=== PATIENT | male | born 1945 | race Caucasian/White ===

== ENCOUNTER 2016-09-12 08:34 | Observation (INO) | payer MEDICARE, OTHER ==
[2016-09-12] MEDS ORDERED: ASPIRIN CHEW 81 MG TABLET PO STA (08:50)
[2016-09-12] MEDS ORDERED: MORPHINE 2 MG/ML SYRINGE IVP STA (08:50)
[2016-09-12] MEDS ORDERED: NITROGLYCERIN 2% PASTE TOP STA (08:50)
[2016-09-12] MEDS ORDERED: ASPIRIN CHEW 81 MG TABLET ONE (08:57)
[2016-09-12] MEDS ORDERED: MORPHINE 2 MG/ML SYRINGE ONE (08:57)
[2016-09-12] MEDS ORDERED: NITROGLYCERIN 2% PASTE TOP ONE (08:57)
[2016-09-12] MEDS ORDERED: SODIUM CHLORIDE FLUSH 0.9% 10 ML SYRINGE IVP PRN (12:05)
[2016-09-12] MEDS ORDERED: MORPHINE 2 MG/ML SYRINGE IVP PRN (12:10)
[2016-09-12] MEDS: SODIUM CHLORIDE FLUSH 0.9% 10 ML SYRINGE IVP SCH ×2 (14:42→23:17)
[2016-09-12] MEDS ORDERED: NITROGLYCERIN SL 0.4 MG TABLET SL PRN (15:17)
[2016-09-12] MEDS ORDERED: DEXTROSE 5% 1,000 ML IV PRN (16:08)
[2016-09-12] MEDS ORDERED: DEXTROSE GEL 37.5 GM TUBE PO PRN (16:08)
[2016-09-12] MEDS ORDERED: DEXTROSE 50% ABBOJECT 25 GM/50 ML SYRINGE IVP PRN (16:08)
[2016-09-12] MEDS ORDERED: GLUCAGON 1 MG/ML VIAL SUBQ PRN (16:08)
[2016-09-12] MEDS ORDERED: INSULIN ASPART 300 UNIT/3 ML PEN SUBQ SCH ×2 (17:00)
[2016-09-12] MEDS ORDERED: ATORVASTATIN 40 MG TABLET PO SCH (21:00)
[2016-09-12] MEDS: INSULIN ASPART 300 UNIT/3 ML PEN SUBQ SCH (21:40)
[2016-09-12] MEDS: ATENOLOL 25 MG TABLET PO SCH (23:52)
[2016-09-13] MEDS: SODIUM CHLORIDE FLUSH 0.9% 10 ML SYRINGE IVP SCH (05:52)
[2016-09-13] MEDS: INSULIN ASPART 300 UNIT/3 ML PEN SUBQ SCH (07:56)
[2016-09-13] MEDS ORDERED: INSULIN ASPART 300 UNIT/3 ML PEN SUBQ SCH ×2 (08:00→12:00)
[2016-09-13] MEDS ORDERED: INSULIN GLARGINE 300 UNIT/3 ML PEN SUBQ SCH (09:00)
[2016-09-13] MEDS ORDERED: CLOPIDOGREL 75 MG TABLET PO SCH (09:00)
[2016-09-13] MEDS ORDERED: POLYETHYLENE GLYCOL 3350 17 GM PACKET PO SCH (09:00)
[2016-09-13] MEDS ORDERED: hydroCHLOROthiazide 25 MG TABLET PO SCH (09:00)
[2016-09-13] MEDS ORDERED: LOSARTAN 50 MG TABLET PO SCH (09:00)
[2016-09-13] MEDS ORDERED: ASPIRIN EC 81 MG TABLET PO SCH (09:00)
[2016-09-13] MEDS ORDERED: OLOPATADINE HCL EACHEYE SCH (09:00)
[2016-09-13] MEDS: ATENOLOL 25 MG TABLET PO SCH (09:32)
== END 2016-09-13 09:36 | disposition home or self-care (01) ==
DX: R07.89 Other chest pain (principal); I25.10 Atherosclerotic heart disease of native coronary artery without angina pectoris; I11.9 Hypertensive heart disease without heart failure; Z95.5 Presence of coronary angioplasty implant and graft; E11.9 Type 2 diabetes mellitus without complications; E78.5 Hyperlipidemia, unspecified; Z79.02 Long term (current) use of antithrombotics/antiplatelets; Z79.82 Long term (current) use of aspirin; Z79.899 Other long term (current) drug therapy
CPT/HCPCS: 36415; 71020; 80053; 83036; 83690; 84484; 85025; 93005; 93010; 96374; 99284; A9270; G0378

== ENCOUNTER 2017-11-25 17:36 | Emergency (ER) | payer MEDICARE, OTHER ==
[2017-11-25 17:44] VITALS: BP 132/51
--- NOTE | 2017-11-25 18:16 | ED Physician Documentation ---
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 [place] was dark and he did not see the open villeda, and he fell down into as he was walking. Landed on his feet, with abrasions of knees as he fell through the opening and struck left lateral thigh, with abrasion and focal swelling. Was able to get out and walk. Did not strike head, chest, abd, back. Fell about 4 feet down) Fall distance: Less than 5ft Where injury occurred: Work Timing - onset: Today Injury(ies) location: Right Lower Extremity (anterior knee), Left Lower Extremity (lateral thigh and anterior knee). No: Head, Face, Neck, Chest, Abdomen, Back Associated symptoms: No: LOC, AMS, Weakness, Paresthesias Worsens with: Palpation. No: Movement Contributing factors: No: Anticoagulated (takes Plavix but no anticoagulants), Intoxicated Similar symptoms before: Has not had sx before Recently seen: Not recently seen Review of Systems Cardiac: denies: Chest pain / pressure Respiratory: denies: Dyspnea, Cough GI: denies: Abdominal Pain, Nausea, Vomiting Musculoskeletal: denies: Neck pain, Back pain Neurologic: denies: Focal weakness, Numbness, Confused, Altered mental status, Headache, Head injury, LOC PD PAST MEDICAL HISTORY - Past Medical History Cardiovascular: Hypertension, High cholesterol, [place] Respiratory: None Endocrine/Autoimmune: Type 2 diabetes GI: None : None HEENT: Macular degeneration Psych: None Derm: None - Past Surgical History Past Surgical History: Yes Ortho: Rotator cuff repair Cardiovascular: Coronary stent - Present Medications Home Medications: Ambulatory Orders Medication Instructions Recorded Confirmed Aspirin [Aspir 81] 81 mg PO DAILY 06/07/14 09/12/16 Insulin Glargine [Lantus] 34 units SUBQ DAILY 06/07/14 09/12/16 Insulin Aspart [Novolog Flexpen] 5 - 10 units SUBQ QDLUNCH 09/12/16 09/12/16 Insulin Aspart [Novolog Flexpen] 5 - 15 units SUBQ QDBREAKFAST 09/12/16 09/12/16 Insulin Aspart [Novolog Flexpen] 9 - 10 units SUBQ QDDINNER 09/12/16 09/12/16 Olopatadine HCl [Patanol] 1 drops EACHEYE DAILY 09/12/16 09/12/16 Atenolol [Tenormin] 25 mg PO BID tablet 09/13/16 Atorvastatin [Lipitor] 80 mg PO QPM tablet 09/13/16 Clopidogrel [Plavix] 75 mg PO DAILY tablet 09/13/16 Insulin Aspart [NovoLOG] 1 - 9 unit SUBQ 09/13/16 0800,1200,1700,2100 pen Losartan [Cozaar] 100 mg PO DAILY tablet 09/13/16 Nitroglycerin [Nitrostat] 0.4 mg SL Q5M PRN #0 tablet 09/13/16 Polyethylene Glycol 3350 [Miralax] 17 gm PO DAILY packet 09/13/16 hydroCHLOROthiazide [Hydrodiuril] 25 mg PO DAILY tablet 09/13/16 - Allergies Allergies/Adverse Reactions: Allergies Allergy/AdvReac Type Severity Reaction Status Date / Time No Known Drug Allergies Allergy Verified 09/12/16 08:39 - Social History Does the pt smoke?: No Smoking Status: Never smoker Does the pt drink ETOH?: Yes Does the pt have substance abuse?: No - Immunizations Immunizations are current?: No Immunizations: TDAP current <10years - POLST Patient has POLST: No PD ED PE NORMAL - Vitals Vital signs reviewed: Yes - General General: Alert and oriented X 3, No acute distress (ambulatory without limp. ), Well developed/nourished - HEENT HEENT: Atraumatic - Neck Neck: Supple, no meningeal sign, No bony TTP - Cardiac Cardiac: RRR, No murmur - Respiratory Respiratory: Clear bilaterally, Other (no chestwall tenderness. ) - Abdomen Abdomen: Soft, Non tender - Back Back: No spinal TTP - Derm Derm: Normal color, Warm and dry - Extremities Extremities: Other (left lateral thigh hematoma and abrasion. No bony tenderness. Both knee with anterior abrasions but no effusion, no bony tenderness, and good ROM. ) - Neuro Neuro: Alert and oriented X 3, No motor deficit, No sensory deficit, Normal speech Eye Opening: Spontaneous Motor: Obeys Commands Verbal: Oriented GCS Score: 15 - Psych Psych: Normal mood, Normal affect Results - Vitals Vitals: Oxygen O2 Source Room air - Labs Labs: Laboratory Tests 11/25/17 11/25/17 11/25/17 18:05 18:05 18:05 WBC 10.1 RBC 4.25 L Hgb 13.9 L Hct 40.7 L MCV 95.7 H MCH 32.6 H MCHC 34.1 RDW 14.2 Plt Count 199 MPV 7.5 Neut # (Auto) 5.9 Lymph # (Auto) 3.2 [place] # (Auto) 0.6 Eos # (Auto) 0.3 Baso # (Auto) 0.1 Absolute Nucleated RBC 0.00 Nucleated RBC % 0.0 PT 11.8 INR 1.0 Sodium 136 Potassium 4.3 Chloride 101 Carbon Dioxide 26 Anion Gap 9.0 BUN 18 Creatinine 1.1 Estimated GFR (MDRD) 65 L Glucose 165 H Calcium 9.0 Total Bilirubin 1.0 AST 39 ALT 37 Alkaline Phosphatase 51 Total Protein 7.4 Albumin 4.3 Globulin 3.1 Albumin/Globulin Ratio 1.4 Lipase 20 L PD MEDICAL DECISION MAKING - ED course Complexity details: considered differential (did not strike head. Is on Plavix but not anticoagulants. Seems isolated lower ext injuries. ), d/w patient - Sepsis Event Vital Signs: Oxygen O2 Source Room air Departure - Departure Disposition: 01 Home, Self Care Clinical Impression: Fall from height of greater than 3 feet Knee abrasion Qualifiers: Encounter type: initial encounter Laterality: unspecified laterality Qualified Code(s): S80.219A - Abrasion, unspecified knee, initial encounter Thigh hematoma Qualifiers: Encounter type: initial encounter Laterality: left Qualified Code(s): S70.12XA - Contusion of left thigh, initial encounter Condition: Stable Record reviewed to determine appropriate education?: Yes Instructions: ED Hematoma Follow-Up: WARREN GOMEZ MD [Primary Care Provider] - Comments: Cleanse the wounds 2-3 times a day with soap and water and apply mupirocin ointment or other ointments so does not get dry and hard. Ice to the hematoma swelling this evening frequently. Activity as able. Recheck if signs of infection develop. Continue usual medications and drink lots of fluid. Tylenol if needed for pains. Discharge Date/Time: 11/25/17 19:17
[2017-11-25 18:32] LABS: ALBUMIN 4.3 g/dL (3.2-5.5); ALBUMIN/GLOBULIN RATIO 1.4 (1.0-2.2); BASOPHILS # (AUTO) 0.1 10^3/uL (0.0-0.1); BASOPHILS % (AUTO) 0.5 %; CREATININE 1.1 mg/dL (0.6-1.2); EOSINOPHILS # (AUTO) 0.3 10^3/uL (0.0-0.7); EOSINOPHILS % (AUTO) 3.3 %; HGB - HEMOGLOBIN 13.9 g/dL (14.0-18.0); LYMPHOCYTES # (AUTO) 3.2 10^3/uL (1.5-3.5); LYMPHOCYTES % (AUTO) 31.9 %; MEAN CORPUSCULAR HEMOGLOBIN 32.6 pg (27.0-31.0); MEAN CORPUSCULAR HGB CONC 34.1 g/dL (32.0-36.0); MEAN CORPUSCULAR VOLUME 95.7 fL (80.0-94.0); MEAN PLATELET VOLUME 7.5 fL (7.4-11.4); MONOCYTES # (AUTO) 0.6 10^3/uL (0.0-1.0); MONOCYTES % (AUTO) 5.7 %; NEUTROPHILS # (AUTO) 5.9 10^3/uL (1.5-6.6); NEUTROPHILS % (AUTO) 58.6 %; PLT - PLATELET COUNT 199 10^3/uL (130-450); RED BLOOD COUNT 4.25 10^6/uL (4.70-6.10); RED CELL DISTRIBUTION WIDTH 14.2 % (12.0-15.0); TOTAL PROTEIN 7.4 g/dL (6.7-8.2); WHITE BLOOD COUNT 10.1 x10^3/uL (4.8-10.8)
[2017-11-25] MEDS ORDERED: MUPIROCIN 2% OINT 1 GM TOP STA (18:34)
[2017-11-25 18:36] LABS: PT - PROTHROMBIN TIME 11.8 secs (9.9-12.6)
== END 2017-11-25 19:17 | disposition home or self-care (01) ==
LOC: ED 17:36
DX: S80.219A Abrasion, unspecified knee, initial encounter (principal); S70.12XA Contusion of left thigh, initial encounter; S70.312A Abrasion, left thigh, initial encounter; W17.89XA Other fall from one level to another, initial encounter; Y93.01 Activity, walking, marching and hiking; Y92.814 Boat as the place of occurrence of the external cause; Y99.0 Civilian activity done for income or pay; I10 Essential (primary) hypertension; E78.00 Pure hypercholesterolemia, unspecified; I25.2 Old myocardial infarction; E11.9 Type 2 diabetes mellitus without complications; Z79.4 Long term (current) use of insulin; Z95.5 Presence of coronary angioplasty implant and graft; Z79.82 Long term (current) use of aspirin; Z79.02 Long term (current) use of antithrombotics/antiplatelets
CPT/HCPCS: 36415; 80053; 83690; 85025; 85610; 99283; A9270

== ENCOUNTER 2020-03-09 14:37 | Outpatient (CLI) | payer MEDICARE, OTHER | END 2020-03-09 14:38 | disposition home or self-care (01) | LOC: COV 14:37 | PROVIDERS: ATTEND Family Medicine | DX: U07.1 COVID-19 (principal) ==

== ENCOUNTER 2020-03-21 07:18 | Observation (INO) | payer MEDICARE, OTHER ==
[2020-03-21] MEDS ORDERED: SODIUM CHLORIDE 0.9% 1,000 ML IV STA ×2 (07:37→08:56)
[2020-03-21] MEDS ORDERED: diltiaZEM INJ 5 MG/ML VIAL IVP STA ×2 (07:53→08:57)
--- NOTE | 2020-03-21 07:59 | ED Physician Documentation ---
History of Present Illness - Stated complaint Stated Complaint: WEAKNESS - Chief complaint Chief Complaint: General - History obtained from History obtained from: Patient, Family - Additonal information Additional information: Patient comes emergency department complaining of just feeling fatigued for the last approximately 3 to 4 days. The patient's states she noticed a big difference in the patient starting a few days ago. The patient and his have been quarantining for the last 2 weeks, secondary to the becoming positive for COVID. The patient also tested positive, but did not have much in the way of symptoms. He states he is felt a little more tired than usual, but for the last 3 days, has not felt like getting out of bed. He denies cough or shortness of breath. No chest pain or fever. No feeling of palpitations or lightheadedness. He states that he could not bring himself to take his meds and has not been taking his antihypertensives or his diabetic meds during these last few days. The patient denies nausea or vomiting. No abdominal pain or sore throat. No dysuria. states that the patient has a history of coronary artery disease and has had a couple of MIs. He has had angioplasty twice and the last stent placement was about 4 years ago. states that the last time the patient had a an CA, he was asymptomatic. Patient states he feels "dehyd rated". states the patient has not been eating much and had only a protein bar yesterday, though he did state he was hungry on the way to the hospital this patient denies any history of atrial fibrillation or other rhythm disorder. No other complaints at this time. Review of Systems Ten Systems: 10 systems reviewed and negative Constitutional: reports: Fatigue Eyes: reports: Reviewed and negative Ears: reports: Reviewed and negative Nose: reports: Reviewed and negative Throat: reports: Reviewed and negative Cardiac: reports: Reviewed and negative. denies: Chest pain / pressure, Palpitations Respiratory: reports: Reviewed and negative. denies: Dyspnea, Cough GI: reports: Reviewed and negative. denies: Nausea : reports: Reviewed and negative. denies: Dysuria Skin: reports: Reviewed and negative Musculoskeletal: reports: Reviewed and negative Neurologic: reports: Generalized weakness, Reviewed and negative Psychiatric: reports: Reviewed and negative Endocrine: reports: Reviewed and negative Immunocompromised: reports: Reviewed and negative PD PAST MEDICAL HISTORY - Past Medical History Cardiovascular: Hypertension, High cholesterol, [place] Respiratory: None Endocrine/Autoimmune: Type 2 diabetes GI: None : None HEENT: Macular degeneration Psych: None Derm: None - Past Surgical History Past Surgical History: Yes Ortho: Rotator cuff repair Cardiovascular: Coronary stent - Present Medications Home Medications: Ambulatory Orders Medication Instructions Recorded Confirmed Aspirin [Aspir 81] 81 mg PO DAILY 06/07/14 03/21/20 Insulin Glargine [Lantus] 0 units SUBQ DAILY 06/07/14 03/21/20 Olopatadine HCl [Patanol] 1 drops EACHEYE DAILY PRN 09/12/16 03/21/20 Atorvastatin [Lipitor] 80 mg PO QPM tablet 09/13/16 03/21/20 Clopidogrel [Plavix] 75 mg PO DAILY tablet 09/13/16 03/21/20 Nitroglycerin [Nitrostat] 0.4 mg SL Q5M PRN #0 tablet 09/13/16 03/21/20 Gabapentin [Neurontin] 200 mg PO TID 03/21/20 03/21/20 Losartan [Cozaar] 50 mg PO DAILY 03/21/20 03/21/20 Metformin HCl [Metformin HCl ER] 500 mg PO BID 03/21/20 03/21/20 atenoloL [Tenormin] 0.5 tab PO BID 03/21/20 03/21/20 - Allergies Allergies/Adverse Reactions: Allergies Allergy/AdvReac Type Severity Reaction Status Date / Time No Known Drug Allergies Allergy Verified 03/21/20 07:41 - Social History Does the pt smoke?: No Smoking Status: Never smoker Does the pt drink ETOH?: Yes Does the pt have substance abuse?: No - Immunizations Immunizations are current?: No Immunizations: TDAP current <10years - POLST Patient has POLST: No PD ED PE NORMAL - Vitals Vital signs reviewed: Yes - General General: Alert and oriented X 3, No acute distress - HEENT HEENT: Atraumatic, PERRL, EOMI, Moist mucous membranes - Neck Neck: Supple, no meningeal sign - Cardiac Cardiac: No murmur, Other (Irregular rate and rhythm, tachycardic) - Respiratory Respiratory: No respiratory distress, Clear bilaterally - Abdomen Abdomen: Soft, Non tender, Non distended - Back Back: No CVA TTP - Derm Derm: Normal color, Warm and dry, No rash - Extremities Extremities: No deformity, No edema, No calf tenderness / cord - Neuro Neuro: Alert and oriented X 3, Other (Grossly normal) - Psych Psych: Normal mood, Normal affect Results - Vitals Vitals: Vital Signs - 24 hr 03/21/20 03/21/20 10:00 11:30 Heart Rate 101 H 81 Respiratory 17 16 Rate Blood Pressure 139/66 H 111/73 O2 Saturation 97 98 Oxygen O2 Source Room air - EKG (time done) 0740 Rate: Rate (enter#) (155) Rhythm: Atrial fibrillation [place]: Normal Intervals: Normal [place] QRS: Normal Ischemia: Normal ST segments, Non specific changes Compare to prior EKG: Old EKG unavailable Computer interpretation: Agree with computer - Labs Labs: Laboratory Tests 03/21/20 03/21/20 03/21/20 07:33 07:50 07:50 WBC 10.3 RBC 5.17 Hgb 16.7 Hct 47.6 MCV 92.1 MCH 32.3 H MCHC 35.1 RDW 11.9 L Plt Count 210 MPV 9.9 Neut # (Auto) 7.9 H Lymph # (Auto) 1.5 [place] # (Auto) 0.7 Eos # (Auto) 0.1 Baso # (Auto) 0.0 Absolute Nucleated RBC 0.00 Nucleated RBC % 0.0 PT 13.3 H INR 1.2 VBG pH VBG pCO2 VBG pO2 VBG HCO3 VBG Total CO2 VBG O2 Saturation VBG Base Excess Sodium Potassium Chloride Carbon Dioxide Anion Gap BUN Creatinine Estimated GFR (MDRD) Glucose POC Whole Bld Glucose 434 H Calcium Total Bilirubin AST ALT Alkaline Phosphatase Troponin I High Sens B-Natriuretic Peptide Total Protein Albumin Globulin Albumin/Globulin Ratio Lipase Serum Ketones 03/21/20 03/21/20 03/21/20 07:50 07:50 07:50 WBC RBC Hgb Hct MCV MCH MCHC RDW Plt Count MPV Neut # (Auto) Lymph # (Auto) [place] # (Auto) Eos # (Auto) Baso # (Auto) Absolute Nucleated RBC Nucleated RBC % PT INR VBG pH VBG pCO2 VBG pO2 VBG HCO3 VBG Total CO2 VBG O2 Saturation VBG Base Excess Sodium 135 Potassium 5.2 H Chloride 92 L Carbon Dioxide 18 L Anion Gap 25.0 H BUN 38 H Creatinine 1.5 H Estimated GFR (MDRD) 46 L Glucose 496 H POC Whole Bld Glucose Calcium 9.6 Total Bilirubin 2.0 H AST 33 ALT 26 Alkaline Phosphatase 61 Troponin I High Sens 32.4 H* B-Natriuretic Peptide 187 H Total Protein 8.1 Albumin 3.9 Globulin 4.2 Albumin/Globulin Ratio 0.9 L Lipase 20 L Serum Ketones 03/21/20 03/21/20 03/21/20 09:35 10:23 10:36 WBC RBC Hgb Hct MCV MCH MCHC RDW Plt Count MPV Neut # (Auto) Lymph # (Auto) [place] # (Auto) Eos # (Auto) Baso # (Auto) Absolute Nucleated RBC Nucleated RBC % PT INR VBG pH 7.338 VBG pCO2 32.3 L VBG pO2 57.1 H VBG HCO3 17.0 L VBG Total CO2 17.9 L VBG O2 Saturation 88.2 H VBG Base Excess -7.6 L Sodium Potassium Chloride Carbon Dioxide Anion Gap BUN Creatinine Estimated GFR (MDRD) Glucose POC Whole Bld Glucose 409 H 341 H Calcium Total Bilirubin AST ALT Alkaline Phosphatase Troponin I High Sens B-Natriuretic Peptide Total Protein Albumin Globulin Albumin/Globulin Ratio Lipase Serum Ketones 03/21/20 03/21/20 10:36 10:36 WBC RBC Hgb Hct MCV MCH MCHC RDW Plt Count MPV Neut # (Auto) Lymph # (Auto) [place] # (Auto) Eos # (Auto) Baso # (Auto) Absolute Nucleated RBC Nucleated RBC % PT INR VBG pH VBG pCO2 VBG pO2 VBG HCO3 VBG Total CO2 VBG O2 Saturation VBG Base Excess Sodium Potassium Chloride Carbon Dioxide Anion Gap BUN Creatinine Estimated GFR (MDRD) Glucose POC Whole Bld Glucose Calcium Total Bilirubin AST ALT Alkaline Phosphatase Troponin I High Sens 32.7 H* B-Natriuretic Peptide Total Protein Albumin Globulin Albumin/Globulin Ratio Lipase Serum Ketones SMALL H PD MEDICAL DECISION MAKING - ED course Complexity details: reviewed old records, reviewed results, re-evaluated patient, considered differential, d/w patient, d/w family ED course: The patient was found to have a very tachycardic heart rate, and monitoring EKG showed a narrow complex rhythm with irregularity, consistent with atrial fibrillation with RVR. IV was placed and patient was started on a normal saline bolus. He was given 25 mg of Cardizem IV. The patient verified that he has not in any way had a distinctive onset of symptoms, only that he had been tired for the last several days. He had not felt any palpitations, chest pain, shortness of breath, or any other discomfort in his chest to indicate when the A. fib with RVR might of started. There is also not a distinctive beginning point to his tiredness. As such, I did not feel that this patient should be cardioverted at if his blood pressure was not low at this time and he was not having chest pain. Labs and chest x-ray were also obtained, as well as urinalysis. Pt showed some improvement in HR with Cardizem, but after 2 doses, was still tachycardic, and as such, I felt he should be admitted to the hospital. I spoke with Dr. Green, who agreed to admit the pt to his service. Departure - Departure Disposition: 66 [facility] DC/Xfer Clinical Impression: Atrial fibrillation with RVR, Hyperglycemia due to diabetes mellitus Condition: Serious Discharge Date/Time: 03/21/20 12:20
[2020-03-21 08:03] LABS: BASOPHILS % (AUTO) 0.3 %; EOSINOPHILS # (AUTO) 0.1 10^3/uL (0.0-0.7); EOSINOPHILS % (AUTO) 0.5 %; HGB - HEMOGLOBIN 16.7 g/dL (14.0-18.0); LYMPHOCYTES # (AUTO) 1.5 10^3/uL (1.5-3.5); MEAN CORPUSCULAR HEMOGLOBIN 32.3 pg (27.0-31.0); MEAN CORPUSCULAR HGB CONC 35.1 g/dL (32.0-36.0); MEAN CORPUSCULAR VOLUME 92.1 fL (80.0-94.0); MEAN PLATELET VOLUME 9.9 fL (7.4-11.4); MONOCYTES # (AUTO) 0.7 10^3/uL (0.0-1.0); MONOCYTES % (AUTO) 6.6 %; NEUTROPHILS # (AUTO) 7.9 10^3/uL (1.5-6.6); NEUTROPHILS % (AUTO) 77.1 %; PLT - PLATELET COUNT 210 10^3/uL (130-450); RED BLOOD COUNT 5.17 10^6/uL (4.70-6.10); RED CELL DISTRIBUTION WIDTH 11.9 % (12.0-15.0); WHITE BLOOD COUNT 10.3 x10^3/uL (4.8-10.8)
[2020-03-21 08:13] LABS: INR 1.2 (0.8-1.2); PT - PROTHROMBIN TIME 13.3 secs (9.9-12.6)
[2020-03-21 08:22] LABS: ALBUMIN 3.9 g/dL (3.2-5.5); ALBUMIN/GLOBULIN RATIO 0.9 (1.0-2.2); CALCIUM 9.6 mg/dL (8.5-10.3); CREATININE 1.5 mg/dL (0.6-1.2); TOTAL PROTEIN 8.1 g/dL (6.7-8.2)
[2020-03-21] MEDS ORDERED: INSULIN REGULAR HUMAN 300 UNIT/3 ML VIAL IVP ONE (08:25)
[2020-03-21] MEDS ORDERED: INSULIN ASPART 100 UNIT/1 ML 10 ML MDV SUBQ STA (08:29)
[2020-03-21] MEDS ORDERED: INSULIN REGULAR HUMAN 100 UNIT/1 ML 10 ML MDV IVP STA ×2 (08:30→09:37)
--- NOTE | 2020-03-21 09:01 | XRAY Report ---
PROCEDURE: Chest 1 View X-Ray INDICATIONS: chest pain TECHNIQUE: One view of the chest was acquired. COMPARISON: Chest x-ray 09/12/2016 FINDINGS: Surgical changes and devices: None. Lungs and pleura: No pleural effusions or pneumothorax. Lungs are clear. Mediastinum: Mediastinal contours appear normal. Heart size is mildly prominent. Bones and chest wall: No suspicious bony lesions. Overlying soft tissues appear unremarkable. Old right rib fractures IMPRESSION: No acute pulmonary process. Reviewed by: Emilia Hendricks MD on 03/21/2020 9:00 AM PDT Approved by: Emilia Hendricks MD on 03/21/2020 9:00 AM PDT Station ID: [id number]
[2020-03-21] MEDS ORDERED: METOPROLOL TARTRATE 50 MG TABLET PO STA (10:07)
[2020-03-21 10:59] LABS: VBG PCO2 32.3 mmHg (41-51); VBG PH 7.338 (7.31-7.41); VBG PO2 57.1 mmHg (25-47)
[2020-03-21 11:00] LABS: VBG BASE EXCESS -7.6 mmol/L (-2 - +2); VBG TOTAL CO2 17.9 mmol/L (24-29)
[2020-03-21] MEDS ORDERED: ONDANSETRON 4 MG/2 ML VIAL IVP PRN (11:34)
[2020-03-21] MEDS ORDERED: ACETAMINOPHEN 325 MG TABLET PO PRN (11:34)
[2020-03-21] MEDS ORDERED: SODIUM CHLORIDE FLUSH 0.9% 10 ML SYRINGE IVP PRN (11:34)
--- NOTE | 2020-03-21 11:38 | HISTORY & PHYSICAL EXAMINATION ---
Chief Complaint - Chief Complaint Chief Complaint: Fatigue and poor oral intake History of Present Illness - Admitted From Admitted From:: Home - History Obtained From Records Reviewed: Yes History obtained from: Patient, Spouse, ER Physician, EMR - History of Present Illness HPI Comment/Other: This is a pleasant 74-year-old male with a past medical history significant for type 2 diabetes mellitus treated with insulin, coronary artery disease status post stenting approximately 4 years ago, hyperlipidemia, and recent diagnosis of COVID-19 who presents today complaining of weakness and poor oral intake for the past few days. The patient states he came to the ER today because his was concerned that he had not been eating much and was quite fatigued. His tells me that she was diagnosed with COVID-19 a few weeks ago and her was diagnosed on March 09. They have both been in quarantine since that period of time. The patient states he stopped taking his medications after the diagnosis for an unclear reason but he states that he just was shocked by the diagnosis. He reports taking no insulin or any of his cardiac meds since that time. He has had progressive fatigue that has really become more prominent this past few days. His notes that he has been much been in bed the past 2 to 3 days. He has not been eating much at all. All he had yesterday was a protein shake. He reports just feeling fatigued and generalized weakness. He reports no fevers, chills, dyspnea. Denies any sore throat, nasal congestion. He reports no chest pain or palpitations. He states he did have diarrhea about a week ago but this has since resolved. He has no abdominal pain, nausea, vomiting. He reports a history of coronary artery disease with stenting about 4 years ago at [place]. He has never had a diagnosis of atrial fibrillation in the past. He tells me he takes Plavix daily but he is no longer on aspirin. He has not taken the Plavix just like the rest of his medications this past 2 weeks. In the emergency department, he was found to be afebrile with temperature of 36.3 C. He was tachycardic with a heart rate in the 110s and he was in atrial fibrillation. His blood pressure is 125/47. He was not tachypneic and saturating 99% on room air. Labs were significant for a bicarbonate of 18, anion gap of 25, BUN of 38, and a creatinine of 1.5. His troponin was elevated at 32.4. His BNP was 187. His blood glucose was 496 on the basic metabolic panel. Serum ketones were small. VBG revealed a pH of 7.338. Chest x-ray was unremarkable. EKG revealed atrial fibrillation with heart rates in the 150s. Received 25 mg of IV diltiazem initially followed by 20 mg push an hour later. His heart rates have since improved to the 90s to low 100s. He was given 10 units of IV insulin initially followed by another 10 units an hour later as well. He also received 2 L of normal saline in the emergency department. Given the above findings, medicine was consulted for admission. I did discuss goals of care with the patient and he would like to be a full code. History - Past Medical History Cardiovascular: reports: Hypertension, High cholesterol, [place] Respiratory: reports: None Endocrine/Autoimmune: reports: Type 2 diabetes GI: reports: None : reports: None HEENT: reports: Macular degeneration Psych: reports: None Derm: reports: None MRSA Hx?: No - Past Surgical History Ortho: reports: Rotator cuff repair Cardiovascular: reports: Coronary stent - Family & Social History Family History Comment/Other: Father had prostate cancer and his mother had a stroke. He reports no other family history. Both of his parents are . He still has one living brother. Living arrangement: At home Living Situation: With spouse/s.o. Social History Notes: Lives at home with his . He was previously in the [employer] but retired in 1988. He is a non-smoker and does not drink alcohol. - POLST Patient has POLST: No Meds/Allgy - Home Medications Home Medications: Ambulatory Orders Medication Instructions Recorded Confirmed Aspirin [Aspir 81] 81 mg PO DAILY 06/07/14 03/21/20 Insulin Glargine [Lantus] 0 units SUBQ DAILY 06/07/14 03/21/20 Olopatadine HCl [Patanol] 1 drops EACHEYE DAILY PRN 09/12/16 03/21/20 Atorvastatin [Lipitor] 80 mg PO QPM tablet 09/13/16 03/21/20 Clopidogrel [Plavix] 75 mg PO DAILY tablet 09/13/16 03/21/20 Nitroglycerin [Nitrostat] 0.4 mg SL Q5M PRN #0 tablet 09/13/16 03/21/20 Gabapentin [Neurontin] 200 mg PO TID 03/21/20 03/21/20 Losartan [Cozaar] 50 mg PO DAILY 03/21/20 03/21/20 Metformin HCl [Metformin HCl ER] 500 mg PO BID 03/21/20 03/21/20 atenoloL [Tenormin] 0.5 tab PO BID 03/21/20 03/21/20 - Allergies Allergies/Adverse Reactions: Allergies Allergy/AdvReac Type Severity Reaction Status Date / Time No Known Drug Allergies Allergy Verified 03/21/20 07:41 Review of Systems - Constitutional Constitutional: reports: Fatigue, Weakness, Poor appetite. denies: Fever, Chills - Eyes Eyes: denies: Blurred vision - Ears, Nose & Throat Ears, Nose & Throat: denies: Nasal discharge, Postnasal drainage, Sore throat - Cardiovascular Cariovascular: denies: Palpitations, Chest pain, Edema, Exertional dyspnea, Decr. exercise tolerance - Respiratory Respiratory: denies: Cough, SOB at rest, SOB with exertion - Gastrointestinal Gastrointestinal: reports: Constipation, Poor appetite. denies: Abdominal pain, Nausea, Vomiting - Genitourinary Genitourinary: denies: Dysuria, Frequency, Urgency, Hematuria - Musculoskeletal Musculoskeletal: reports: Muscle weakness - Integumentary Integumentary: denies: Rash - Neurological Neurological: reports: General weakness. denies: Focal weakness, Headache - Endocrine Endocrine: denies: Polyuria - Hematologic/Lymphatic Hematologic/Lymphatic: denies: Anemia, Bleeding tendencies - All Other Systems All Other Systems: reports: Reviewed and negative Prior Level of Functionality: He is independent with his ADLs. Exam - Vital Signs Reviewed Vital Signs: Yes Vital Signs: Vital Signs x48h Temp Pulse Resp BP Pulse Ox 03/21/20 10:00 101 H 17 139/66 H 97 03/21/20 09:00 101 H 17 153/90 H 97 03/21/20 08:30 129 H 13 166/70 H 98 03/21/20 08:00 113 H 16 125/47 L 99 03/21/20 07:25 36.3 C L 84 13 179/109 H 97 - Physical Exam General Appearance: positive: No acute distress (He appears fatigued in bed but is comfortable and not in distress.), Alert, Other Eyes Bilateral: positive: Normal inspection, Conjunctivae nml ENT: positive: ENT inspection nml Neck: positive: Nml inspection Respiratory: positive: No respiratory distress. negative: Wheezes, Rales Cardiovascular: positive: No murmur, Irregularly irregular. negative: Tachycardia, Bradycardia, Systolic murmur Abdomen: positive: Non-tender, No distention. negative: Tenderness, Guarding, Rebound Skin: positive: No rash, Warm, Dry Extremities: positive: Full ROM, No pedal edema Neurologic/Psychiatric: positive: Oriented x3, Motor nml. negative: Disoriented to person, Disoriented to place, Disoriented to time, Facial droop, Slurred/abnml speech Conclusion/Plan - Problem List (1) Atrial fibrillation with RVR Conclusion/Plan: He presented in atrial fibrillation with rapid ventricular response. His initial heart were in the 150s but he is now in the 80s after receiving diltiazem IV twice. This appears to be a new diagnosis for him. We did discuss anticoagulation and he is agreeable to this. We will start him on Eliquis 5 mg twice daily. He is on atenolol at home. We will switch him to metoprolol 50 mg twice daily. We will obtain echocardiogram. Her troponins are mildly elevated which is likely demand ischemia but we will continue to trend these. Check a TSH. Monitor on telemetry. (2) Type 2 diabetes mellitus with hyperglycemia, with long-term current use of insulin Conclusion/Plan: She has type 2 diabetes mellitus for which she takes metformin and Lantus. He has not taken his medications in nearly 2 weeks and has had poor oral intake. He presents today with hyperglycemia. Although his anion gap is increasing his bicarbonate is decreased, do not suspect that he has diabetic ketoacidosis. We will place him on a clear liquid diet and continue him on his home dose of Lantus once the dose is confirmed and sliding scale. He has received 20 units of IV insulin in the emergency department. We will recheck a BMP this evening. If his anion gap is improving we will place him on a carb controlled diet. (3) Acute kidney injury Conclusion/Plan: This is likely prerenal injury. His creatinine is elevated at 1.5 and his baseline is 1.0. This is likely due to dehydration from poor oral intake and hyperglycemia. We will continue him on IV fluids. We will hold his home losartan. Monitor his renal function and urine output. (4) Increased anion gap metabolic acidosis Conclusion/Plan: His anion gap is increased at 25 and his bicarbonate is decreased at 18. Serum ketones are small. pH on VBG is 7.3. Although he does have hyperglycemia, I do not suspect that this is diabetic ketoacidosis. This may potentially be starvation ketoacidosis given his poor oral intake over the past 2 weeks. He has received 2 L of normal saline in the emergency department. We will place him on a clear liquid diet and recheck a BMP this evening. If his anion gap has decreased we will place him on a carb controlled diet. I do not believe he needs IV insulin at this time. He has already received 20 units of IV insulin in the emergency department we will place him on a sliding scale and continue his home Lantus dose once the dose is confirmed by pharmacy. (5) COVID-19 virus infection Conclusion/Plan: He was diagnosed on March 09 with COVID-19. This is exactly 12 days ago. Reports no respiratory symptoms and his chest x-ray is unremarkable. He has stopped taking his home medications after this diagnosis due to the shock of it. This is also likely contributing to his current fatigue and poor oral intake. We will put him on contact precautions. We will check him once again via PCR. (6) Coronary artery disease Conclusion/Plan: This appears stable. His troponin is mildly elevated which is likely demand ischemia. His EKG does not suggest ischemia and he has no chest pain. We will need to confirm his home medications as he states he is only on Plavix and not aspirin as he will need anticoagulation as well. Once is confirmed by pharmacy, we will either resume aspirin or Plavix in addition to the Eliquis but there is no indication for triple therapy. - Lab Results Lab results reviewed: Yes Fish Bones: 03/21/20 07:50 03/21/20 07:50 - Diagnostic Imaging Results Diagnostic Imaging Results: positive: Final report reviewed - EKG Results EKG Interpreted Independently: Yes EKG Comparison: Changed from prior EKG (This is changed from his prior EKG which was sinus rhythm with flat T waves in the inferior leads.) EKG Findings: EKG reveals atrial fibrillation with heart rates in the 150s. There are nonspecific ST segment changes likely related to tachycardia. Core Measures - Anticipated LOS I expect patient to be DC'd or transferred within 96 hours.: Yes - Issues Hospital Issues and Management Plan: 74-year-old male with coronary artery disease and type 2 diabetes mellitus treated with insulin presents with weakness found to be in atrial fibrillation with RVR and hyperglycemic. Will place in observation for rate control and IV fluids and treatment of the hyperglycemia. We will rule him out for COVID once again given he was diagnosed 12 days ago. - DVT/VTE - Prophylaxis VTE/DVT Device ordered at admit?: Yes VTE/DVT Prophylaxis med ordered at admit?: No
[2020-03-21 12:26] LABS: CALCIUM 8.5 mg/dL (8.5-10.3); MAGNESIUM 2.2 mg/dL (1.7-2.8)
--- NOTE | 2020-03-21 12:34 | PHARMACY PROGRESS NOTE ---
- Monitoring Indication for anticoagulation: Atrial Fibrillation Previous home regime: NONE - MEDICATION NEW START Potentially interacting medications: TWO ANTIPLATELET MEDICATIONS - ASPIRIN AND CLOPIDOGREL, MAY INCREASE RISK OF BLEEDING Other anticoagulation: None Risk factors for bleed: Heart disease or NE, Renal insufficiency, Age >65, Diabetes - Recommendations Dosing: Anticoagulation Monitoring 03/21/20 03/21/20 07:50 07:50 Hgb 16.7 Hct 47.6 PT 13.3 H INR 1.2 Last Dose Given: NEW START S&S of bleeding: NONE NOTED Pharmacy recommendation: Continue current regime
[2020-03-21] MEDS: INSULIN ASPART 300 UNIT/3 ML PEN SUBQ SCH ×3 (13:06→21:35)
[2020-03-21] MEDS: GABAPENTIN 100 MG CAPSULE PO SCH ×2 (13:10→21:34)
[2020-03-21] MEDS: SODIUM CHLORIDE 0.9% 1,000 ML IV SCH ×2 (13:10→21:34)
--- NOTE | 2020-03-21 13:16 | PHARMACY PROGRESS NOTE ---
- Best Possible Medication History Admit Date and Time: 03/21/20 1134 Processed by: Nursing Medication History completed: Yes As the person ultimately responsible for medication therapy, providers are able to order a medication from an existing home medication list in [facility] via the "Reconcile Routine" prior to Confirmation of that medication by field technical support consultant. Such practice is discouraged except when the physician, in their clinical judgment, deems that a medical need exists for a medication without regard to previous use.
[2020-03-21 13:20] LABS: GLUCOSE, URINE (UA) >=1000 mg/dL (NEGATIVE); KETONES,URINE (UA) 40 mg/dL (NEGATIVE); LEUKOCYTE ESTERASE, URINE NEGATIVE (NEGATIVE); NITRITE,URINE NEGATIVE (NEGATIVE); OCCULT BLOOD,URINE SMALL (NEGATIVE); PH,URINE 5.5 PH (5.0-7.5); PROTEIN,URINE TRACE mg/dL (NEGATIVE); UROBILINOGEN,URINE 0.2 (NORMAL) E.U./dL (NORMAL)
[2020-03-21 13:32] LABS: BILIRUBIN,URINE NEGATIVE (NEGATIVE); CLARITY,URINE CLEAR (CLEAR); ICTOTEST,URINE NEGATIVE
[2020-03-21 13:33] LABS: BACTERIA,URINE Rare /HPF (None Seen); RBC,URINE 0-5 /HPF (0-5); SQUAMOUS EPITHELIAL CELL,UR RARE Squamous (<= Few)
[2020-03-21] MEDS: SODIUM CHLORIDE FLUSH 0.9% 10 ML SYRINGE IVP SCH (17:31)
[2020-03-21] MEDS ORDERED: ATORVASTATIN 40 MG TABLET PO SCH (21:00)
[2020-03-21] MEDS: METOPROLOL TARTRATE 50 MG TABLET PO SCH (21:34)
[2020-03-21] MEDS: APIXABAN 5 MG TABLET PO SCH (21:35)
[2020-03-22] MEDS: SODIUM CHLORIDE FLUSH 0.9% 10 ML SYRINGE IVP SCH ×3 (02:21→17:21)
[2020-03-22] MEDS: GABAPENTIN 100 MG CAPSULE PO SCH ×2 (05:37→13:19)
[2020-03-22 05:42] LABS: BASOPHILS % (AUTO) 0.1 %; EOSINOPHILS % (AUTO) 0.1 %; HGB - HEMOGLOBIN 14.1 g/dL (14.0-18.0); LYMPHOCYTES # (AUTO) 1.6 10^3/uL (1.5-3.5); LYMPHOCYTES % (AUTO) 20.9 %; MEAN CORPUSCULAR HEMOGLOBIN 31.8 pg (27.0-31.0); MEAN CORPUSCULAR HGB CONC 34.6 g/dL (32.0-36.0); MEAN CORPUSCULAR VOLUME 91.9 fL (80.0-94.0); MONOCYTES # (AUTO) 0.5 10^3/uL (0.0-1.0); MONOCYTES % (AUTO) 6.6 %; NEUTROPHILS # (AUTO) 5.3 10^3/uL (1.5-6.6); NEUTROPHILS % (AUTO) 71.9 %; PLT - PLATELET COUNT 193 10^3/uL (130-450); RED BLOOD COUNT 4.43 10^6/uL (4.70-6.10); RED CELL DISTRIBUTION WIDTH 12.1 % (12.0-15.0); WHITE BLOOD COUNT 7.4 x10^3/uL (4.8-10.8)
[2020-03-22 05:54] LABS: CALCIUM 8.4 mg/dL (8.5-10.3); MAGNESIUM 1.9 mg/dL (1.7-2.8); PHOSPHORUS 2.4 mg/dL (2.5-4.6)
[2020-03-22 06:14] LABS: CREATININE 0.8 mg/dL (0.6-1.2)
[2020-03-22] MEDS: SODIUM CHLORIDE 0.9% 1,000 ML IV SCH (07:39)
[2020-03-22] MEDS: INSULIN ASPART 300 UNIT/3 ML PEN SUBQ SCH ×3 (07:45→17:20)
[2020-03-22] MEDS: METOPROLOL TARTRATE 50 MG TABLET PO SCH (08:41)
[2020-03-22] MEDS: APIXABAN 5 MG TABLET PO SCH (08:43)
[2020-03-22] MEDS ORDERED: INSULIN GLARGINE 300 UNIT/3 ML PEN SUBQ SCH (09:00)
[2020-03-22 11:58] LABS: HEMOGLOBIN A1c% 12.6 % (4.27-6.07)
--- NOTE | 2020-03-22 15:44 | Discharge Plan ---
Discharge Plan Problem Reviewed?: Yes Disposition: Home, Self Care Condition: Serious Prescriptions: Apixaban [Eliquis] 5 mg PO BID #60 tablet Metoprolol Succinate 50 mg PO BID #60 tab.er.24h Diet: Low Sodium Activity Restrictions: Activity as Tolerated Shower Restrictions: No Driving Restrictions: No Instruction Topics: Stroke Prevent Live W Atrial Fib, Atrial Fibrillation Health Concerns: You were in Observation status after you presented with marked weakness and we found you to be in Atrial fib heart rhythm with a rapid rate, and with very poorly controlled elevated glucose level. You had stopped taking your medications several weeks ago and that led to these consequences. A repeat COVID swab test was done while you were here, and the results are still not back. You are being sent home on 2 new medications: Eliquis and Metoprolol Succinate. Both prescriptions were electronically sent to the [facility] in [place]. Please stop taking the Atenolol and the Plavix. Resume all your other pre-hospital medications. You need to see your Pipelines Manager, JAVI Smith for further management of the new onset of Atrial fib and findings of heart failure on Echocardiogram (the strength of your heart has decreased substantially which is called CHF.) Plan of Treatment: As above. Care Goals: Improvement in symptoms and stabilization are the goals. Assessment: Patient understands and is agreeable with the plan. Additional Instructions or Follow Up instructions: If you have new or worsening symptoms, call your PCP or Pipelines Manager for advice or come to the ER. No Smoking: If you smoke, Please STOP! Call for help. Follow-up with: Nyasia Claudio DO [Physician No Access] -
--- NOTE | 2020-03-22 15:52 | DISCHARGE SUMMARY ---
Discharge Summary Admit Date: 03/21/20 Discharge Date: 03/22/20 Discharging Provider: Dr Kati Vásquez Primary Care Provider: Dr Nyasia Claudio Code Status: Attempt Resuscitation Condition at Discharge: Stable Discharge Disposition: 01 Home, Self Care - HPI History of Present Illness: From the admission H&P of Dr. Mendez Cm: This is a pleasant 74-year-old male with a past medical history significant for type 2 diabetes mellitus treated with insulin, coronary artery disease status post stenting approximately 4 years ago, hyperlipidemia, and recent diagnosis of COVID-19 who presents today complaining of weakness and poor oral intake for the past few days. The patient states he came to the ER today because his was concerned that he had not been eating much and was quite fatigued. His tells me that she was diagnosed with COVID-19 a few weeks ago and her was diagnosed on March 09. They have both been in quarantine since that period of time. The patient states he stopped taking his medications after the diagnosis for an unclear reason but he states that he just was shocked by the diagnosis. He reports taking no insulin or any of his cardiac meds since that time. He has had progressive fatigue that has really become more prominent this past few days. His notes that he has been much been in bed the past 2 to 3 days. He has not been eating much at all. All he had yesterday was a protein shake. He reports just feeling fatigued and generalized weakness. He reports no fevers, chills, dyspnea. Denies any sore throat, nasal congestion. He reports no chest pain or palpitations. He states he did have diarrhea about a week ago but this has since resolved. He has no abdominal pain, nausea, vomiting. He reports a history of coronary artery disease with stenting about 4 years ago at [place]. He has never had a diagnosis of atrial fibrillation in the past. He tells me he takes Plavix daily but he is no longer on aspirin. He has not taken the Plavix just like the rest of his medications this past 2 weeks. In the emergency department, he was found to be afebrile with temperature of 36.3 C. He was tachycardic with a heart rate in the 110s and he was in atrial fibrillation. His blood pressure is 125/47. He was not tachypneic and saturating 99% on room air. Labs were significant for a bicarbonate of 18, anion gap of 25, BUN of 38, and a creatinine of 1.5. His troponin was elevated at 32.4. His BNP was 187. His blood glucose was 496 on the basic metabolic panel. Serum ketones were small. VBG revealed a pH of 7.338. Chest x-ray was unremarkable. EKG revealed atrial fibrillation with heart rates in the 150s. Received 25 mg of IV diltiazem initially followed by 20 mg push an hour later. His heart rates have since improved to the 90s to low 100s. He was given 10 units of IV insulin initially followed by another 10 units an hour later as well. He also received 2 L of normal saline in the emergency department. Given the above findings, medicine was consulted for admission. I did discuss goals of care with the patient and he would like to be a Full Code. - HOSPITAL COURSE Hospital Course: (1) Atrial fibrillation with RVR He presented in atrial fibrillation, of new onset, and with rapid ventricular response. His initial hearts were in the 150s but improved to the 80s after receiving diltiazem IV twice. His CHADS score was 4 (CHF [see below], HTN, age over 75 and DM). He was started on Eliquis 5 mg twice daily. He was on Atenolol at home, which was changed to Metoprolol 50 mg twice daily, that continued to keep his HR in the 80's. The troponins were mildly elevated but flat at 32,32, 34, possibly from demand ischemia from tachycardia. A TSH level was normal. At the time of discharge, he was prescribed new Metoprolol Succinate 50 mg twice daily, Eliquis 5 mg twice daily, told to resume baby aspirin daily but stop the daily Plavix, and also to stop Atenolol. (2) Systolic heart failure He underwent a resting Echo for evaluation of the new onset A. fib. The performance of the Echo was delayed, since he has positive Covid status, in order to make his Echo the final Echo of the day before equipment would need to be cleaned at length for a Covid pos patient exposure. He needed to stay longer than the expected 24 hours in Observation status therefore. The Echo found moderately depressed LVEF of 35%, moderate mitral regurgitation and pulm HTN with PA pressure 50-55mmHg. Patient has evidence of an old IN with inferior Q waves on his EKG, but we have no prior Echoes to know what his previous ejection fraction was. If this is a new drop in LV systolic function, it may be related to longstanding tachycardia; in Afib with poor rate control. He was kept on his Losartan. He was not in fluid overload, therefore he was not started on Spironolactone or Lasix. And his beta-julian was changed, as described above. He was told he needs Cardiology follow-up JAVI. (2) Type 2 diabetes mellitus with hyperglycemia, with long-term current use of insulin He has type 2 diabetes mellitus for which he was taking Metformin and Lantus. He had not taken his medications in nearly 2 weeks and had had poor oral intake. He was put on a clear liquid diet and continued him on his home dose of Lantus and sliding scale Reg Insulin. An A1c was done: result was 12.7 (3) Acute kidney injury His creatinine was elevated at 1.5 and his baseline is 1.0. This was likely due to dehydration from poor oral intake and hyperglycemia causing pre-renal azotemia. He was put on IV fluids. Losartan was put on hnold. By the following day, he felt more energy, and BUN/creat was 23/0.8. (4) Increased anion gap metabolic acidosis His anion gap was increased at 25 and his bicarbonate was decreased at 18 at admission. Serum ketones were small and pH on VBG is 7.3. This may potentially be starvation ketoacidosis given his poor oral intake over the past 2 weeks. He received 2 L of normal saline in the emergency department. He continued to receive fluids at 100 cc/hr and he was placed on a clear liquid diet with sliding scale Insulin coverage. He did not require an Insulin drip. By the following morning, his anion gap was normal at 12. (5) COVID-19 virus infection He was diagnosed on March 09 with COVID-19. This was exactly 12 days before this presentation. He reported no respiratory symptoms and his chest x-ray was unremarkable. He had stopped taking his home medications after this diagnosis "due to the shock of it". This is also likely contributing to his current fatigue and poor oral intake. He was put on contact precautions and a COVID swab was sent. Results were pending at the time of discharge. (6) Coronary artery disease This appeared stable. His troponin was mildly elevated but "flat". His EKG did not suggest ischemia and he had no chest pain. Since he was started on Eliquis, he was told to resume baby aspirin and stop daily Plavix, since the stent was done 3 or 4 years ago. - ALLERGIES Allergies/Adverse Reactions: Allergies Allergy/AdvReac Type Severity Reaction Status Date / Time No Known Drug Allergies Allergy Verified 03/21/20 07:41 - MEDICATIONS Home Medications: Ambulatory Orders Medication Instructions Recorded Confirmed Aspirin [Aspir 81] 81 mg PO DAILY 06/07/14 03/21/20 Insulin Glargine [Lantus] 0 units SUBQ DAILY 06/07/14 03/21/20 Olopatadine HCl [Patanol] 1 drops EACHEYE DAILY PRN 09/12/16 03/21/20 Atorvastatin [Lipitor] 80 mg PO QPM tablet 09/13/16 03/21/20 Nitroglycerin [Nitrostat] 0.4 mg SL Q5M PRN #0 tablet 09/13/16 03/21/20 Gabapentin [Neurontin] 200 mg PO TID 03/21/20 03/21/20 Losartan [Cozaar] 50 mg PO DAILY 03/21/20 03/21/20 Metformin HCl [Metformin HCl ER] 500 mg PO BID 03/21/20 03/21/20 Apixaban [Eliquis] 5 mg PO BID #60 tablet 03/22/20 Metoprolol Succinate 50 mg PO BID #60 tab.er.24h 03/22/20 - PHYSICAL EXAM AT DISCHARGE General Appearance: positive: No acute distress, Alert Eyes Bilateral: positive: Normal inspection, EOMI ENT: positive: ENT inspection nml, No signs of dehydration Neck: positive: Nml inspection, No JVD Respiratory: positive: No respiratory distress Cardiovascular: positive: Irregularly irregular, Systolic murmur Abdomen: positive: No distention Skin: positive: Warm, Dry Extremities: positive: No pedal edema Neurologic/Psychiatric: positive: Oriented x3 (Non-focal) - LABS Result Diagrams: 03/22/20 05:31 03/22/20 05:31
[2020-03-22 17:38] VITALS: BP 133/71
[2020-03-22] MEDS ORDERED: APIXABAN 5 MG TABLET PO SCH (18:00)
[2020-03-22] MEDS ORDERED: METOPROLOL SUCCINATE 25 MG TABLET PO ONE (18:00)
[2020-03-23] MEDS ORDERED: APIXABAN 5 MG TABLET PO SCH (09:00)
== END 2020-03-22 18:20 | disposition home or self-care (01) ==
LOC: ED 07:18 → MS2 11:34
PROVIDERS: ADMIT Internal Medicine; ATTEND Internal Medicine
DX: I48.91 Unspecified atrial fibrillation (principal); I11.0 Hypertensive heart disease with heart failure; I50.20 Unspecified systolic (congestive) heart failure; E11.65 Type 2 diabetes mellitus with hyperglycemia; N17.9 Acute kidney failure, unspecified; I08.1 Rheumatic disorders of both mitral and tricuspid valves; I27.20 Pulmonary hypertension, unspecified; E87.2 Acidosis; U07.1 COVID-19; I25.10 Atherosclerotic heart disease of native coronary artery without angina pectoris; E78.5 Hyperlipidemia, unspecified; H35.30 Unspecified macular degeneration; T38.3X6A Underdosing of insulin and oral hypoglycemic [antidiabetic] drugs, initial encounter; T45.526A Underdosing of antithrombotic drugs, initial encounter; T44.7X6A Underdosing of beta-adrenoreceptor antagonists, initial encounter; Z91.138 Patient's unintentional underdosing of medication regimen for other reason; Y92.009 Unspecified place in unspecified non-institutional (private) residence as the place of occurrence of the external cause; Z95.5 Presence of coronary angioplasty implant and graft; I25.2 Old myocardial infarction
CPT/HCPCS: 36415; 71045; 80048; 80053; 81001; 82009; 82803; 83036; 83690; 83735; 83880; 84100; 84443; 84484; 85025; 85610; 93005; 93306; 96374; 96376; 99285; A9270; G0378; J1815; U0004; 81003; 87086

== ENCOUNTER 2021-05-07 11:21 | Outpatient (CLI) | payer MEDICARE, OTHER | END 2021-05-07 11:22 | disposition short-term general hospital (02) | LOC: EMS 11:21 | DX: Z04.3 Encounter for examination and observation following other accident (principal); R07.89 Other chest pain; R40.4 Transient alteration of awareness | CPT/HCPCS: A0425; A0427 ==

== ENCOUNTER 2022-10-14 16:22 | Emergency (ER) | payer MEDICARE, OTHER ==
[2022-10-14 16:32] VITALS: BP 121/79
[2022-10-14 16:45] LABS: BASOPHILS # (AUTO) 0.1 10^3/uL (0.0-0.1); BASOPHILS % (AUTO) 1.5 %; EOSINOPHILS # (AUTO) 0.3 10^3/uL (0.0-0.7); EOSINOPHILS % (AUTO) 5.1 %; HCT - HEMATOCRIT 40.4 % (42.0-52.0); HGB - HEMOGLOBIN 12.9 g/dL (14.0-18.0); LYMPHOCYTES # (AUTO) 1.6 10^3/uL (1.5-3.5); LYMPHOCYTES % (AUTO) 30.3 %; MEAN CORPUSCULAR HEMOGLOBIN 30.3 pg (27.0-31.0); MEAN CORPUSCULAR HGB CONC 31.9 g/dL (32.0-36.0); MEAN CORPUSCULAR VOLUME 94.8 fL (80.0-94.0); MEAN PLATELET VOLUME 9.8 fL (7.4-11.4); MONOCYTES # (AUTO) 0.3 10^3/uL (0.0-1.0); MONOCYTES % (AUTO) 5.6 %; NEUTROPHILS % (AUTO) 57.3 %; PLT - PLATELET COUNT 154 10^3/uL (130-450); RED BLOOD COUNT 4.26 10^6/uL (4.70-6.10); RED CELL DISTRIBUTION WIDTH 13.4 % (12.0-15.0); WHITE BLOOD COUNT 5.3 x10^3/uL (4.8-10.8)
[2022-10-14 16:57] LABS: ALBUMIN 3.8 g/dL (3.2-5.5); ALBUMIN/GLOBULIN RATIO 1.3 (1.0-2.2); BILIRUBIN,TOTAL 1.3 mg/dL (0.2-1.0); CALCIUM 8.7 mg/dL (8.5-10.3); TOTAL PROTEIN 6.8 g/dL (6.7-8.2)
--- NOTE | 2022-10-14 17:02 | CT Report ---
PROCEDURE: HEAD WO INDICATIONS: fall, head injury, pt on eliquis TECHNIQUE: Noncontrast 4.5 mm thick angled axial sections acquired from the foramen magnum to the vertex. For r adiation dose reduction, the following was used: automated exposure control, adjustment of mA and/or kV according to patient size. COMPARISON: None. FINDINGS: Image quality: There is streak artifact seen through the skull base. CSF spaces: Basal cisterns are patent. No extra-axial fluid collections. Ventricles are normal in size and shape. Brain: No midline shift. No intracranial masses or hemorrhage. Gallo-white matter interface is norm al. Skull and face: Calvarium and visualized facial bones are intact, without suspicious lesions. Sinuses: Visualized sinuses and mastoids are clear. IMPRESSION: No intracranial hemorrhage is seen. No significant intracranial abnormality is seen. Age-appropriate brain parenchymal volume loss and chronic small vessel ischemic change can be seen. Reviewed by: Marcellus Jones MD on 10/14/2022 4:00 PM [place] Approved by: Marcellus Jones MD on 10/14/2022 4:00 PM [facility] Station ID: [id number]
--- NOTE | 2022-10-14 17:07 | ED Physician Documentation ---
PD HPI HEAD INJURY - Stated complaint Stated Complaint: FALL - Chief complaint Chief Complaint: Trauma Hd/Nk - History obtained from History obtained from: Patient, Family - History of Present Illness Mechanism of head injury: Fell Where head injury occurred: Other (parking lot) Timing - onset: How many hours ago (1) Pain level max: 4 Pain level now: 0 Location of injury: Front Quality of pain: Pain, Aching Associated symptoms: No: LOC, AMS, Amnesia, Nausea / vomiting, Neck pain, Paresthesias, Seizures, Ear drainage, Nasal drainage Recently seen: Not recently seen - Additional information Additional information: 77-year-old male status post ground-level fall in a parking lot today after dinner. He is on Eliquis. Had a headache initially but this is since resolved. No other injuries. No neck or back pain. No loss of consciousness. No seizure activity. No vomiting. Review of Systems Constitutional: denies: Fever, Chills GI: denies: Vomiting, Diarrhea Skin: denies: Rash Musculoskeletal: denies: Neck pain, Back pain Neurologic: denies: Confused, Altered mental status, LOC PD PAST MEDICAL HISTORY - Past Medical History Past Medical History: Yes Cardiovascular: Hypertension, High cholesterol, [place], Atrial fibrillation Respiratory: None Endocrine/Autoimmune: Type 2 diabetes GI: None : None HEENT: Macular degeneration Psych: None Derm: None - Past Surgical History Past Surgical History: Yes Ortho: Rotator cuff repair Cardiovascular: Coronary stent - Present Medications Home Medications: Ambulatory Orders Medication Instructions Recorded Confirmed Aspirin [Aspir 81] 81 mg PO DAILY 06/07/14 03/21/20 Insulin Glargine [Lantus] 0 units SUBQ DAILY 06/07/14 03/21/20 Olopatadine HCl [Patanol] 1 drops EACHEYE DAILY PRN 09/12/16 03/21/20 Atorvastatin [Lipitor] 80 mg PO QPM tablet 09/13/16 03/21/20 Nitroglycerin [Nitrostat] 0.4 mg SL Q5M PRN #0 tablet 09/13/16 03/21/20 Gabapentin [Neurontin] 200 mg PO TID 03/21/20 03/21/20 Losartan [Cozaar] 50 mg PO DAILY 03/21/20 03/21/20 Metformin HCl [Metformin HCl ER] 500 mg PO BID 03/21/20 03/21/20 Apixaban [Eliquis] 5 mg PO BID #60 tablet 03/22/20 Metoprolol Succinate 50 mg PO BID #60 tab.er.24h 03/22/20 - Allergies Allergies/Adverse Reactions: Allergies Allergy/AdvReac Type Severity Reaction Status Date / Time No Known Drug Allergies Allergy Verified 10/14/22 16:31 - Social History Does the pt smoke?: No Smoking Status: Never smoker Does the pt drink ETOH?: Yes Does the pt have substance abuse?: No - Immunizations Immunizations are current?: No Immunizations: TDAP current <10years - POLST Patient has POLST: No PD ED PE NORMAL - Vitals Vital signs reviewed: Yes - General General: Alert and oriented X 3, No acute distress - HEENT HEENT: PERRL, Moist mucous membranes, Other (Small abrasion to the left cheek. No bony tenderness. No facial tenderness. No scalp hematomas. No palpable skull fractures.) - Neck Neck: Supple, no meningeal sign, No bony TTP - Cardiac Cardiac: RRR, Strong equal pulses - Respiratory Respiratory: No respiratory distress, Clear bilaterally - Abdomen Abdomen: Soft, Non tender, Non distended - Back Back: No CVA TTP, No spinal TTP - Derm Derm: Warm and dry - Extremities Extremities: No deformity, No tenderness to palpate, Normal ROM s pain - Neuro Neuro: Alert and oriented X 3, manager lab 2-12 intact, No motor deficit, No sensory deficit, Normal speech Eye Opening: Spontaneous Motor: Obeys Commands Verbal: Oriented GCS Score: 15 - Psych Psych: Normal mood, Normal affect Results - Vitals Vitals: Vital Signs - 24 hr 10/14/22 16:28 Temperature 36.1 C L Heart Rate 60 Respiratory 16 Rate Blood Pressure 121/79 O2 Saturation 98 Oxygen O2 Source Room air - Labs Labs: Laboratory Tests 10/14/22 10/14/22 16:38 16:38 WBC 5.3 RBC 4.26 L Hgb 12.9 L Hct 40.4 L MCV 94.8 H MCH 30.3 MCHC 31.9 L RDW 13.4 Plt Count 154 MPV 9.8 Neut # (Auto) 3.0 Lymph # (Auto) 1.6 [place] # (Auto) 0.3 Eos # (Auto) 0.3 Baso # (Auto) 0.1 Absolute Nucleated RBC 0.00 Nucleated RBC % 0.0 Sodium 135 Potassium 4.0 Chloride 95 L Carbon Dioxide 29 Anion Gap 11.0 BUN 17 Creatinine 1.0 Estimated GFR (MDRD) 72 L Glucose 389 H Calcium 8.7 Total Bilirubin 1.3 H AST 24 ALT 19 Alkaline Phosphatase 82 Total Protein 6.8 Albumin 3.8 Globulin 3.0 Albumin/Globulin Ratio 1.3 - Rads (name of study) Head CT Relevant Findings:: Final report received, See rad report (No acute abnormality) PD Medical Decision Making - ED course Complexity details: reviewed results, re-evaluated patient, considered differential, d/w patient, d/w family ED course: Patient is on anticoagulants and had a ground-level fall in which he struck his head. Negative head CT. No acute findings on laboratory testing. CBC and chemistries do not have any significant abnormalities. Glucose is elevated at 389. He is diabetic. Patient is ambulating without difficulties. No focal neurological deficits. Patient and family counseled regarding signs and symptoms for which I believe and urgent re-evaluation would be necessary. Patient with good understanding of and agreement to plan and is comfortable going home at this time This document was made in part using voice recognition software. While efforts are made to proofread this document, sound alike and grammatical errors may occur. Departure - Departure Disposition: 01 Home, Self Care Clinical Impression: Hyperglycemia due to diabetes mellitus Closed head injury Qualifiers: Encounter type: initial encounter Qualified Code(s): S09.90XA - Unspecified injury of head, initial encounter Condition: Good Instructions: ED Hyperglycemia Diabetic, ED Head Injury Closed Follow-Up: Alan Rojo MD [Emergency Provider] - Comments: Please follow-up with your doctor as needed for further care. Please return if you worsen. Your head CT does not show any acute abnormalities today. Your glucose today was 389. Continue your diabetes medications at home. Discharge Date/Time: 10/14/22 17:40
[2022-10-14] MEDS ORDERED: BACITRACIN ZINC OINT 1 PACKET TOP STA (17:12)
== END 2022-10-14 17:40 | disposition home or self-care (01) ==
LOC: ED 16:22
DX: S09.90XA Unspecified injury of head, initial encounter (principal); S00.81XA Abrasion of other part of head, initial encounter; W01.0XXA Fall on same level from slipping, tripping and stumbling without subsequent striking against object, initial encounter; Y93.01 Activity, walking, marching and hiking; Y92.481 Parking lot as the place of occurrence of the external cause; E11.65 Type 2 diabetes mellitus with hyperglycemia; Z79.4 Long term (current) use of insulin; Z79.84 Long term (current) use of oral hypoglycemic drugs; Z79.01 Long term (current) use of anticoagulants
CPT/HCPCS: 36415; 80048; 80053; 85025; 99283; 99284

== ENCOUNTER 2023-02-07 15:54 | Outpatient (CLI) | payer MEDICARE, OTHER ==
[2023-02-07 16:29] LABS: EOSINOPHILS # (AUTO) 0.2 10^3/uL (0.0-0.7); HCT - HEMATOCRIT 37.6 % (42.0-52.0); HGB - HEMOGLOBIN 12.1 g/dL (14.0-18.0); LYMPHOCYTES # (AUTO) 1.7 10^3/uL (1.5-3.5); LYMPHOCYTES % (AUTO) 40.7 %; MEAN CORPUSCULAR HEMOGLOBIN 27.9 pg (27.0-31.0); MEAN CORPUSCULAR HGB CONC 32.2 g/dL (32.0-36.0); MEAN CORPUSCULAR VOLUME 86.8 fL (80.0-94.0); MEAN PLATELET VOLUME 9.8 fL (7.4-11.4); MONOCYTES # (AUTO) 0.2 10^3/uL (0.0-1.0); NEUTROPHILS % (AUTO) 48.1 %; PLT - PLATELET COUNT 116 10^3/uL (130-450); RED BLOOD COUNT 4.33 10^6/uL (4.70-6.10); RED CELL DISTRIBUTION WIDTH 16.1 % (12.0-15.0); WHITE BLOOD COUNT 4.2 x10^3/uL (4.8-10.8)
[2023-02-07 16:46] LABS: RHEUMATOID FACTOR POSITIVE (Negative)
[2023-02-07 16:50] LABS: ALBUMIN 3.8 g/dL (3.2-5.5); ALBUMIN/GLOBULIN RATIO 1.5 (1.0-2.2); BILIRUBIN,TOTAL 1.4 mg/dL (0.2-1.0); CALCIUM 8.3 mg/dL (8.5-10.3); CREATININE 0.8 mg/dL (0.6-1.3); CRP - C-REACTIVE PROTEIN 2.1 mg/dL (<0.5); POTASSIUM 4.4 mmol/L (3.5-4.5); TOTAL PROTEIN 6.4 g/dL (6.4-8.9)
[2023-02-07 17:18] LABS: THYROID STIMULATING HORMONE 5.57 uIU/mL (0.34-5.60)
[2023-02-08 18:07] LABS: ANTINUCLEAR ANTIBODIES IFA Negative (.)
[2023-02-08 20:08] LABS: CYCLIC CITRULLINATED PEP IGG/A 2 units (0-19)
== END 2023-02-07 15:55 | disposition home or self-care (01) ==
LOC: LAB 15:54
PROVIDERS: ATTEND Family Medicine
DX: R60.0 Localized edema (principal); R23.4 Changes in skin texture; M65.841 Other synovitis and tenosynovitis, right hand; L97.822 Non-pressure chronic ulcer of other part of left lower leg with fat layer exposed; M62.81 Muscle weakness (generalized)
CPT/HCPCS: 36415; 80053; 82550; 83036; 83880; 84134; 84443; 85025; 85651; 86038; 86140; 86200; 86430

== ENCOUNTER 2023-02-12 16:27 | Outpatient (CLI) | payer MEDICARE, OTHER | END 2023-02-12 16:28 | disposition EMS.NT | LOC: EMS 16:27 | DX: M79.662 Pain in left lower leg (principal); L89.899 Pressure ulcer of other site, unspecified stage ==

== ENCOUNTER 2023-02-12 17:18 | Emergency (ER) | payer MEDICARE, OTHER ==
--- NOTE | 2023-02-12 17:40 | ED Physician Documentation ---
History of Present Illness - Stated complaint Stated Complaint: LT LEG PX - Chief complaint Chief Complaint: Ext Problem - Additonal information Additional information: 77-year-old male who has a past medical history most significant for coronary artery disease status post stenting, previous CVA, A-fib (anticoagulated on eliquis), hyperlipidemia, hypertension and neuropathy with a known seizure disorder presents the emergency department for evaluation of worsening pain in the left leg near the site of a nonpressure ulceration. Currently be seeing by Dr. Ricco durbin. He appears to have his wounds dressed in a clear colloidal dressing. His reports that over the last 2 to 3 days he has been reporting increasing pain but no fevers. She is also reporting there is a large amount of serous drainage. Review of Systems Constitutional: denies: Fever, Chills Skin: reports: Lesions PD PAST MEDICAL HISTORY - Past Medical History Cardiovascular: Hypertension, High cholesterol, [place], Atrial fibrillation Respiratory: None Endocrine/Autoimmune: Type 2 diabetes GI: None : None HEENT: Macular degeneration Psych: None Derm: None - Past Surgical History Past Surgical History: Yes Ortho: Rotator cuff repair Cardiovascular: Coronary stent - Present Medications Home Medications: Ambulatory Orders Medication Instructions Recorded Confirmed Aspirin [Aspir 81] 81 mg PO DAILY 06/07/14 01/23/23 Atorvastatin [Lipitor] 80 mg PO QPM tablet 09/13/16 01/23/23 Gabapentin [Neurontin] 200 mg PO BID 03/21/20 01/23/23 Losartan [Cozaar] 25 mg PO DAILY 03/21/20 01/23/23 Metformin HCl [Metformin HCl ER] 1,000 mg PO BID 03/21/20 01/23/23 Apixaban [Eliquis] 5 mg PO BID #60 tablet 03/22/20 01/23/23 Ergocalciferol (Vitamin D2) 1,250 mcg PO ONCE 01/23/23 01/23/23 [Drisdol] Levetiracetam [Keppra Xr] 1,500 mg PO BID 01/23/23 01/23/23 Metoprolol Succinate 50 mg PO DAILY 01/23/23 01/23/23 [place]-3S/Dha/Epa/Fish Oil [Fish 1 each PO BID 01/23/23 01/23/23 Oil 1,200 mg Softgel] levoFLOXacin [Levofloxacin] 500 mg PO DAILY 10 Days #10 tablet 01/24/23 cephALEXin [Keflex] 500 mg PO TID #21 cap 02/12/23 oxyCODONE [Roxicodone] 5 mg PO TID PRN #10 tablet 02/12/23 - Allergies Allergies/Adverse Reactions: Allergies Allergy/AdvReac Type Severity Reaction Status Date / Time No Known Drug Allergies Allergy Verified 02/12/23 17:21 - Social History Does the pt smoke?: No Smoking Status: Never smoker Does the pt drink ETOH?: Yes Does the pt have substance abuse?: No - Immunizations Immunizations are current?: No Immunizations: TDAP current <10years - POLST Patient has POLST: No PD ED PE NORMAL - General General: Alert and oriented X 3, No acute distress. No: Well developed/nourished (Thin cachectic appearance) - Cardiac Cardiac: No: RRR (Irregularly irregular. Atrial fib on the monitor) - Respiratory Respiratory: No respiratory distress, Clear bilaterally - Abdomen Abdomen: Normal bowel sounds, Soft, Non tender - Back Back: No CVA TTP - Derm Derm: Normal color, Warm and dry, No rash - Extremities Extremities: No deformity - Neuro Neuro: Alert and oriented X 3, commercial accountant 2-12 intact Eye Opening: Spontaneous Motor: Obeys Commands Verbal: Oriented GCS Score: 15 Results - Vitals Vitals: Vital Signs - 24 hr 02/12/23 02/12/23 17:21 19:32 Temperature 36 C L Heart Rate 79 81 Respiratory 16 18 Rate Blood Pressure 136/66 H 136/85 H O2 Saturation 99 98 Oxygen O2 Source Room air - Labs Labs: Laboratory Tests 02/12/23 02/12/23 02/12/23 18:02 18:02 18:02 WBC 4.3 L RBC 4.25 L Hgb 11.9 L Hct 37.9 L MCV 89.2 MCH 28.0 MCHC 31.4 L RDW 16.3 H Plt Count 133 MPV 10.4 Neut # (Auto) 2.0 Lymph # (Auto) 1.7 [place] # (Auto) 0.2 Eos # (Auto) 0.3 Baso # (Auto) 0.1 Absolute Nucleated RBC 0.00 Nucleated RBC % 0.0 PT 18.2 H INR 1.7 H Sodium 137 Potassium 3.7 Chloride 97 L Carbon Dioxide 31 Anion Gap 9.0 BUN 7 Creatinine 0.6 Estimated GFR (MDRD) 130 Glucose 187 H Calcium 8.6 Total Bilirubin 1.5 H AST 23 ALT 10 Alkaline Phosphatase 115 Total Protein 6.7 Albumin 4.0 Globulin 2.7 Albumin/Globulin Ratio 1.5 Lipase 20 - Rads (name of study) left leg US DVT Relevant Findings:: Final report received (Negative for deep vein thrombosis) left leg arterial US Relevant Findings:: Final report received (Significant arterial plaque throughout but no occlusion.) PD Medical Decision Making - ED course Complexity details: reviewed results, re-evaluated patient, considered differential, d/w patient, d/w family ED course: 77-year-old male who has significant past medical history including coronary artery disease, A-fib, anticoagulation and diabetes presents to the emergency department for worsening pain in the left lower medial ankle region at the site where he has a nonpressure ulceration. Currently being followed by the [facility] clinic. His reports that over the last several days there has been increased amount in the serous drainage from this wound. Patient is scheduled to see Dr. Coughlin on . I have reviewed the previous wound clinic notes and it does indicate the patient had an DAWNA completed January 22 which was normal in the left leg. Today on exam this patient has swollen bilateral lower extremities. The ulcerations along the medial and anterior leg are covered in a clear colloidal dressing. The medial ankle is draining serous fluid and is tender to touch. A palpable pulse was not present though it was dopplerable, monophasic at the bedside. We did obtain initial CBC and electrolytes today in the emergency department. He had no leukocytosis. Hemoglobin was 11.9 mildly down from recent. Electrolytes showed no worrisome abnormality sparing some hyperglycemia as expected in the setting of diabetes. As such I suspect that the cause of the increased pain as well as increased serous weeping from the wounds may be early infection. He will be started on Keflex. Patient is scheduled to see wound clinic in 2 days time. I discussed with patient and his the usual emergent return precautions for failure symptoms to resolve. Departure - Departure Disposition: Home, Self Care Clinical Impression: Left leg pain Leg ulcer, left Qualifiers: Non-pressure ulcer stage: unspecified non-pressure ulcer stage Qualified Code(s): L97.929 - Non-pressure chronic ulcer of unspecified part of left lower leg with unspecified severity Condition: Stable Record reviewed to determine appropriate education?: Yes Prescriptions: cephALEXin [Keflex] 500 mg PO TID #21 cap oxyCODONE [Roxicodone] 5 mg PO TID PRN #10 tablet PRN Reason: Pain Comments: You came to the emergency department today because you have been having increasing pain near the ankle of your left leg where you have an ulcer. It is also begun to weep more serous fluid over the last several days. Your labs today did not show any worrisome findings. An ultrasound of the leg showed no blood clots. An arterial ultrasound also showed no stenosis or lack of flow to the leg though you do have fairly significant arterial plaque and calcifications. Please continue to follow-up with Dr. Ricco Hunter for further management of your wounds. In the short-term I am starting you on cephalexin and antibiotic as the weeping may indicate infection. Dr. Yang can determine if he wants to keep you on it when you see him on . Return to the ER for any new or worsening symptoms Forms: PCP List
[2023-02-12] MEDS ORDERED: oxyCODONE 5 MG TABLET PO STA (17:44)
[2023-02-12 18:17] LABS: BASOPHILS # (AUTO) 0.1 10^3/uL (0.0-0.1); BASOPHILS % (AUTO) 1.6 %; EOSINOPHILS # (AUTO) 0.3 10^3/uL (0.0-0.7); EOSINOPHILS % (AUTO) 7.3 %; HCT - HEMATOCRIT 37.9 % (42.0-52.0); HGB - HEMOGLOBIN 11.9 g/dL (14.0-18.0); LYMPHOCYTES # (AUTO) 1.7 10^3/uL (1.5-3.5); LYMPHOCYTES % (AUTO) 39.1 %; MEAN CORPUSCULAR HGB CONC 31.4 g/dL (32.0-36.0); MEAN CORPUSCULAR VOLUME 89.2 fL (80.0-94.0); MEAN PLATELET VOLUME 10.4 fL (7.4-11.4); MONOCYTES # (AUTO) 0.2 10^3/uL (0.0-1.0); MONOCYTES % (AUTO) 4.2 %; NEUTROPHILS % (AUTO) 47.6 %; PLT - PLATELET COUNT 133 10^3/uL (130-450); RED BLOOD COUNT 4.25 10^6/uL (4.70-6.10); RED CELL DISTRIBUTION WIDTH 16.3 % (12.0-15.0); WHITE BLOOD COUNT 4.3 x10^3/uL (4.8-10.8)
[2023-02-12 18:24] LABS: INR 1.7 (0.8-1.2); PT - PROTHROMBIN TIME 18.2 secs (9.9-12.6)
[2023-02-12 18:30] LABS: ALBUMIN/GLOBULIN RATIO 1.5 (1.0-2.2); BILIRUBIN,TOTAL 1.5 mg/dL (0.2-1.0); CALCIUM 8.6 mg/dL (8.5-10.3); CREATININE 0.6 mg/dL (0.6-1.3); POTASSIUM 3.7 mmol/L (3.5-4.5); TOTAL PROTEIN 6.7 g/dL (6.4-8.9)
[2023-02-12] MEDS ORDERED: cephALEXin 250 MG CAPSULE PO STA (20:31)
--- NOTE | 2023-02-12 20:47 | Ultrasound Report ---
PROCEDURE: Duplex Ext Veins Left INDICATIONS: pain/swelling; r/o DVT TECHNIQUE: Real-time imaging, as well as color and pulse Doppler interrogation, were performed of the lower extr emity deep veins from the inguinal ligament to the popliteal fossa. Attempted visualization of the ca lf veins was performed. COMPARISON: None. FINDINGS: The deep veins are normally compressible, and free of intraluminal thrombus. Color and pu lse Doppler demonstrate normal phasic intraluminal flow. There is normal augmentation response to di stal compression maneuver. IMPRESSION: No deep venous thrombosis of the visualized lower extremity. Reviewed by: Rl Bird on 02/12/2023 8:45 PM PDT Approved by: Rl Bird on 02/12/2023 8:45 PM PDT Station ID: [id number]
--- NOTE | 2023-02-12 20:48 | Ultrasound Report ---
PROCEDURE: Duplex Lwr Ext Arterial LT INDICATIONS: increasing pain; ? decreased pulses TECHNIQUE: Color and pulse Doppler interrogation was performed of the left lower extremity arterial system, with image documentation. COMPARISON: None FINDINGS: Common femoral artery: 72 cm/sec, with triphasic flow. Deep femoral artery: 44 cm/sec, with triphasic flow. Proximal superficial femoral artery: 60 cm/sec, with triphasic flow. Mid superficial femoral artery: 87 cm/sec, with triphasic flow. Distal superficial femoral artery: 59 cm/sec, with triphasic flow. Popliteal artery: 42 cm/sec, with triphasic flow. Posterior tibial artery: 30 cm/sec, with triphasic flow. Anterior tibial artery/dorsalis pedis: 44/100 cm/sec, with triphasic flow. Gallo-scale imaging description: Diffuse atherosclerotic plaque. IMPRESSION: Patent left lower extremity arteries, without hemodynamically significant stenosis. Triphasic wavefor ms throughout the extremity. Reviewed by: Rl Bird on 02/12/2023 8:47 PM PDT Approved by: Rl Bird on 02/12/2023 8:47 PM PDT Station ID: [id number]
[2023-02-12 22:08] VITALS: BP 137/87; O2SAT 98
== END 2023-02-12 22:07 | disposition home or self-care (01) ==
LOC: ED 17:18
DX: L97.229 Non-pressure chronic ulcer of left calf with unspecified severity (principal); I25.10 Atherosclerotic heart disease of native coronary artery without angina pectoris; I48.91 Unspecified atrial fibrillation; I10 Essential (primary) hypertension; E11.40 Type 2 diabetes mellitus with diabetic neuropathy, unspecified; E78.00 Pure hypercholesterolemia, unspecified; Z86.73 Personal history of transient ischemic attack (TIA), and cerebral infarction without residual deficits; Z79.01 Long term (current) use of anticoagulants; Z79.82 Long term (current) use of aspirin; Z79.899 Other long term (current) drug therapy; Z79.84 Long term (current) use of oral hypoglycemic drugs
CPT/HCPCS: 36415; 80053; 83690; 85025; 85610; 93926; 93971; 99284; A9270

== ENCOUNTER 2023-02-19 11:07 | Outpatient (CLI) | payer MEDICARE, OTHER | END 2023-02-19 23:59 | disposition critical access hospital (66) | LOC: EMS 11:07 | DX: R53.1 Weakness (principal); R60.0 Localized edema | CPT/HCPCS: A0425; A0427 ==

== ENCOUNTER 2023-02-19 11:24 | Inpatient (IN) | payer MEDICARE, OTHER ==
[2023-02-19] MEDS ORDERED: FUROSEMIDE 40 MG/4 ML VIAL IVP STA (12:05)
[2023-02-19] MEDS ORDERED: METOPROLOL 5 MG/5 ML VIAL IVP STA (12:05)
--- NOTE | 2023-02-19 12:10 | ED Physician Documentation ---
History of Present Illness - Stated complaint Stated Complaint: WEAKNESS - Chief complaint Chief Complaint: General - History obtained from History obtained from: Family - Additonal information Additional information: 77-year-old gentleman presents accompanied by for the evaluation of generalized weakness and weight gain. He has a history of atrial fibrillation diagnosed when he developed COVID in March 2020. At that time echocardiogram showing mild concentric LVH, EF 35 to 40%, moderate MR, mild to moderate TR, mild to moderate abnormal right heart pressures. He also has a history of coronary disease with a couple of stents. Over the last couple of months has had approximately 20 pound weight gain with generalized weakness culminating in some falls without injuries. Has not taken his last 2 doses of home medications which include levetiracetam, gabapentin, metformin, Eliquis, metoprolol, aspirin, atorvastatin, losartan, and donepezil. Patient has no complaints and specifically denies any pain or chest pain. Most of the history is from the because of his cognitive issues. PD PAST MEDICAL HISTORY - Past Medical History Cardiovascular: Hypertension, High cholesterol, [place], Atrial fibrillation Respiratory: None Endocrine/Autoimmune: Type 2 diabetes GI: None : None HEENT: Macular degeneration Psych: None Derm: None - Past Surgical History Past Surgical History: Yes Ortho: Rotator cuff repair Cardiovascular: Coronary stent - Present Medications Home Medications: Ambulatory Orders Medication Instructions Recorded Confirmed Aspirin [Aspir 81] 81 mg PO DAILY 06/07/14 02/19/23 Atorvastatin [Lipitor] 80 mg PO QPM tablet 09/13/16 02/19/23 Gabapentin [Neurontin] 200 mg PO BID 03/21/20 02/19/23 Losartan [Cozaar] 25 mg PO DAILY 03/21/20 02/19/23 Metformin HCl [Metformin HCl ER] 1,000 mg PO BID 03/21/20 02/19/23 Apixaban [Eliquis] 5 mg PO BID #60 tablet 03/22/20 02/19/23 Ergocalciferol (Vitamin D2) 1,250 mcg PO Q7D 01/23/23 02/19/23 [Drisdol] Levetiracetam [Keppra Xr] 1,500 mg PO BID 01/23/23 02/19/23 Metoprolol Succinate 50 mg PO DAILY 01/23/23 02/19/23 [place]-3S/Dha/Epa/Fish Oil [Fish 1 each PO BID 01/23/23 02/19/23 Oil 1,200 mg Softgel] oxyCODONE [Roxicodone] 5 mg PO TID PRN #10 tablet 02/12/23 02/19/23 Donepezil HCl [Aricept] 20 mg PO DAILY PM 02/19/23 02/19/23 - Allergies Allergies/Adverse Reactions: Allergies Allergy/AdvReac Type Severity Reaction Status Date / Time No Known Drug Allergies Allergy Verified 02/12/23 17:21 - Social History Does the pt smoke?: No Smoking Status: Never smoker Does the pt drink ETOH?: Yes Does the pt have substance abuse?: No - Immunizations Immunizations are current?: No Immunizations: TDAP current <10years - POLST Patient has POLST: No PD ED PE NORMAL - Vitals Vital signs reviewed: Yes (A-fib with RVR on the monitor rates in the 140s) - General General: Other (Confused but cooperative) - HEENT HEENT: PERRL, EOMI, Moist mucous membranes - Neck Neck: Supple, no meningeal sign, No bony TTP - Cardiac Cardiac: Other (Rapid and irregular without murmur. Bedside echo showing no pericardial effusion but poor EF.) - Respiratory Respiratory: Other (Diminished both bases, nonlabored) - Abdomen Abdomen: Non tender (,) - Extremities Extremities: Other (1+ pitting pedal edema with some wounds) Results - Vitals Vitals: Vital Signs - 24 hr 02/19/23 02/19/23 02/19/23 11:27 12:35 12:47 Temperature 36.5 C Heart Rate 64 126 H 106 H Respiratory 16 12 16 Rate Blood Pressure 117/97 H 126/84 H 108/76 O2 Saturation 96 96 100 02/19/23 14:06 Temperature Heart Rate 105 H Respiratory 20 Rate Blood Pressure 126/88 H O2 Saturation 100 Oxygen O2 Source Room air - EKG (time done) 1149 EKG releavant findings:: EKG personally interpreted by author of this note. Relevant findings are: Rate: Rate (enter#) (140) Rhythm: Atrial fibrillation Intervals: Prolonged QT Ischemia: ST depression. No: ST elevation c/w ischemia - Labs Labs: Laboratory Tests 02/19/23 02/19/23 02/19/23 11:37 12:17 12:17 WBC 4.6 L RBC 3.96 L Hgb 11.2 L Hct 34.2 L MCV 86.4 MCH 28.3 MCHC 32.7 RDW 17.3 H Plt Count 109 L MPV 9.8 Neut # (Auto) 2.2 Lymph # (Auto) 1.9 [place] # (Auto) 0.3 Eos # (Auto) 0.2 Baso # (Auto) 0.1 Absolute Nucleated RBC 0.00 Nucleated RBC % 0.0 Sodium 134 L Potassium 4.1 Chloride 94 L Carbon Dioxide 33 H Anion Gap 7.0 BUN 14 Creatinine 0.7 Estimated GFR (MDRD) 109 Glucose 243 H POC Whole Bld Glucose 262 H Calcium 9.1 Magnesium 1.2 L Total Bilirubin 2.6 H AST 83 H ALT 35 Alkaline Phosphatase 215 H Troponin I High Sens 13.1 B-Natriuretic Peptide 1227 H Total Protein 6.2 L Albumin 3.8 Globulin 2.4 Albumin/Globulin Ratio 1.6 - Rads (name of study) Single view chest x-ray showing right basilar atelectasis versus infiltrate with small bilateral pleural effusions. Relevant Findings:: Final report received, EMP independent interpretation of test PD Medical Decision Making - ED course Complexity details: reviewed results (CBC showing mild pancytopenia, close to prior indices from prior labs. Chemistry panel showing modest hyperglycemia, his bilirubin is up which I suspect is congestive hepatopathy and his BNP is 1227 with negative troponin.) ED course: 77-year-old gentleman with history of A-fib presents with 20 pound weight gain, shortness of breath, generalized weakness and is noted to be in A-fib with RVR. After initial evaluation he was administered 40 mg of IV Lasix and 5 mg of IV metoprolol with rates coming down towards 105. I had done a bedside echo, which showed severely depressed EF so we did a formal echo and preliminary read from the diesel engine specialist was EF of 20% with cor pulmonale and right ventricular pressures in the 60s. Case discussed by phone with Dr. Vásquez at 2:[address] in observation for diuresis. Departure - Departure Disposition: ED Place in Observation Clinical Impression: Atrial fibrillation with RVR, Cor pulmonale, Congestive heart failure, Open leg wound Condition: Serious Forms: PCP List
[2023-02-19 12:22] LABS: BASOPHILS # (AUTO) 0.1 10^3/uL (0.0-0.1); BASOPHILS % (AUTO) 1.1 %; EOSINOPHILS # (AUTO) 0.2 10^3/uL (0.0-0.7); EOSINOPHILS % (AUTO) 3.3 %; HCT - HEMATOCRIT 34.2 % (42.0-52.0); HGB - HEMOGLOBIN 11.2 g/dL (14.0-18.0); LYMPHOCYTES # (AUTO) 1.9 10^3/uL (1.5-3.5); LYMPHOCYTES % (AUTO) 40.8 %; MEAN CORPUSCULAR HEMOGLOBIN 28.3 pg (27.0-31.0); MEAN CORPUSCULAR HGB CONC 32.7 g/dL (32.0-36.0); MEAN CORPUSCULAR VOLUME 86.4 fL (80.0-94.0); MEAN PLATELET VOLUME 9.8 fL (7.4-11.4); MONOCYTES # (AUTO) 0.3 10^3/uL (0.0-1.0); MONOCYTES % (AUTO) 6.3 %; NEUTROPHILS # (AUTO) 2.2 10^3/uL (1.5-6.6); NEUTROPHILS % (AUTO) 48.3 %; PLT - PLATELET COUNT 109 10^3/uL (130-450); RED BLOOD COUNT 3.96 10^6/uL (4.70-6.10); RED CELL DISTRIBUTION WIDTH 17.3 % (12.0-15.0); WHITE BLOOD COUNT 4.6 x10^3/uL (4.8-10.8)
--- NOTE | 2023-02-19 12:33 | XRAY Report ---
PROCEDURE: Chest 1 View X-Ray INDICATIONS: chf TECHNIQUE: One view of the chest was acquired. COMPARISON: 03/21/2020 FINDINGS: Surgical changes and devices: None. Lungs and pleura: Elevation of the right hemidiaphragm with right basilar atelectasis versus infiltr ate. Blunting of the costophrenic angles bilaterally consistent with small pleural effusions. No foca l consolidation. Mediastinum: Mediastinal contours appear normal. Heart size is normal. Bones and chest wall: No suspicious bony lesions. Overlying soft tissues appear unremarkable. IMPRESSION: 1. Right basilar atelectasis versus infiltrate. 2. Blunting of the costophrenic angles bilaterally consistent with small pleural effusions. Reviewed by: Liu Raza on 02/19/2023 12:32 PM PDT Approved by: Liu Raza on 02/19/2023 12:32 PM PDT Station ID: [id number]
[2023-02-19 12:36] LABS: ALBUMIN 3.8 g/dL (3.2-5.5); ALBUMIN/GLOBULIN RATIO 1.6 (1.0-2.2); BILIRUBIN,TOTAL 2.6 mg/dL (0.2-1.0); CALCIUM 9.1 mg/dL (8.5-10.3); CREATININE 0.7 mg/dL (0.6-1.3); MAGNESIUM 1.2 mg/dL (1.7-2.3); POTASSIUM 4.1 mmol/L (3.5-4.5); TOTAL PROTEIN 6.2 g/dL (6.4-8.9)
[2023-02-19 12:44] LABS: TROPONIN I HIGH SENSITIVITY 13.1 ng/L (2.3-19.7)
[2023-02-19] MEDS ORDERED: ACETAMINOPHEN 500 MG TABLET PO STA (16:25)
[2023-02-19] MEDS ORDERED: SODIUM CHLORIDE FLUSH 0.9% 10 ML SYRINGE IVP PRN (16:28)
[2023-02-19] MEDS ORDERED: ACETAMINOPHEN 325 MG TABLET PO PRN (16:28)
--- NOTE | 2023-02-19 17:23 | HISTORY & PHYSICAL EXAMINATION ---
Chief Complaint - Chief Complaint Chief Complaint: Weakness, several falls at home History of Present Illness - Admitted From Admitted From:: ED - History Obtained From History obtained from: ED provider and chart review - History of Present Illness HPI Comment/Other: This is a 77-year-old male who has a history of dementia, chronic atrial fibrillation, is on a DOAC, he had been admitted here in 2019 for A-fib with RVR and was found to have EF of 35 to 40% with pulmonary hypertension. He told us then that he had stopped all his medicines "for several days when he found out he was COVID-positive, from the shock of it". At discharge, he was advised to have a Advance Agent as an outpatient. He has never gone to see a Advance Agent over those 3 years, but was about to establish with a new chute tapper today, at an office visit w/ Dr Laguna. The patient never went to that Cardiology appointment today because he has fallen at home twice over the last several days, and he presented to our emergency room. The gave all the information, due to his dementia and describe weakness, several falls which she thought was from his weakness, described that he is more forgetful, and reported a 20 pound weight gain. He has chronic wounds on his legs that are being treated. In the ER he had he was found to be in A-fib at a rate of 150 and room air O2 saturation was 90%. Troponin was normal, BNP 1227. He received IV metoprolol and heart rate dropped to 105 in A-fib. A bedside echo was done in the ER showing that his LVEF is now 10 to 20% with moderate to severe pulm hypertension PA pressure 65 mmHg. The ED provider spoke to me about this patient. He will be placed in observation for diuresis and achieving better rate control of his RVR. At the last admission in 2019, the patient wants to be a full code. Today I discussed CODE BLUE with his (see separate ACP note) and he will be changed to a DNR/DNI. History - Past Medical History Cardiovascular: reports: Hypertension, High cholesterol, [place], Atrial fibrillation Respiratory: reports: None Neuro: reports: Dementia, Seizure disorder Endocrine/Autoimmune: reports: Type 2 diabetes GI: reports: None : reports: None HEENT: reports: Macular degeneration Psych: reports: None Derm: reports: None MRSA Hx?: No - Past Surgical History Ortho: reports: Rotator cuff repair Cardiovascular: reports: Coronary stent - Family & Social History Family History Comment/Other: Father had prostate cancer and his mother had a stroke. He reports no other family history. Both of his parents are . He still has one living brother. Social History Notes: Lives at home with his . He was previously in the [employer] but retired in 1988. He is a non-smoker and does not drink alcohol. - POLST Patient has POLST: Yes POLST Status: DNR Meds/Allgy - Home Medications Home Medications: Ambulatory Orders Medication Instructions Recorded Confirmed Aspirin [Aspir 81] 81 mg PO DAILY 06/07/14 02/19/23 Atorvastatin [Lipitor] 80 mg PO QPM tablet 09/13/16 02/19/23 Gabapentin [Neurontin] 200 mg PO BID 03/21/20 02/19/23 Losartan [Cozaar] 25 mg PO DAILY 03/21/20 02/19/23 Metformin HCl [Metformin HCl ER] 1,000 mg PO BID 03/21/20 02/19/23 Apixaban [Eliquis] 5 mg PO BID #60 tablet 03/22/20 02/19/23 Ergocalciferol (Vitamin D2) 1,250 mcg PO Q7D 01/23/23 02/19/23 [Drisdol] Levetiracetam [Keppra Xr] 1,500 mg PO BID 01/23/23 02/19/23 Metoprolol Succinate 50 mg PO DAILY 01/23/23 02/19/23 [place]-3S/Dha/Epa/Fish Oil [Fish 1 each PO BID 01/23/23 02/19/23 Oil 1,200 mg Softgel] oxyCODONE [Roxicodone] 5 mg PO TID PRN #10 tablet 02/12/23 02/19/23 Donepezil HCl [Aricept] 20 mg PO DAILY PM 02/19/23 02/19/23 - Allergies Allergies/Adverse Reactions: Allergies Allergy/AdvReac Type Severity Reaction Status Date / Time No Known Drug Allergies Allergy Verified 02/12/23 17:21 Review of Systems - Constitutional Constitutional: reports: Fatigue, Weakness (Sleeps all day for the last 3 to 4 days), Poor appetite - Cardiovascular Cariovascular: reports: Decr. exercise tolerance - Respiratory Respiratory: reports: SOB with exertion - Gastrointestinal Gastrointestinal: reports: Poor appetite - Neurological Neurological: reports: General weakness, Incoordination - All Other Systems All Other Systems: reports: Reviewed and negative ( gave all details of sx in this ROS) Exam - Vital Signs Reviewed Vital Signs: Yes Vital Signs: Vital Signs x48h Temp Pulse Resp BP Pulse Ox 02/19/23 16:47 118 H 14 122/89 H 100 02/19/23 14:06 105 H 20 126/88 H 100 02/19/23 12:47 106 H 16 108/76 100 02/19/23 12:35 126 H 12 126/84 H 96 02/19/23 11:27 36.5 C 64 16 117/97 H 96 - Physical Exam General Appearance: positive: No acute distress, Lethargic (Awakens and answers appropriately,, falls asleep when not being spoken to), Other (Tall frail elderly man, sleeping in bed supine) Eyes Bilateral: positive: Normal inspection, No lid inflammation ENT: positive: ENT inspection nml, No signs of dehydration Neck: positive: Nml inspection, Other ((+) JVD) Respiratory: positive: Other (Diminished breath soinds at both bases, poor air mvm other lung firlds) Conclusion/Plan - Problem List (1) Atrial fibrillation with RVR Conclusion/Plan: The admitted that he has stopped being compliant with his medications, he usually takes the morning dose but has been refusing the evening dose or refusing both doses in the day Plan: We will give additional meds for rate control We will resume his usual p.o. meds for rate control Continue with his DOAC, unless freq falls show that resumption is too risky (2) Acute on chronic systolic heart failure Conclusion/Plan: As in #1, noncompliance with his medications and management is the most likely cause for rapid heart rate, Which in turn has led to the heart failure exacerbation An echo was done at presentation in the ER and his EF is less than 20%. Plan: Start IV twice daily diuretics. Follow daily weights, I's and O's, BUN/creatinine, electrolytes and magnesium, replace if low Await his reconciled medication list to restart his usual meds for systolic heart failure (3) Fall at home Conclusion/Plan: The gives a description of him slowly worsening with weakness over the past 3 to 4 months. He had a fall a month ago when he walked on uneven terrain outside, was seen in an ER and checked out okay. He then had a fall several weeks ago when he over reached, had no trauma and he did not seek medical atte ntion. 4 days ago the found him on the floor and did not see his fall. Last night the patient almost fell when using his walker, he landed against the wall and did not fully drop to the ground, she secured him and had him sit on the seat on his walker Plan: PT and OT evaluation Orthostatic vital signs will be checked (4) Open wound of both legs with complication Conclusion/Plan: Patient goes to the [facility] wound clinic every week on . He gets wrapping of both shins. Most recent findings were 2 blisters of the right lower leg which were both drained and a chronic left mckeon wound that gets wrapped and causes him pain. Plan: Continue with wrapping weekly and MAC wound follow-up Continue with pain meds as needed (5) Diabetes mellitus Conclusion/Plan: Plan: Order diabetic diet We will order fingerstick checks, sliding scale coverage, hypoglycemia protocol Await medication list to be reconciled to start appropriate diabetic meds (6) Generalized weakness Conclusion/Plan: The gives a description of him slowly worsening with weakness over the past 3 to 4 months. The patient now sleeps most of the day for the past 4 days. His ambulation is very poor, he uses a walker wherever he goes. Despite the walker, he has had 2 falls a month ago and 2 falls in the last 4 days Plan: Orthostatic vital sign checks PT and OT evaluations If he qualifies he would benefit from rehab at a SNF (7) Dementia Conclusion/Plan: Plan: We will resume his donepezil - Lab Results Fish Bones: 02/19/23 12:17 02/19/23 12:17 - Diagnostic Imaging Results Diagnostic Imaging Results: positive: Final report reviewed
[2023-02-19] MEDS: SODIUM CHLORIDE FLUSH 0.9% 10 ML SYRINGE IVP SCH (18:18)
--- NOTE | 2023-02-19 19:23 | ADVANCE CARE PLANNING NOTE ---
Advance Care Planning - Planning Encounter Date: 02/19/23 Time: 18:00 Purpose: To address the patient's CODE STATUS Parties in Attendance: I spoke to the , Rebekah at the bedside and then with her outside the patient's room. Decisional Capacity of the Patient: Patient has dementia on donepezil. Intermittently he appears to give the right answers and make proper decisions but mostly he will forget what was recently discussed. Therefore I am requesting that his spouse speak on his behalf regarding his CODE BLUE status. - Diagnosis for Encounter (1) Acute on chronic systolic heart failure Summary: The patient has a known EF of 30% from [facility] in 2019. Today a new Echo was done showing an EF of 10%. The patient's severe weakness, poor appetite and dyspnea are likely related to this. The prognosis is very poor with such as severely depressed EF. - Encounter Subjective/Patient's Story: The patient has A-fib with RVR and CHF. He presented with A-fib with RVR in 2019, when he had COVID, and an Echo then showed an EF of 30%. The patient was told to get a Reacher, but he was only about to start seeing a Reacher now for the first time. He missed that appointment because he got admitted here. He has not been compliant with his medications because he is so weak that he either sleeps through them or just refuses them in general. He has been more sleepy and weaker for 3 to 4 months, especially worse over the last 1 week. He has had several falls, 2 were 1 month ago, 2 were in the last 4 days. Objective/Medical Story: This patient has dementia, on donepizil, but he is up and down regarding what he can remember. He has a history of A-fib and is on Eliquis, history of CHF and is on appropriate meds according to his reconciled med list. He presents with CHF and weakness, pulmonary edema on chest x-ray but he is not hypoxic, and he has A-fib with RVR. An Echo was done at presentation (in the ER) and the EF is 10 to 20%. I suspect this worsened EF is from RVR that has probably been uncontrolled for many weeks, given the history of him not taking his medicines. Goals of Care: Patient's Rebekah does not want him to suffer or be in pain which he might endure if he has CPR and gets broken ribs and recovers. She stated that "this is a decision for me". She said he already would not want to be on a breathing machine for support and then said she realizes that he has no quality of life and wants him to have a natural . Plan: The says she wants him to be comfortable. The first said that he himself would not to be on a respirator but would want CPR and defibrillation. However, she does not want him to suffer through broken ribs that would need to be healed if he has CPR. She then commented that he has a very poor quality of life, because of his dementia and his weakness, he mostly sleeps all day. The first said she would speak to the children to decide, then said "this is the spouse's decision" and said she would therefore like to make him a DNR/DNI and let nature take it's course. Additional Discussion: A POLST form was filled out at the present time. Code Status: Do Not Attempt Resuscitation Time spent on advance care plannin
[2023-02-19] MEDS: DONEPEZIL 5 MG TABLET PO SCH (20:35)
[2023-02-19] MEDS: APIXABAN 5 MG TABLET PO SCH (20:35)
[2023-02-19] MEDS: GABAPENTIN 100 MG CAPSULE PO SCH (20:35)
[2023-02-19] MEDS: METOPROLOL SUCCINATE 50 MG TABLET PO SCH (20:35)
[2023-02-19] MEDS ORDERED: LEVETIRACETAM 750 MG PO SCH (21:00)
[2023-02-20] MEDS: SODIUM CHLORIDE FLUSH 0.9% 10 ML SYRINGE IVP SCH ×3 (05:09→17:13)
[2023-02-20] MEDS: GABAPENTIN 100 MG CAPSULE PO SCH ×2 (08:33→21:14)
[2023-02-20] MEDS: METOPROLOL SUCCINATE 50 MG TABLET PO SCH ×2 (08:33→21:14)
[2023-02-20] MEDS: APIXABAN 5 MG TABLET PO SCH ×2 (08:33→21:14)
[2023-02-20] MEDS: ASPIRIN EC 81 MG TABLET PO SCH (08:34)
[2023-02-20] MEDS: polyethylene glycoL 3350 17 GM PACKET PO SCH (08:34)
[2023-02-20] MEDS ORDERED: HYDROcod/ACETAM 5/325 MG TABLET PO PRN (08:56)
[2023-02-20] MEDS: FUROSEMIDE 20 MG/2 ML VIAL IVP SCH ×2 (10:03→13:12)
[2023-02-20] MEDS ORDERED: MAGNESIUM SULFATE 1 GM in SODIUM CHLORIDE 0.9% 50 ML IV ONE (10:15)
--- NOTE | 2023-02-20 10:23 | PROVIDER PROGRESS NOTE ---
Assessment/Plan - Problem List (1) Atrial fibrillation with RVR Assessment/Plan: The admitted that he has stopped being compliant with his medications, he usually takes the morning dose but has been refusing the evening dose or refusing both doses in the day and often it is because he is sleeping thru them. He was to be on Toprol-XL. I am adjusted the dose from 50 mg in a.m. to 25 twice daily to spread out the dosing. He had an overnight heart rate of 50. This morning he has a heart rates of 120 to 160 Plan: I will admit him from Observation to Inpatient status, for further adjustment of all of his medicines for rate control I will make the morning Toprol 50 mg>> 25 BID I will add new Digoxin for rate control given his hypotension (see #4) Remain on telemetry Continue with his DOAC, unless freq falls show that resumption is too risky. I updated the at bedside and daughter Francisca on the phone today (2) Acute on chronic systolic heart failure Conclusion/Plan: As in #1, noncompliance with his medications is the most likely cause for rapid heart rate, which in turn caused this heart failure exacerbation An Echo was done at presentation in the ER and his EF is less than 20%. Plan: Cont IV twice daily diuretics. Start spironolactone 25 mg daily, will stagger it, give it at noon Cont B-julian Follow daily weights, I's and O's, BUN/creatinine, electrolytes and magnesium, replace if low (3) Fall at home Conclusion/Plan: The gives a description of him slowly worsening with weakness over the past 3 to 4 months. He had a fall a month ago when he walked on uneven terrain outside, was seen in an ER and checked out okay. He then had a fall several weeks ago when he over reached, had no trauma and he did not seek medical attention. 4 days ago the found him on the floor and did not see his fall. The night before adm the patient almost fell when using his walker, he landed against the wall and did not fully drop to the ground, she secured him and had him sit on the seat on his walker Plan: PT and OT evaluations ordered>> He is deconditioned and would benefit from rehab at a SNF Orthostatic vital signs ordered (4) Orthostatic Hypotension Orthostatic vitals are now checked and he is orthostatic with heart rate going from 126 supine to 162 standing and he is hypotensive with systolic blood pressures in the 80s and 90s systolic Plan: He was on an ARB, this will not be resumed We will add digoxin for rate control, not higher B-julian dose Will add Midodrine TID w/ meals to improve blood pressure I updated the at bedside and daughter Louise sent on the phone regarding these plan (in 1-4 above) (5) Diabetes mellitus Conclusion/Plan: Plan: Cont diabetic diet Hold metformin until I watch his creatinine for several days on IV diuretics Cont fingerstick checks, sliding scale coverage, hypoglycemia protocol (6) Open wound of both legs with complication Conclusion/Plan: Patient goes to the [facility] wound clinic every week on . He gets wrapping of both shins. Most recent findings were 2 blisters of the right lower leg which were both drained and a chronic left mckeon wound that gets wrapped and causes him pain. Plan: Continue with wrapping weekly and MAC wound follow-up every Continue with pain meds as needed>> Tylenol prn and I added [place] prn (7) Generalized weakness Conclusion/Plan: The gives a description of him slowly worsening with weakness over the past 3 to 4 months. The patient now sleeps most of the day for the past 4 days. His ambulation is very poor, he uses a walker wherever he goes. Despite the walker, he has had 2 falls a month ago and 2 falls in the last 4 days Plan: Orthostatic vital sign checks PT and OT evaluations If he qualifies he would benefit from rehab at a SNF (8) Dementia Conclusion/Plan: Plan: We have resumed his donepezil - Current Meds Current Meds: Current Medications Generic Name Dose Route Start Last Admin Trade Name Freq PRN Reason Stop Dose Admin Acetaminophen 650 mg 02/19/23 16:28 02/19/23 20:32 Acetaminophen 325 Mg Tablet PO 650 mg Q4HR PRN Administration Pain 1 to 4, or Fever Apixaban 5 mg 02/19/23 21:00 02/20/23 08:33 Apixaban 5 Mg Tablet PO 5 mg BID RAJNI Administration Aspirin 81 mg 02/20/23 09:00 02/20/23 08:34 Aspirin Ec 81 Mg Tablet PO 81 mg DAILY RAJNI Administration Donepezil HCl 20 mg 02/19/23 21:00 02/19/23 20:35 Donepezil 5 Mg Tablet PO 20 mg QPM RAJNI Administration Furosemide 20 mg 02/20/23 09:25 02/20/23 10:03 Furosemide 20 Mg/2 Ml Vial IVP 20 mg BIDDIURETIC RAJNI Administration Gabapentin 200 mg 02/19/23 21:00 02/20/23 08:33 Gabapentin 100 Mg Capsule PO 200 mg BID RAJNI Administration Metoprolol Succinate 25 mg 02/19/23 21:00 02/20/23 08:33 Metoprolol Succinate 50 Mg Tablet PO 25 mg BID RAJNI Administration Non-Formulary Medication 1,500 mg 02/19/23 21:00 02/19/23 20:35 Levetiracetam [Keppra Xr] PO 1,500 mg BID RAJNI Administration Polyethylene Glycol 17 gm 02/20/23 09:00 02/20/23 08:34 Polyethylene Glycol 3350 17 Gm Packet PO Not Given DAILY RAJNI Sodium Chloride 10 ml 02/19/23 17:00 02/20/23 08:34 Sodium Chloride Flush 0.9% 10 Ml Syringe IVP 10 ml 0100,0900,1700 RAJNI Administration - Lab Result Fish Bone Diagrams: 02/19/23 12:17 02/22/23 04:58 - Other Other Results/Comments: Attestation: The patient is expected to be hospitalized for greater than 2 midnights and is expected to be discharged or transferred to another facility within 96 hours: Yes. - Additional Planning My Orders: My Active Orders 02/19/23 Dinner Carb-controlled Diet [DIET] 02/19/23 16:28 Activity Orders [RC] Q2HR Fluid Restriction [RC] ONCE IO [RC] IOSHIFT Incentive Spirometry - RT [RC] TID Initiate Bowel Care Protocol [RC] .protocol Initiate Line Care Protocol [RC] QSHIFT Initiate Personal Care Protoco [RC] .protocol Oxygen Therapy [RC] .PRN Telemetry (24 Hour) [RC] Q4HR Vital Signs [RC] Q4HR Acetaminophen [Tylenol] 650 mg PO Q4HR PRN Sodium Chloride Flush 0.9% [Normal Saline Flush 0.9%] 10 ml IVP PRN PRN Code Status [OTHERS] Routine Condition of Patient [OTHERS] Routine DVT Prophylaxis [OTHERS] Routine 02/19/23 16:30 Miscellaenous Nursing Order [RC] QSHIFT 02/19/23 16:31 Daily Weight [RC] 0600 IV Insert [RC] .ONCE 02/19/23 17:00 Sodium Chloride Flush 0.9% [Normal Saline Flush 0.9%] 10 ml IVP 0100,0900,1700 02/19/23 21:00 Apixaban [Eliquis] 5 mg PO BID Donepezil [Aricept] 20 mg PO QPM Gabapentin [Neurontin] 200 mg PO BID Levetiracetam [Keppra Xr] 1,500 mg PO BID Metoprolol Succinate [Toprol Xl] 25 mg PO BID 02/20/23 HEMOGLOBIN A1c% [CHEM] Routine Evaluate and Treat OT [OT] Routine Evaluate and Treat PT [PT] Routine 02/20/23 08:56 HYDROcod/ACETAM 5/325 [[place] 5/325] 1 tab PO Q12H PRN 02/20/23 09:00 Aspirin EC [Ecotrin] 81 mg PO DAILY polyethylene glycoL 3350 [Miralax] 17 gm PO DAILY 02/20/23 09:07 Admit [Admit \ Transfer \ Status] [RC] .ONCE 02/20/23 09:24 Telemetry- [RC] Q4HR 02/20/23 09:25 FUROSEMIDE INJ 20mg VIAL [LASIX INJ 20mg VIAL] 20 mg IVP BIDDIURETIC 02/20/23 09:26 Orthostatic [Vital Signs - Orthostatic] [RC] QSHIFT 02/20/23 10:15 MAGNESIUM SULFATE 1 GM in NS 0.9% OVER 1 HOUR Magnesium Sulfate 1 gm Sodium Chloride 0.9% [Normal Saline 0.9%] 50 ml IV ONCE 02/20/23 10:16 Blood Glucose Checks - Eating [RC] 0800,1200,1700,2100 Initiate Hypoglycemia Protocol [RC] .protocol 02/20/23 12:00 Insulin Lispro [Humalog Kwikpen U-100] 1 - 5 unit SUBQ 0800,1200,1700,2100 Spironolactone [Aldactone] 25 mg PO 1200 02/20/23 21:00 Insulin Glargine-Yfgn [Semglee] 5 unit SUBQ BID 02/21/23 08:00 Magnesium Oxide [Mag Ox] 400 mg PO DAILYWM Subjective - Subjective Patient Reports: Feeling Better (Appears more energetic, is seated upright in chair and speaking more. Denies pain or any sx.) Objective Vital Signs: Vital Signs - 24 hr 02/19/23 02/19/23 02/19/23 11:27 12:35 12:47 Temperature 36.5 C Heart Rate 64 126 H 106 H Heart Rate [ Brachial] Respiratory 16 12 16 Rate Blood Pressure 117/97 H 126/84 H 108/76 Blood Pressure [Right Brachial artery] O2 Saturation 96 96 100 02/19/23 02/19/23 02/19/23 14:06 16:47 17:26 Temperature 36.4 C L Heart Rate 105 H 118 H Heart Rate [ 69 Brachial] Respiratory 20 14 18 Rate Blood Pressure 126/88 H 122/89 H Blood Pressure 115/68 [Right Brachial artery] O2 Saturation 100 100 93 02/19/23 02/19/23 02/20/23 20:05 22:39 04:59 Temperature 36.2 C L 36.2 C L 36.3 C L Heart Rate Heart Rate [ 93 107 H 103 H Brachial] Respiratory 16 16 16 Rate Blood Pressure Blood Pressure 105/61 118/75 120/63 [Right Brachial artery] O2 Saturation 95 92 94 02/20/23 08:24 Temperature 36.2 C L Heart Rate Heart Rate [ 50 L Brachial] Respiratory Rate Blood Pressure Blood Pressure 108/83 H [Right Brachial artery] O2 Saturation 98 Oxygen O2 Source Room air I&O (Last 24 Hrs): Intake and Output Totals x24h 02/18/23 02/19/23 02/20/23 23:59 23:59 23:59 Intake Total 200 Output Total 850 1 Balance -850 199 General: Alert HEENT: Mucous membr. moist/pink Neck: Supple, No JVD (in upright position) Neuro: Alert, Non Focal Cardiovascular: No murmurs Respiratory: No respiratory distress, Breath sounds nml Extremities: No clubbing, Other (Trace foot edema) - Results Results: Laboratory Results WBC 4.6 x10^3/uL (4.8-10.8) L 02/19/23 12:17 RBC 3.96 10^6/uL (4.70-6.10) L 02/19/23 12:17 Hgb 11.2 g/dL (14.0-18.0) L 02/19/23 12:17 Hct 34.2 % (42.0-52.0) L 02/19/23 12:17 MCV 86.4 fL (80.0-94.0) 02/19/23 12:17 MCH 28.3 pg (27.0-31.0) 02/19/23 12:17 MCHC 32.7 g/dL (32.0-36.0) 02/19/23 12:17 RDW 17.3 % (12.0-15.0) H 02/19/23 12:17 Plt Count 109 10^3/uL (130-450) L 02/19/23 12:17 MPV 9.8 fL (7.4-11.4) 02/19/23 12:17 Neut # (Auto) 2.2 10^3/uL (1.5-6.6) 02/19/23 12:17 Lymph # (Auto) 1.9 10^3/uL (1.5-3.5) 02/19/23 12:17 Sargent # (Auto) 0.3 10^3/uL (0.0-1.0) 02/19/23 12:17 Eos # (Auto) 0.2 10^3/uL (0.0-0.7) 02/19/23 12:17 Baso # (Auto) 0.1 10^3/uL (0.0-0.1) 02/19/23 12:17 Absolute Nucleated RBC 0.00 x10^3/uL 02/19/23 12:17 Nucleated RBC % 0.0 /100WBC 02/19/23 12:17 Sodium 134 mmol/L (135-145) L 02/19/23 12:17 Potassium 4.1 mmol/L (3.5-4.5) 02/19/23 12:17 Chloride 94 mmol/L (101-111) L 02/19/23 12:17 Carbon Dioxide 33 mmol/L (21-32) H 02/19/23 12:17 Anion Gap 7.0 (6-13) 02/19/23 12:17 BUN 14 mg/dL (6-20) 02/19/23 12:17 Creatinine 0.7 mg/dL (0.6-1.3) 02/19/23 12:17 Estimated GFR (MDRD) 109 (>89) 02/19/23 12:17 Glucose 243 mg/dL (74-104) H 02/19/23 12:17 POC Whole Bld Glucose 234 mg/dL (70 - 100) H 02/19/23 17:23 Calcium 9.1 mg/dL (8.5-10.3) 02/19/23 12:17 Magnesium 1.2 mg/dL (1.7-2.3) L 02/19/23 12:17 Total Bilirubin 2.6 mg/dL (0.2-1.0) H 02/19/23 12:17 AST 83 IU/L (10-42) H 02/19/23 12:17 ALT 35 IU/L (10-60) 02/19/23 12:17 Alkaline Phosphatase 215 IU/L (42-121) H 02/19/23 12:17 Troponin I High Sens 13.1 ng/L (2.3-19.7) 02/19/23 12:17 B-Natriuretic Peptide 1227 pg/mL (5-100) H 02/19/23 12:17 Total Protein 6.2 g/dL (6.4-8.9) L 02/19/23 12:17 Albumin 3.8 g/dL (3.2-5.5) 02/19/23 12:17 Globulin 2.4 g/dL (2.1-4.2) 02/19/23 12:17 Albumin/Globulin Ratio 1.6 (1.0-2.2) 02/19/23 12:17
[2023-02-20] MEDS ORDERED: MAGNESIUM SULFATE 2 GRAM 2 GM/50 ML BAG IV ONE (11:00)
[2023-02-20] MEDS: INSULIN LISPRO 300 UNIT/3 ML PEN SUBQ SCH ×3 (11:56→21:16)
[2023-02-20] MEDS: SPIRONOLACTONE 25 MG TABLET PO SCH (11:56)
[2023-02-20 12:13] LABS: ESTIMATED AVERAGE GLUCOSE 240 mg/dL (70-100)
--- NOTE | 2023-02-20 12:17 | PHARMACY PROGRESS NOTE ---
- Best Possible Medication History Admit Date and Time: 02/20/23 0907 Processed by: Pharmacy Medication History completed: Yes Patient Interview: Completed Secondary Source(s): Written medication list ( BROUGHT IN MED LIST, WHICH WAS VERY CLEAR AND EASY TO UNDERSTAND. STATES PT FILLED OXYCODONE AFTER AN ER VISIT BUT HAVE NOT BEEN NEEDING TO USE IT. HAVE BEEN TAKING TYLENOL PRN INSTEAD FOR THE PAIN IN THE LEG. PIOGLITAZONE 30MG WAS D/C'D PER PT'S MEDLIST.), Spouse/Significant other As the person ultimately responsible for medication therapy, providers are able to order a medication from an existing home medication list in [facility] via the "Reconcile Routine" prior to Confirmation of that medication by application support consultant. Such practice is discouraged except when the physician, in their clinical judgment, deems that a medical need exists for a medication without regard to previous use.
[2023-02-20] MEDS ORDERED: DIGOXIN 500 MCG/2 ML AMP IVP STA (14:11)
[2023-02-20] MEDS: MIDODRINE 2.5 MG TABLET PO SCH (17:14)
[2023-02-20] MEDS: MULTIVITAMIN W/MINERALS TABLET PO SCH (17:14)
[2023-02-20] MEDS: DONEPEZIL 5 MG TABLET PO SCH (21:14)
[2023-02-20] MEDS: LEVETIRACETAM 750 MG PO SCH (21:15)
[2023-02-20] MEDS: INSULIN GLARGINE-YFGN 300 UNIT/3 ML PEN SUBQ SCH (21:17)
[2023-02-20] MEDS: MAGNESIUM SULFATE 1 GM in SODIUM CHLORIDE 0.9% 50 ML IV SCH ×2 (21:31→22:40)
--- NOTE | 2023-02-20 22:12 | PROVIDER PROGRESS NOTE ---
Cold Water Machine Operator Note - Cold Water Machine Operator Note Cold Water Machine Operator Note: Patient having PVC, Mg is low, mag replaced discussed with RN
[2023-02-21] MEDS: MAGNESIUM SULFATE 1 GM in SODIUM CHLORIDE 0.9% 50 ML IV SCH ×2 (01:01→02:00)
[2023-02-21] MEDS: SODIUM CHLORIDE FLUSH 0.9% 10 ML SYRINGE IVP SCH ×3 (03:02→16:43)
[2023-02-21] MEDS: FUROSEMIDE 20 MG/2 ML VIAL IVP SCH (06:42)
[2023-02-21] MEDS: LEVETIRACETAM 750 MG PO SCH ×2 (09:54→20:49)
[2023-02-21] MEDS: METOPROLOL SUCCINATE 50 MG TABLET PO SCH ×2 (09:54→20:49)
[2023-02-21] MEDS: ASPIRIN EC 81 MG TABLET PO SCH (09:55)
[2023-02-21] MEDS: DIGOXIN 125 MCG TABLET PO SCH (09:55)
[2023-02-21] MEDS: MIDODRINE 2.5 MG TABLET PO SCH ×3 (09:55→17:05)
[2023-02-21] MEDS: GABAPENTIN 100 MG CAPSULE PO SCH ×2 (09:55→20:49)
[2023-02-21] MEDS: APIXABAN 5 MG TABLET PO SCH ×2 (09:55→20:49)
[2023-02-21] MEDS: INSULIN LISPRO 300 UNIT/3 ML PEN SUBQ SCH ×4 (09:55→20:53)
[2023-02-21] MEDS: MULTIVITAMIN W/MINERALS TABLET PO SCH (09:55)
[2023-02-21] MEDS: MAGNESIUM OXIDE 400 MG TABLET PO SCH (09:55)
[2023-02-21] MEDS: INSULIN GLARGINE-YFGN 300 UNIT/3 ML PEN SUBQ SCH (09:56)
[2023-02-21] MEDS: polyethylene glycoL 3350 17 GM PACKET PO SCH (09:56)
[2023-02-21 10:02] LABS: CREATININE 0.7 mg/dL (0.6-1.3); POTASSIUM 3.4 mmol/L (3.5-4.5)
[2023-02-21] MEDS: SPIRONOLACTONE 25 MG TABLET PO SCH (11:55)
--- NOTE | 2023-02-21 13:53 | PROVIDER PROGRESS NOTE ---
Assessment/Plan - Problem List (1) Atrial fibrillation with RVR Assessment/Plan: The described at admission, that he has stopped being compliant with his medications, he usually takes the morning dose but has been refusing the evening dose or refusing both doses in the day and often it is because he is sleeping thru them. He was to be on Toprol-XL. I adjusted the dose from 50 mg in a.m. to 25 twice daily to spread out the dosing. I then gave 250 mcg Dig iv x1 and started po Dig 125 mcg daily. His HR is now <100. His Dig level today is not toxic, it is 0.5 (all labs were reviewed) Plan: Cont Toprol 25 bid Cont Digoxin po for rate control Remain on telemetry Continue with his DOAC, unless freq falls show that resumption is too risky (2) Acute on chronic systolic heart failure Conclusion/Plan: As in #1, noncompliance with his medications is the most likely cause for rapid heart rate, which in turn caused this heart failure exacerbation An Echo was done at presentation in the ER and his EF is 10-20%. Plan: I will change IV twice daily diuretics to once daily, since he is not hypoxic even when active Cont B-julian Cont spironolactone 25 mg daily, staggering it due to low BPs, give it at noon He is still not back on his Losartan due to severe orthostasis Follow daily weights, I's and O's, BUN/creatinine, electrolytes and magnesium, replace if low (3) Hypomagnesemia This is likely from loss due to IV BID diuretics and frpm poor po intake before admission Plan: We will replace with Mg riders Follow magnesium level daily (4) Fall at home Conclusion/Plan: The gives a description of him slowly worsening with weakness over the past 3 to 4 months. He had a fall a month ago when he walked on uneven terrain outside, was seen in an ER and checked out okay. He then had a fall several weeks ago when he over reached, had no trauma and he did not seek medical attention. 4 days ago the found him on the floor and did not see his fall. Last night the patient almost fell when using his walker, he landed against the wall and did not fully drop to the ground, she secured him and had him sit on the seat on his walker Plan: PT and OT evaluations ordered>> He is deconditioned and would benefit from rehab at a SNF Orthostatic vital signs to cont (5) Orthostatic Hypotension Orthostatic vitals are now checked and he is orthostatic with heart rate going from 126 supine to 162 standing and he is hypotensive with systolic blood pressures in the 80s and 90s systolic Plan: Remain off the Losartan Cont new midodrine 2.5 TID w/ meals to improve blood pressure I updated the at bedside and daughter Louise sent on the phone regarding these plan (in 1-4 above) (6) Diabetes mellitus Conclusion/Plan: Plan: Order diabetic diet Hold metformin until I watch his creatinine for several days on IV diuretics Cont fingerstick checks, sliding scale coverage, hypoglycemia protocol (7) Open wound of both legs with complication Conclusion/Plan: Patient goes to [facility] [place] [facility] every week on . He gets wrapping of both shins. Most recent findings were 2 blisters of the right lower leg which were both drained and a chronic left mckeon wound that gets wrapped and causes him pain. Plan: Continue with wrapping weekly and [facility] wound follow-up every Continue with pain meds as needed>> Tylenol prn and I added [place] prn (8) Generalized weakness Conclusion/Plan: The gives a description of him slowly worsening with weakness over the past 3 to 4 months. The patient now sleeps most of the day for the past 4 days. His ambulation is very poor, he uses a walker wherever he goes. Despite the walker, he has had 2 falls a month ago and 2 falls in the last 4 days Plan: Orthostatic vital sign checks PT and OT evaluations If he qualifies he would benefit from rehab at a SNF (9) Dementia Conclusion/Plan: Plan: Cont his donepezil - Current Meds Current Meds: Current Medications Generic Name Dose Route Start Last Admin Trade Name Freq PRN Reason Stop Dose Admin Acetaminophen 650 mg 02/19/23 16:28 02/19/23 20:32 Acetaminophen 325 Mg Tablet PO 650 mg Q4HR PRN Administration Pain 1 to 4, or Fever Apixaban 5 mg 02/19/23 21:00 02/21/23 09:55 Apixaban 5 Mg Tablet PO 5 mg BID RAJNI Administration Aspirin 81 mg 02/20/23 09:00 02/21/23 09:55 Aspirin Ec 81 Mg Tablet PO 81 mg DAILY RAJNI Administration Digoxin 125 mcg 02/21/23 09:00 02/21/23 09:55 Digoxin 125 Mcg Tablet PO 125 mcg DAILY RAJNI Administration Donepezil HCl 20 mg 02/19/23 21:00 02/20/23 21:14 Donepezil 5 Mg Tablet PO 20 mg QPM RAJNI Administration Gabapentin 200 mg 02/19/23 21:00 02/21/23 09:55 Gabapentin 100 Mg Capsule PO 200 mg BID RAJNI Administration Insulin Human Lispro 1 - 5 unit 02/20/23 12:00 02/21/23 11:56 Insulin Lispro 300 Unit/3 Ml Pen SUBQ 2 unit 0800,1200,1700,2100 [facility] Administration Protocol Magnesium Oxide 400 mg 02/21/23 08:00 02/21/23 09:55 Magnesium Oxide 400 Mg Tablet PO 400 mg DAILYWM RAJNI Administration Metoprolol Succinate 25 mg 02/19/23 21:00 02/21/23 09:54 Metoprolol Succinate 50 Mg Tablet PO 25 mg BID RAJNI Administration Midodrine 2.5 mg 02/20/23 17:00 02/21/23 11:55 Midodrine 2.5 Mg Tablet PO 2.5 mg TIDWM RAJNI Administration Multivitamins/Minerals 1 tab 02/20/23 17:00 02/21/23 09:55 Multivitamin W/Minerals Tablet PO 1 tab DAILYWM RAJNI Administration Patient Own Med ( 2 each 02/20/23 21:00 02/21/23 09:54 Levetiracetam 750mg PO 2 each Tabs) BID RAJNI Administration Polyethylene Glycol 17 gm 02/20/23 09:00 02/21/23 09:56 Polyethylene Glycol 3350 17 Gm Packet PO Not Given DAILY [facility] Sodium Chloride 10 ml 02/19/23 17:00 02/21/23 09:56 Sodium Chloride Flush 0.9% 10 Ml Syringe IVP 10 ml 0100,0900,1700 [facility] Administration Spironolactone 25 mg 02/20/23 12:00 02/21/23 11:55 Spironolactone 25 Mg Tablet PO 25 mg 1200 RAJNI Administration - Lab Result Fish Bone Diagrams: 02/19/23 12:17 02/22/23 04:58 - Additional Planning My Orders: My Active Orders 02/20/23 Dinner Carb-controlled Diet [DIET] 02/20/23 17:00 Midodrine [ProAmatine] 2.5 mg PO TIDWM Multivitamin W/Minerals [Theragran M] 1 tab PO DAILYWM 02/20/23 21:00 Patient Own Med 2 each PO BID 02/21/23 08:00 Magnesium Oxide [Mag Ox] 400 mg PO DAILYWM 02/21/23 09:00 Digoxin [Lanoxin] 125 mcg PO DAILY 02/22/23 05:00 BMP - BASIC METABOLIC PANEL [CHEM] DAILYLAB DIGOXIN [CHEM] DAILYLAB 02/22/23 09:00 FUROSEMIDE INJ 20mg VIAL [LASIX INJ 20mg VIAL] 20 mg IVP DAILY Insulin Glargine-Yfgn [Semglee] 8 unit SUBQ DAILY Subjective - Subjective Patient Reports: Feeling Better (Looks more energetic, is sitting up feeding himself, more talkative. Denies any problems) Objective Vital Signs: Vital Signs - 24 hr 02/20/23 02/20/23 02/20/23 14:30 15:46 21:00 Temperature 36.1 C L 36.3 C L Heart Rate 107 H Heart Rate [ 100 100 Brachial] Respiratory 18 18 Rate Blood Pressure 114/70 131/79 H [Right Brachial artery] O2 Saturation 100 100 02/21/23 02/21/23 02/21/23 00:53 05:14 08:52 Temperature 36.2 C L 36.2 C L 36.4 C L Heart Rate Heart Rate [ 82 88 56 L Brachial] Respiratory 16 16 20 Rate Blood Pressure 129/76 145/84 H 86/63 L [Right Brachial artery] O2 Saturation 93 96 99 Oxygen O2 Source Room air I&O (Last 24 Hrs): Intake and Output Totals x24h 02/19/23 02/20/23 02/21/23 23:59 23:59 23:59 Intake Total 404 104 Output Total 850 851 280 Balance -359 -510 -819 General: Alert, No acute distress HEENT: Mucous membr. moist/pink, Other (Pale) Neck: Supple, No JVD (in vertical seated position) Neuro: Alert, Non Focal Cardiovascular: No murmurs Respiratory: No respiratory distress, Breath sounds nml Abdomen: Normal bowel sounds, Soft Extremities: No clubbing, Other (Trace pedal edema) - Results Results: Laboratory Results WBC 4.6 x10^3/uL (4.8-10.8) L 02/19/23 12:17 RBC 3.96 10^6/uL (4.70-6.10) L 02/19/23 12:17 Hgb 11.2 g/dL (14.0-18.0) L 02/19/23 12:17 Hct 34.2 % (42.0-52.0) L 02/19/23 12:17 MCV 86.4 fL (80.0-94.0) 02/19/23 12:17 MCH 28.3 pg (27.0-31.0) 02/19/23 12:17 MCHC 32.7 g/dL (32.0-36.0) 02/19/23 12:17 RDW 17.3 % (12.0-15.0) H 02/19/23 12:17 Plt Count 109 10^3/uL (130-450) L 02/19/23 12:17 MPV 9.8 fL (7.4-11.4) 02/19/23 12:17 Neut # (Auto) 2.2 10^3/uL (1.5-6.6) 02/19/23 12:17 Lymph # (Auto) 1.9 10^3/uL (1.5-3.5) 02/19/23 12:17 [place] # (Auto) 0.3 10^3/uL (0.0-1.0) 02/19/23 12:17 Eos # (Auto) 0.2 10^3/uL (0.0-0.7) 02/19/23 12:17 Baso # (Auto) 0.1 10^3/uL (0.0-0.1) 02/19/23 12:17 Absolute Nucleated RBC 0.00 x10^3/uL 02/19/23 12:17 Nucleated RBC % 0.0 /100WBC 02/19/23 12:17 Sodium 134 mmol/L (135-145) L 02/21/23 09:35 Potassium 3.4 mmol/L (3.5-4.5) L 02/21/23 09:35 Chloride 93 mmol/L (101-111) L 02/21/23 09:35 Carbon Dioxide 32 mmol/L (21-32) 02/21/23 09:35 Anion Gap 9.0 (6-13) 02/21/23 09:35 BUN 16 mg/dL (6-20) 02/21/23 09:35 Creatinine 0.7 mg/dL (0.6-1.3) 02/21/23 09:35 Estimated GFR (MDRD) 109 (>89) 02/21/23 09:35 Glucose 199 mg/dL (74-104) H 02/21/23 09:35 POC Whole Bld Glucose 203 mg/dL (70 - 100) H 02/21/23 11:26 Estimat Average Glucose 240 mg/dL (70-100) H 02/20/23 10:26 Hemoglobin A1c % 10.0 % (4.27-6.07) H 02/20/23 10:26 Calcium 9.0 mg/dL (8.5-10.3) 02/21/23 09:35 Magnesium 1.2 mg/dL (1.7-2.3) L 02/19/23 12:17 Total Bilirubin 2.6 mg/dL (0.2-1.0) H 02/19/23 12:17 AST 83 IU/L (10-42) H 02/19/23 12:17 ALT 35 IU/L (10-60) 02/19/23 12:17 Alkaline Phosphatase 215 IU/L (42-121) H 02/19/23 12:17 Troponin I High Sens 13.1 ng/L (2.3-19.7) 02/19/23 12:17 B-Natriuretic Peptide 1227 pg/mL (5-100) H 02/19/23 12:17 Total Protein 6.2 g/dL (6.4-8.9) L 02/19/23 12:17 Albumin 3.8 g/dL (3.2-5.5) 02/19/23 12:17 Globulin 2.4 g/dL (2.1-4.2) 02/19/23 12:17 Albumin/Globulin Ratio 1.6 (1.0-2.2) 02/19/23 12:17
[2023-02-21] MEDS: DONEPEZIL 5 MG TABLET PO SCH (20:48)
[2023-02-21] MEDS ORDERED: INSULIN LISPRO 300 UNIT/3 ML PEN SUBQ SCH (22:11)
[2023-02-22] MEDS: SODIUM CHLORIDE FLUSH 0.9% 10 ML SYRINGE IVP SCH ×3 (00:17→15:49)
[2023-02-22 05:28] LABS: CALCIUM 8.7 mg/dL (8.5-10.3); CREATININE 0.8 mg/dL (0.6-1.3); POTASSIUM 3.5 mmol/L (3.5-4.5)
[2023-02-22 05:47] LABS: DIGOXIN 0.5 ng/mL
--- NOTE | 2023-02-22 07:53 | PROVIDER PROGRESS NOTE ---
Assessment/Plan - Problem List (1) Atrial fibrillation with RVR Assessment/Plan: The described at admission that he had stopped being compliant with his medications, he usually takes the morning dose but was refusing the evening dose or refusing both doses in the day and often it is because he is sleeping thru them. He was to be on Toprol-XL. I adjusted the dose from 50 mg in a.m. to 25 BID to spread out the dosing. I then added daily Dig after a one-time Dig 250 mcg iv push, it was started due to his hypotension from orthostasis He now has HRs of 80's His Dig level is not toxic, it was 0.5 yesterday Plan: Cont Toprol 25 BID Cont new daily po Digoxin for rate control, Remain on telemetry Continue with his DOAC, unless freq falls show that resumption is too risky (2) Acute on chronic systolic heart failure Conclusion/Plan: As in #1, noncompliance with his medications is the most likely cause for rapid heart rate, which in turn caused this heart failure exacerbation An Echo was done at presentation and his EF is 10-20%. Plan: Continue the beta-julian Today I will change daily iv Lasix to daily oral Lasix Cont spironolactone 25 mg daily, staggered, give it at noon Today I will resume his Losartan 25 mg daily and assure he is not orthostatic If he is stable vital signs today, anticipate discharge tomorrow (3) Orthostatic Hypotension Conclusion/Plan: Orthostatic vitals are now being checked and he was orthostatic with heart rate going from 126 supine to 162 standing and he was hypotensive with systolic blood pressures in the 80s and 90s systolic. I then started midodrine 2.5 3 times daily with meals. On that Midodrine dose, and with his other meds adjusted and staggered, and Losartan on hold, he has not been orthostatic for 24 hours. Plan: Will restart Losartan today Cont this Midodrine dose which has improved his blood pressure If he is stable vital signs today, anticipate discharge tomorrow (4) Fall at home Conclusion/Plan: The gives a description of him slowly worsening with weakness over the past 3 to 4 months. He had a fall a month ago when he walked on uneven terrain outside, was seen in an ER and checked out okay. He then had a fall several weeks ago when he over reached, had no trauma and he did not seek medical attention. Several days ago the found him on the floor and did not see his fall. The night before adm, the patient almost fell when using his walker, he landed against the wall and did not fully drop to the ground, she secured him and had him sit on the seat on his walker. PT and OT evaluations were done. He is deconditioned and would benefit from rehab at a SNF, and he agrees. Plan: Cont orthostatic vital signs checks, since new meds are being resumed today Anticipate DCh to a SNF (5) Hypomagnesemia This was likely from loss due to getting diuretics plus poor po intake for se veral weeks. Plan: Will give extra Mag iv [place] Cont daily po Mg Follow magnesium level daily (6) Diabetes mellitus Conclusion/Plan: His A1c came back at 10, but we know he was not taking any meds He has been gettimg Lantus here for glu 200-300 Plan: Cont diabetic diet Today I will resume his metformin dose, since creat has been stable, even on IV diuretics Cont fingerstick checks, sliding scale coverage, hypoglycemia protocol If he is not hypoglycemic on the restarted metformin today, anticipate discharge tomorrow (7) Open wound of both legs with complication Conclusion/Plan: Patient goes to the [facility] wound clinic every week on and his appointment yesterday was changed to today at 1045 am. He gets wrapping of both shins. Most recent findings were 2 blisters of the right lower leg which were both dr pena and a chronic left mckeon wound that gets wrapped and causes him pain. Plan: Continue with wrapping weekly and [facility] wound follow-up every Continue with pain meds as needed>> Tylenol prn and I added [place] prn (8) Generalized weakness Conclusion/Plan: The gives a description of him slowly worsening with weakness over the past 3 to 4 months. The patient now sleeps most of the day for the past 4 days. His ambulation is very poor, he uses a walker wherever he goes. Despite the walker, he has had 2 falls a month ago and 2 falls in the last 4 days Plan: Orthostatic vital sign checks to cont PT and OT evaluations indicate he would benefit from rehab at a SNF (9) Dementia Conclusion/Plan: Plan: Cont his home dose of donepezil - Current Meds Current Meds: Current Medications Generic Name Dose Route Start Last Admin Trade Name [place] PRN Reason Stop Dose Admin Acetaminophen 650 mg 02/19/23 16:28 02/19/23 20:32 Acetaminophen 325 Mg Tablet PO 650 mg Q4HR PRN Administration Pain 1 to 4, or Fever Apixaban 5 mg 02/19/23 21:00 02/21/23 20:49 Apixaban 5 Mg Tablet PO 5 mg BID RAJNI Administration Aspirin 81 mg 02/20/23 09:00 02/21/23 09:55 Aspirin Ec 81 Mg Tablet PO 81 mg DAILY RAJNI Administration Digoxin 125 mcg 02/21/23 09:00 02/21/23 09:55 Digoxin 125 Mcg Tablet PO 125 mcg DAILY RAJNI Administration Donepezil HCl 20 mg 02/19/23 21:00 02/21/23 20:48 Donepezil 5 Mg Tablet PO 20 mg QPM RAJNI Administration Gabapentin 200 mg 02/19/23 21:00 02/21/23 20:49 Gabapentin 100 Mg Capsule PO 200 mg BID RAJNI Administration Magnesium Oxide 400 mg 02/21/23 08:00 02/21/23 09:55 Magnesium Oxide 400 Mg Tablet PO 400 mg DAILYWM RAJNI Administration Metoprolol Succinate 25 mg 02/19/23 21:00 02/21/23 20:49 Metoprolol Succinate 50 Mg Tablet PO 25 mg BID RAJNI Administration Midodrine 2.5 mg 02/20/23 17:00 02/21/23 17:05 Midodrine 2.5 Mg Tablet PO 2.5 mg TIDWM RAJNI Administration Multivitamins/Minerals 1 tab 02/20/23 17:00 02/21/23 09:55 Multivitamin W/Minerals Tablet PO 1 tab DAILYWM RAJNI Administration Patient Own Med ( 2 each 02/20/23 21:00 02/21/23 20:49 Levetiracetam 750mg PO 2 each Tabs) BID RAJNI Administration Polyethylene Glycol 17 gm 02/20/23 09:00 02/21/23 09:56 Polyethylene Glycol 3350 17 Gm Packet PO Not Given DAILY RAJNI Sodium Chloride 10 ml 02/19/23 17:00 02/22/23 00:17 Sodium Chloride Flush 0.9% 10 Ml Syringe IVP 10 ml 0100,0900,1700 RAJNI Administration Spironolactone 25 mg 02/20/23 12:00 02/21/23 11:55 Spironolactone 25 Mg Tablet PO 25 mg 1200 RAJIN Administration - Lab Result Fish Bone Diagrams: 02/19/23 12:17 02/22/23 04:58 - Additional Planning My Orders: My Active Orders 02/21/23 08:00 Magnesium Oxide [Mag Ox] 400 mg PO DAILYWM 02/21/23 09:00 Digoxin [Lanoxin] 125 mcg PO DAILY 02/21/23 22:11 Insulin Lispro [Humalog Kwikpen U-100] 1 - 5 unit SUBQ 0800,1200,1700,2100 02/22/23 05:00 MAGNESIUM [CHEM] Routine 02/22/23 09:00 Furosemide [Lasix] 20 mg PO DAILY Insulin Glargine-Yfgn [Semglee] 8 unit SUBQ DAILY Losartan [Cozaar] 25 mg PO DAILY Subjective - Subjective Patient Reports: Resting Comfortably, No Complaints Objective Vital Signs: Vital Signs - 24 hr 02/21/23 02/21/23 02/21/23 08:52 13:00 17:00 Temperature 36.4 C L 36.5 C 36.4 C L Heart Rate [ 56 L 99 83 Brachial] Respiratory 20 16 18 Rate Blood Pressure 86/63 L 138/73 H 138/66 H [Right Brachial artery] O2 Saturation 99 93 02/21/23 02/21/23 02/22/23 20:55 23:57 03:15 Temperature 36.4 C L 36.4 C L 37.0 C Heart Rate [ 85 82 92 Brachial] Respiratory 16 16 16 Rate Blood Pressure 133/68 H 141/69 H 123/66 [Right Brachial artery] O2 Saturation 96 97 97 Oxygen O2 Source Room air I&O (Last 24 Hrs): Intake and Output Totals x24h 02/20/23 02/21/23 02/22/23 23:59 23:59 23:59 Intake Total 404 454 Output Total 851 280 Balance -447 174 General: Alert, No acute distress HEENT: Atraumatic, Mucous membr. moist/pink Neck: Supple, No JVD Neuro: Alert, Non Focal, Other (Poor memory) Cardiovascular: No murmurs Respiratory: No respiratory distress Abdomen: Soft Extremities: No clubbing, No edema, No tenderness/swelling - Results Results: Laboratory Results WBC 4.6 x10^3/uL (4.8-10.8) L 02/19/23 12:17 RBC 3.96 10^6/uL (4.70-6.10) L 02/19/23 12:17 Hgb 11.2 g/dL (14.0-18.0) L 02/19/23 12:17 Hct 34.2 % (42.0-52.0) L 02/19/23 12:17 MCV 86.4 fL (80.0-94.0) 02/19/23 12:17 MCH 28.3 pg (27.0-31.0) 02/19/23 12:17 MCHC 32.7 g/dL (32.0-36.0) 02/19/23 12:17 RDW 17.3 % (12.0-15.0) H 02/19/23 12:17 Plt Count 109 10^3/uL (130-450) L 02/19/23 12:17 MPV 9.8 fL (7.4-11.4) 02/19/23 12:17 Neut # (Auto) 2.2 10^3/uL (1.5-6.6) 02/19/23 12:17 Lymph # (Auto) 1.9 10^3/uL (1.5-3.5) 02/19/23 12:17 [place] # (Auto) 0.3 10^3/uL (0.0-1.0) 02/19/23 12:17 Eos # (Auto) 0.2 10^3/uL (0.0-0.7) 02/19/23 12:17 Baso # (Auto) 0.1 10^3/uL (0.0-0.1) 02/19/23 12:17 Absolute Nucleated RBC 0.00 x10^3/uL 02/19/23 12:17 Nucleated RBC % 0.0 /100WBC 02/19/23 12:17 Sodium 134 mmol/L (135-145) L 02/22/23 04:58 Potassium 3.5 mmol/L (3.5-4.5) 02/22/23 04:58 Chloride 93 mmol/L (101-111) L 02/22/23 04:58 Carbon Dioxide 35 mmol/L (21-32) H 02/22/23 04:58 Anion Gap 6.0 (6-13) 02/22/23 04:58 BUN 16 mg/dL (6-20) 02/22/23 04:58 Creatinine 0.8 mg/dL (0.6-1.3) 02/22/23 04:58 Estimated GFR (MDRD) 93 (>89) 02/22/23 04:58 Glucose 253 mg/dL (74-104) H 02/22/23 04:58 POC Whole Bld Glucose 200 mg/dL (70 - 100) H 02/22/23 07:44 Estimat Average Glucose 240 mg/dL (70-100) H 02/20/23 10:26 Hemoglobin A1c % 10.0 % (4.27-6.07) H 02/20/23 10:26 Calcium 8.7 mg/dL (8.5-10.3) 02/22/23 04:58 Magnesium 1.2 mg/dL (1.7-2.3) L 02/19/23 12:17 Total Bilirubin 2.6 mg/dL (0.2-1.0) H 02/19/23 12:17 AST 83 IU/L (10-42) H 02/19/23 12:17 ALT 35 IU/L (10-60) 02/19/23 12:17 Alkaline Phosphatase 215 IU/L (42-121) H 02/19/23 12:17 Troponin I High Sens 13.1 ng/L (2.3-19.7) 02/19/23 12:17 B-Natriuretic Peptide 1227 pg/mL (5-100) H 02/19/23 12:17 Total Protein 6.2 g/dL (6.4-8.9) L 02/19/23 12:17 Albumin 3.8 g/dL (3.2-5.5) 02/19/23 12:17 Globulin 2.4 g/dL (2.1-4.2) 02/19/23 12:17 Albumin/Globulin Ratio 1.6 (1.0-2.2) 02/19/23 12:17 Last Dose Date 02-21-23 02/22/23 04:58 Last Dose Time 0902/22/23 04:58 Digoxin 0.5 ng/mL 02/22/23 04:58
[2023-02-22] MEDS: LOSARTAN 50 MG TABLET PO SCH (08:08)
[2023-02-22] MEDS: ASPIRIN EC 81 MG TABLET PO SCH (08:08)
[2023-02-22] MEDS: METOPROLOL SUCCINATE 50 MG TABLET PO SCH ×2 (08:08→21:16)
[2023-02-22] MEDS: APIXABAN 5 MG TABLET PO SCH ×2 (08:08→21:16)
[2023-02-22] MEDS: MULTIVITAMIN W/MINERALS TABLET PO SCH (08:08)
[2023-02-22] MEDS: polyethylene glycoL 3350 17 GM PACKET PO SCH (08:08)
[2023-02-22] MEDS: MIDODRINE 2.5 MG TABLET PO SCH ×3 (08:08→16:28)
[2023-02-22] MEDS: MAGNESIUM OXIDE 400 MG TABLET PO SCH (08:08)
[2023-02-22] MEDS: DIGOXIN 125 MCG TABLET PO SCH (08:09)
[2023-02-22] MEDS: GABAPENTIN 100 MG CAPSULE PO SCH ×2 (08:09→21:16)
[2023-02-22] MEDS: FUROSEMIDE 20 MG TABLET PO SCH (08:09)
[2023-02-22] MEDS: LEVETIRACETAM 750 MG PO SCH ×2 (08:10→21:16)
[2023-02-22] MEDS ORDERED: INSULIN GLARGINE-YFGN 300 UNIT/3 ML PEN SUBQ SCH (09:00)
[2023-02-22] MEDS ORDERED: FUROSEMIDE 20 MG/2 ML VIAL IVP SCH (09:00)
[2023-02-22] MEDS ORDERED: MAGNESIUM SULFATE 2 GRAM 2 GM/50 ML BAG IV ONE (10:11)
[2023-02-22] MEDS: SPIRONOLACTONE 25 MG TABLET PO SCH (11:45)
[2023-02-22] MEDS: INSULIN LISPRO 300 UNIT/3 ML PEN SUBQ SCH ×3 (11:45→21:27)
--- NOTE | 2023-02-22 13:41 | Discharge Plan ---
Discharge Plan for SNF / [facility] - Discharge Plan And Transition Orders Problem Reviewed?: Yes Disposition: 03 SNF DC/Xfer Condition: Stable Allergies and Adverse Reactions: Allergies Allergy/AdvReac Type Severity Reaction Status Date / Time No Known Drug Allergies Allergy Verified 02/12/23 17:21 Health Concerns: Patient was hospitalized to treat A-fib with RVR which had put him into heart failure. His main symptoms were severe weakness with hypersomnolence. He had missed many doses of his meds over the last 3 to 4 weeks because he "slept through them". He has had 2 falls a month ago and 2 falls in the last week. We found him to be orthostatic. His medications were adjusted and he improved. He needs further PT and OT rehab at SNF. Plan of Treatment: As above. Care Goals: Improvement in symptoms and stabilization are the goals, and to return home. Assessment: The patient and are agreeable with the plan. - SNF / [facility] Transition Orders Admit to (Facility): [facility] Under the care of (Name): Francisco Javier Hall NP Discharge Diagnosis: (1) Atrial fibrillation with RVR Improved with meds adjusted. (2) Acute on chronic systolic heart failure LVEF this admission was 10-20%. Improved sx with meds adjusted. (3) Orthostatic Hypotension Much improved with staggering his meds and starting new Midodrine 2.5 TID with meals. (4) Fall at home As per Hx. (5) Hypomagnesemia Caused by being on diuretic. He is now on daily oral magnesium. (6) Diabetes mellitus Patient on Metformin twice daily and sliding scale Insulin (7) Open wound of both legs with complication Patient [place] [facility] [place] on , gets leg wraps changed weekly there. (8) Generalized weakness Improving with rehab (9) Dementia Stable on his home dose of donepezil Medicare Certification Statement: I certify that Post Hospital half-way care is medically necessary on a continuing basis for any of the conditions for which she/he is receiving care during hospitalization. Notify PCP of admission and forward orders to primary provider for signature. Weight on admission and: Daily Call PCP immediately if weight increases by: 2 kg Other Notification Orders: Call PCP immediately if patient develops dyspnea, chest pain/tightness or edema. House Bowel Program: Yes Additional Bowel Program Orders: If no BM after 2 days, nurse may give M.O.M. 30ml PO PRN and/or ducolax Supp 1 [place] and/or ABBY 250mg P.O., and/or senna 1-2 tabs PO. On day 3 nurse may give repeat above order until residents constipation is resolved. Annual Influenza Vaccine (between Feb 15 and September 14): Yes Two-step PPD per [facility] [phone] or approved exception documents: Yes Treatments & Other Orders: Daily PT and OT Lab Tests or X-ray Orders: BMP and Magnesium level every Saturday and , Digoxin level every Sat Medication Orders: PLEASE REFER TO THE DISCHARGE MEDICATION LIST. Insulin Orders?: Yes - Medications New Prescriptions: Spironolactone [Aldactone] 25 mg PO 1200 #30 tab Insulin Lispro [Humalog Kwikpen U-100] 1 - 9 unit SUBQ 0800,1200,1700,2100 #1 ea Digoxin [Lanoxin] 125 mcg PO DAILY #30 tab Furosemide [Lasix] 20 mg PO DAILY #30 tab Magnesium Oxide [Mag Ox] 400 mg PO DAILY #30 tab HYDROcod/ACETAM 5/325 [[place] 5/325] 1 tab PO Q12H PRN #6 tab PRN Reason: Severe Pain (Level 7-10) Midodrine [ProAmatine] 2.5 mg PO TIDWM #90 tab Metoprolol Succinate [Toprol Xl] 25 mg PO BID #30 tab - Diet Type: No added salt (Diabetic diet) Texture: Mech soft Liquids: Thin May have monthly special meal: Yes - Therapies | Activity Therapy: Evaluation | Treat if indicated: PT, OT Rehabilitation Potential: Maximize functional status Activity: Activity as Tolerated Weight Bearing: Full Weight Assistance Devices: Walker Follow Up: See PCP after discharge from SNF Insulin Orders - SNF Basal | Correction | Custom Orders: Diagnosis: Diabetes Initiate hypo and hyperglycemia protocols for BG <70 and BG >375. May check BG PRN for signs/symptoms of dysglycemia. Frequency of BG checks: [AC & HS] Basal Insulin: None Correction Insulin: - Select the type of insulin below [Choose: Humalog]100 units /ml insulin inject subq per orders indicate below [] LOW DOSE [X] MODERATE DOSE [] MODERATE/HIGH DOSE [] HIGH DOSE GB UNITS GB UNITS GB UNITS GB UNITS 61-140 0 UNITS 61-140 0 UNITS 61-140 0 UNITS 61-140 0 UNITS 141-175 1 UNITS 141-175 1 UNITS 141-175 2 UNITS 141-175 3 UNITS 176-225 2 UNITS 176-225 3 UNITS 176-225 4 UNITS 176-225 5 UNITS 226-275 3 UNITS 226-275 5 UNITS 226-275 6 UNITS 226-275 7 UNITS 276-325 4 UNITS 276-325 7 UNITS 276-325 8 UNITS 276-325 9 UNITS 326-375 5 UNITS 326-375 9 UNITS 326-375 10 UNITS 326-375 11 UNITS >375 CONTACT MD >375 CONTACT MD >375 CONTACT MD >375 CONTACT MD
[2023-02-22] MEDS: metFORMIN 500 MG TABLET PO SCH (16:28)
[2023-02-22] MEDS ORDERED: LEVETIRACETAM 750 MG PO SCH (21:00)
[2023-02-22] MEDS: DONEPEZIL 5 MG TABLET PO SCH (21:16)
[2023-02-23] MEDS: SODIUM CHLORIDE FLUSH 0.9% 10 ML SYRINGE IVP SCH ×2 (01:00→08:55)
--- NOTE | 2023-02-23 07:44 | DISCHARGE SUMMARY ---
Discharge Summary Admit Date: 02/19/23 Discharge Date: 02/23/23 Discharging Provider: Kati nelson MD Primary Care Provider: Francisco Javier Hall NP Code Status: Do Not Attempt Resuscitation Condition at Discharge: Stable Discharge Disposition: SNF DC/Xfer Discharge Facility Name: [facility] History of Present Illness: This is a 77-year-old male who has a history of dementia, chronic atrial fibrillation, is on a DOAC, he had been admitted here in 2019 for A-fib with RVR and was found to have EF of 35 to 40% with pulmonary hypertension. He told us then that he had stopped all his medicines "for several days when he found out he was COVID-positive, from the shock of it". At discharge, he was advised to have a Clinical Operations Consultant as an outpatient. He has never gone to see a Clinical Operations Consultant over those 3 years, but was about to establish with a new pocket flap creasing machine operator today, at an office visit w/ Dr Laguna. The patient never went to that Cardiology appointment today because he has fallen at home twice over the last several days, and he presented to our emergency room. The gave all the information, due to his dementia and describe weakness, several falls which she thought was from his weakness, described that he is more forgetful, and reported a 20 pound weight gain. He has chronic wounds on his legs that are being treated. In the ER he had he was found to be in A-fib at a rate of 150 and room air O2 saturation was 90%. Troponin was normal, BNP 1227. He received IV metoprolol and heart rate dropped to 105 in A-fib. A bedside echo was done in the ER showing that his LVEF is now 10 to 20% with moderate to severe pulm hypertension PA pressure 65 mmHg. The ED provider spoke to me about this patient. He will be placed in observation for diuresis and achieving better rate control of his RVR. At the last admission in 2019, the patient wanted to be a full code. Today I discussed CODE BLUE with his (see separate ACP note) and he will be changed to a DNR/DNI. - HOSPITAL COURSE Hospital Course: (1) Atrial fibrillation with RVR The described that he was missing or refusing his meds often because he was sleeping thru dose times. He was to be on Toprol-XL 50 mgdaily, which was changed to 25 BID to spread out the dosing. I then added daily Dig after a one- time Dig 250 mcg iv push, since he was severely hypotensive from orthostasis. These changes produce rate control, and were ordered to continue after discharge. We continued his DOAC. (2) Acute on chronic systolic heart failure Noncompliance with his medications was the most likely cause for rapid heart rate, which in turn caused this heart failure exacerbation. An Echo was done that showed an EF of 10-20%. IV twice daily Lasix that was changed to daily then oral dose, beta-julian was spread out as above, spironolactone was started and given at noon and losartan was eventually resumed. (3) Orthostatic Hypotension Orthostatic vitals were checked and showed his systolic blood pressures ran in the 80s and 90s, and his heart rate went from 126 supine to 162 standing. He was started on Midodrine 2.5 TID with meals. On that Midodrine dose, and with his other meds adjusted and staggered, he was no longer orthostatic nor hypotensive. (4) Fall at home The described slowly worsening weakness over 3 to 4 months. He had a fall a month ago when he walked on uneven terrain outside, was seen in an ER and checked out okay. He then had a fall several weeks ago when he over reached, had no trauma and he did not seek medical attention. Several days ago the found him on the floor and did not see his fall; they sought no medical attention. And the night before admission, the patient almost fell when using his walker, he landed against the wall and did not fully drop to the ground, she secured him and had him sit on the seat on his walker. We found him to be very orthostatic, which resolved with treatment. He was also very deconditioned and was discharged to SNF for PT and OT rehab. (5) Hypomagnesemia This was likely from losses due to getting diuretics plus poor po intake for several weeks. He got Mg replacement and is now on daily po Mg (6) Diabetes mellitus His A1c came back at 10, but we know he was not taking his Metformin reliably. He got Lantus and ss Insulin to manage glu of 200-300. At discharge to the SNF, his Metformin was resumed plus an Insulin sliding scale only. (7) Open wound of both legs with complication Patient goes to [place] [facility] [place] every week on . He gets wrapping of both shins. Tylenol and new [place] was ordered for pain. (8) Generalized weakness The described slowly worsening weakness over 3 to 4 months. He had been sleeping most of the day for the past 4 days, she said. His ambulation was unsteady, he uses a walker. Despite the walker, he had 2 falls a month ago and 2 falls in the 4 days preceding admission. We found him to be very orthostatic, which resolved with treatment. He was also very deconditioned and he was discharged to SNF for PT and OT rehab. (9) Dementia We continued his home dose of Donepezil - ALLERGIES Allergies/Adverse Reactions: Allergies Allergy/AdvReac Type Severity Reaction Status Date / Time No Known Drug Allergies Allergy Verified 02/12/23 17:21 - MEDICATIONS Home Medications: Ambulatory Orders Medication Instructions Recorded Confirmed Aspirin [Aspir 81] 81 mg PO DAILY 06/07/14 02/19/23 Gabapentin [Neurontin] 200 mg PO BID 03/21/20 02/19/23 Losartan [Cozaar] 25 mg PO DAILY 03/21/20 02/19/23 Metformin HCl [Metformin HCl ER] 1,000 mg PO BID 03/21/20 02/19/23 Apixaban [Eliquis] 5 mg PO BID #60 tablet 03/22/20 02/19/23 Ergocalciferol (Vitamin D2) 1,250 mcg PO Q7D 01/23/23 02/19/23 [Drisdol] [place]-3S/Dha/Epa/Fish Oil [Fish 1 each PO BID 01/23/23 02/19/23 Oil 1,200 mg Softgel] Donepezil HCl [Aricept] 20 mg PO DAILY PM 02/19/23 02/19/23 Acetaminophen [Tylenol] 500 mg PO Q4-6H PRN 02/20/23 02/20/23 Levetiracetam [Keppra] 1,500 mg PO BID 02/20/23 02/20/23 Digoxin [Lanoxin] 125 mcg PO DAILY #30 tab 02/22/23 Furosemide [Lasix] 20 mg PO DAILY #30 tab 02/22/23 HYDROcod/ACETAM 5/325 [[place] 5/325] 1 tab PO Q12H PRN #6 tab 02/22/23 Insulin Lispro [Humalog Kwikpen 1 - 9 unit SUBQ 02/22/23 U-100] 0800,1200,1700,2100 #1 ea Magnesium Oxide [Mag Ox] 400 mg PO DAILY #30 tab 02/22/23 Metoprolol Succinate [Toprol Xl] 25 mg PO BID #30 tab 02/22/23 Midodrine [ProAmatine] 2.5 mg PO TIDWM #90 tab 02/22/23 Spironolactone [Aldactone] 25 mg PO 1200 #30 tab 02/22/23 - PHYSICAL EXAM AT DISCHARGE General Appearance: positive: No acute distress, Alert, Other (Frail, cachectic, wears a knit cap for warmth.) Eyes Bilateral: positive: Normal inspection, EOMI ENT: positive: ENT inspection nml, No signs of dehydration Neck: positive: Nml inspection, No JVD Respiratory: positive: No respiratory distress, Breath sounds nml Cardiovascular: positive: No murmur, Irregularly irregular Abdomen: positive: Non-tender, Nml bowel sounds, No distention Skin: positive: Warm, Dry, Pallor Extremities: positive: Non-tender, Other (Trace pedal edema. Both shins are wrapped.) Neurologic/Psychiatric: positive: Oriented x3, Other (Poor long-term and short- term memory.) - LABS Result Diagrams: 02/19/23 12:17 02/22/23 04:58 - DIAGNOSTIC IMAGING Diagnostic Imaging Results: Final report reviewed - FOLLOW UP Follow Up: See PCP after discharge from SNF. - TIME SPENT Time Spent in Discharge (Minutes): 50
[2023-02-23] MEDS: INSULIN LISPRO 300 UNIT/3 ML PEN SUBQ SCH ×2 (08:53→11:51)
[2023-02-23] MEDS: LEVETIRACETAM 750 MG PO SCH (08:53)
[2023-02-23] MEDS: FUROSEMIDE 20 MG TABLET PO SCH (08:54)
[2023-02-23] MEDS: APIXABAN 5 MG TABLET PO SCH (08:54)
[2023-02-23] MEDS: GABAPENTIN 100 MG CAPSULE PO SCH (08:54)
[2023-02-23] MEDS: MIDODRINE 2.5 MG TABLET PO SCH ×2 (08:54→11:51)
[2023-02-23] MEDS: METOPROLOL SUCCINATE 50 MG TABLET PO SCH (08:54)
[2023-02-23] MEDS: metFORMIN 500 MG TABLET PO SCH (08:54)
[2023-02-23] MEDS: ASPIRIN EC 81 MG TABLET PO SCH (08:54)
[2023-02-23] MEDS: DIGOXIN 125 MCG TABLET PO SCH (08:54)
[2023-02-23] MEDS: polyethylene glycoL 3350 17 GM PACKET PO SCH (08:54)
[2023-02-23] MEDS: MULTIVITAMIN W/MINERALS TABLET PO SCH (08:54)
[2023-02-23] MEDS: MAGNESIUM OXIDE 400 MG TABLET PO SCH (08:54)
[2023-02-23] MEDS: LOSARTAN 50 MG TABLET PO SCH (08:55)
[2023-02-23] MEDS ORDERED: INSULIN GLARGINE-YFGN 300 UNIT/3 ML PEN SUBQ SCH (09:00)
[2023-02-23] MEDS: SPIRONOLACTONE 25 MG TABLET PO SCH (11:51)
[2023-02-23 12:43] VITALS: O2SAT 97
[2023-02-23 13:41] VITALS: BP 125/67
== END 2023-02-23 13:35 | DRG 308 ==
LOC: EDUNIT# → ED 11:24 → MS2 16:28 → OBSVTOIN 02-20 09:07
PROVIDERS: ADMIT Internal Medicine; ATTEND Internal Medicine
DX: I48.20 Chronic atrial fibrillation, unspecified (principal); I11.0 Hypertensive heart disease with heart failure; I50.23 Acute on chronic systolic (congestive) heart failure; J91.8 Pleural effusion in other conditions classified elsewhere; E11.65 Type 2 diabetes mellitus with hyperglycemia; F03.90 Unspecified dementia, unspecified severity, without behavioral disturbance, psychotic disturbance, mood disturbance, and anxiety; I95.1 Orthostatic hypotension; E83.42 Hypomagnesemia; S81.802A Unspecified open wound, left lower leg, initial encounter; S81.801A Unspecified open wound, right lower leg, initial encounter; R53.1 Weakness; X58.XXXA Exposure to other specified factors, initial encounter; I49.3 Ventricular premature depolarization; G40.909 Epilepsy, unspecified, not intractable, without status epilepticus; T42.6X6A Underdosing of other antiepileptic and sedative-hypnotic drugs, initial encounter; T38.3X6A Underdosing of insulin and oral hypoglycemic [antidiabetic] drugs, initial encounter; T46.6X6A Underdosing of antihyperlipidemic and antiarteriosclerotic drugs, initial encounter; T45.516A Underdosing of anticoagulants, initial encounter; T44.7X6A Underdosing of beta-adrenoreceptor antagonists, initial encounter; T39.016A Underdosing of aspirin, initial encounter; T46.5X6A Underdosing of other antihypertensive drugs, initial encounter; T44.1X6A Underdosing of other parasympathomimetics [cholinergics], initial encounter; D61.818 Other pancytopenia; R60.0 Localized edema; R94.31 Abnormal electrocardiogram [ECG] [EKG]; Z66 Do not resuscitate; E78.00 Pure hypercholesterolemia, unspecified; I25.2 Old myocardial infarction; Z91.128 Patient's intentional underdosing of medication regimen for other reason; R63.5 Abnormal weight gain; Z95.5 Presence of coronary angioplasty implant and graft; Z20.822 Contact with and (suspected) exposure to COVID-19; Z68.21 Body mass index [BMI] 21.0-21.9, adult; Z79.01 Long term (current) use of anticoagulants; Z79.82 Long term (current) use of aspirin; Z79.84 Long term (current) use of oral hypoglycemic drugs; Z79.899 Other long term (current) drug therapy; Z80.42 Family history of malignant neoplasm of prostate; Z82.3 Family history of stroke; Z91.148 Patient's other noncompliance with medication regimen for other reason; Z91.81 History of falling
CPT/HCPCS: 36415; 71045; 80048; 80053; 80162; 83036; 83735; 83880; 84484; 85025; 87635; 93005; 93306; 96374; 97110; 97162; 97166; 97530; 99284; 99285; A9270; J1815; J7040

== ENCOUNTER 2023-02-23 13:42 | Outpatient (CLI) | payer MEDICARE, OTHER | END 2023-02-23 23:59 | LOC: EMS 13:42 | PROVIDERS: ATTEND Internal Medicine | DX: Z51.5 Encounter for palliative care (principal); R53.1 Weakness; I48.91 Unspecified atrial fibrillation; E11.9 Type 2 diabetes mellitus without complications; I50.9 Heart failure, unspecified; F03.90 Unspecified dementia, unspecified severity, without behavioral disturbance, psychotic disturbance, mood disturbance, and anxiety; Z74.01 Bed confinement status | CPT/HCPCS: A0425; A0428 ==

== ENCOUNTER 2023-02-26 10:42 | Outpatient (CLI) | payer MEDICARE, OTHER ==
[2023-02-26 11:12] LABS: BUN - BLOOD UREA NITROGEN 14 mg/dL (6-20); CALCIUM 8.8 mg/dL (8.5-10.3); CARBON DIOXIDE - CO2 32 mmol/L (21-32); CHLORIDE 95 mmol/L (101-111); CREATININE 0.7 mg/dL (0.6-1.2); DIGOXIN 0.4 ng/mL; GFR - MDRD 109 (>89); GLUCOSE 206 mg/dL (70-100); MAGNESIUM 1.5 mg/dL (1.7-2.8); POTASSIUM 4.2 mmol/L (3.5-5.0); SODIUM 139 mmol/L (135-145)
== END 2023-02-26 10:43 | disposition home or self-care (01) ==
LOC: LAB 10:42
PROVIDERS: ATTEND Registered Nurse
DX: I10 Essential (primary) hypertension (principal); I48.20 Chronic atrial fibrillation, unspecified; R79.0 Abnormal level of blood mineral
CPT/HCPCS: 36415; 80048; 80162; 83735

== ENCOUNTER 2023-03-02 08:00 | Outpatient (CLI) | payer MEDICARE, OTHER ==
[2023-03-02 15:45] LABS: CALCIUM 9.5 mg/dL (8.5-10.3); CREATININE 0.7 mg/dL (0.6-1.3); MAGNESIUM 1.4 mg/dL (1.7-2.3); POTASSIUM 4.2 mmol/L (3.5-4.5)
== END 2023-03-02 23:59 | disposition home or self-care (01) ==
LOC: LAB.R 08:00
PROVIDERS: ATTEND Registered Nurse
DX: I10 Essential (primary) hypertension (principal); R79.0 Abnormal level of blood mineral
CPT/HCPCS: 80048; 83735

== ENCOUNTER 2023-03-05 08:00 | Outpatient (CLI) | payer MEDICARE, OTHER ==
[2023-03-05 16:08] LABS: DIGOXIN 0.9 ng/mL
== END 2023-03-05 23:59 | disposition home or self-care (01) ==
LOC: LAB.R 08:00
PROVIDERS: ATTEND Registered Nurse
DX: Z51.81 Encounter for therapeutic drug level monitoring (principal); Z79.899 Other long term (current) drug therapy
CPT/HCPCS: 36415; 80162

== ENCOUNTER 2023-03-18 15:43 | Outpatient (CLI) | payer MEDICARE, OTHER ==
[2023-03-18 16:07] LABS: BUN - BLOOD UREA NITROGEN 21 mg/dL (6-20); CALCIUM 9.5 mg/dL (8.5-10.3); CARBON DIOXIDE - CO2 36 mmol/L (21-32); CHLORIDE 99 mmol/L (101-111); CREATININE 0.8 mg/dL (0.6-1.3); GFR - MDRD 93 (>89); GLUCOSE 130 mg/dL (74-104); MAGNESIUM 1.4 mg/dL (1.7-2.3); POTASSIUM 4.3 mmol/L (3.5-4.5); SODIUM 140 mmol/L (135-145)
== END 2023-03-18 15:44 | disposition home or self-care (01) ==
LOC: LAB.R 15:43
PROVIDERS: ATTEND Registered Nurse
DX: I10 Essential (primary) hypertension (principal); I48.20 Chronic atrial fibrillation, unspecified; R79.0 Abnormal level of blood mineral
CPT/HCPCS: 80048; 80162; 83735

== ENCOUNTER 2023-03-29 17:59 | Outpatient (CLI) | payer MEDICARE, OTHER | END 2023-03-29 23:59 | disposition critical access hospital (66) | LOC: EMS 17:59 | DX: E11.65 Type 2 diabetes mellitus with hyperglycemia (principal); Z79.4 Long term (current) use of insulin | CPT/HCPCS: A0425; A0429 ==

== ENCOUNTER 2023-03-29 18:17 | Emergency (ER) | payer MEDICARE, OTHER ==
[2023-03-29] MEDS ORDERED: SODIUM CHLORIDE 0.9% 1,000 ML IV STA (18:23)
[2023-03-29] MEDS ORDERED: INSULIN REGULAR HUMAN 300 UNIT/3 ML VIAL IVP STA (18:23)
--- NOTE | 2023-03-29 18:24 | ED Physician Documentation ---
History of Present Illness - Stated complaint Stated Complaint: HIGH BLOOD SUGAR - History obtained from History obtained from: Patient, EMS - Additonal information Additional information: 77-year-old gentleman with dementia presents by ambulance for the evaluation of hyperglycemia. Reportedly his usually preps his insulin for him. He does not know what kind but according to most recent discharge summary from a month ago he is on a lispro sliding scale and metformin. They tried giving him his insulin a few times tonight but something was wrong, unclear what and the medication was not going in and now his blood sugar is high. He feels medically fine, just frustrated that he is here. The is not here on initial evaluation but EMS tells me that she is on the way. PD PAST MEDICAL HISTORY - Past Medical History Cardiovascular: Hypertension, High cholesterol, [place], Atrial fibrillation Respiratory: None Neuro: Dementia, Seizure disorder Endocrine/Autoimmune: Type 2 diabetes GI: None : None HEENT: Macular degeneration Psych: None Musculoskeletal: None Derm: None - Past Surgical History Past Surgical History: Yes Ortho: Rotator cuff repair Cardiovascular: Coronary stent - Present Medications Home Medications: Ambulatory Orders Medication Instructions Recorded Confirmed Aspirin [Aspir 81] 81 mg PO DAILY 06/07/14 02/19/23 Gabapentin [Neurontin] 200 mg PO BID 03/21/20 02/19/23 Losartan [Cozaar] 25 mg PO DAILY 03/21/20 02/19/23 Metformin HCl [Metformin HCl ER] 1,000 mg PO BID 03/21/20 02/19/23 Apixaban [Eliquis] 5 mg PO BID #60 tablet 03/22/20 02/19/23 Ergocalciferol (Vitamin D2) 1,250 mcg PO Q7D 01/23/23 02/19/23 [Drisdol] [place]-3S/Dha/Epa/Fish Oil [Fish 1 each PO BID 01/23/23 02/19/23 Oil 1,200 mg Softgel] Donepezil HCl [Aricept] 20 mg PO DAILY PM 02/19/23 02/19/23 Acetaminophen [Tylenol] 500 mg PO Q4-6H PRN 02/20/23 02/20/23 Levetiracetam [Keppra] 1,500 mg PO BID 02/20/23 02/20/23 Digoxin [Lanoxin] 125 mcg PO DAILY #30 tab 02/22/23 Furosemide [Lasix] 20 mg PO DAILY #30 tab 02/22/23 HYDROcod/ACETAM 5/325 [[place] 5/325] 1 tab PO Q12H PRN #6 tab 02/22/23 Insulin Lispro [Humalog Kwikpen 1 - 9 unit SUBQ 02/22/23 U-100] 0800,1200,1700,2100 #1 ea Magnesium Oxide [Mag Ox] 400 mg PO DAILY #30 tab 02/22/23 Metoprolol Succinate [Toprol Xl] 25 mg PO BID #30 tab 02/22/23 Midodrine [ProAmatine] 2.5 mg PO TIDWM #90 tab 02/22/23 Spironolactone [Aldactone] 25 mg PO 1200 #30 tab 02/22/23 - Allergies Allergies/Adverse Reactions: Allergies Allergy/AdvReac Type Severity Reaction Status Date / Time No Known Drug Allergies Allergy Verified 03/29/23 18:22 - Social History Does the pt smoke?: No Smoking Status: Never smoker Does the pt drink ETOH?: Yes Does the pt have substance abuse?: No - Immunizations Immunizations are current?: No Immunizations: TDAP current <10years - POLST Patient has POLST: Yes POLST Status: DNR PD ED PE NORMAL - Vitals Vital signs reviewed: Yes - General General: No acute distress, Other (Mild memory difficulties) - Cardiac Cardiac: RRR, No murmur - Respiratory Respiratory: No respiratory distress, Clear bilaterally - Abdomen Abdomen: Non tender - Psych Psych: Normal mood, Normal affect Results - Vitals Vitals: Vital Signs - 24 hr 03/29/23 03/29/23 18:22 18:26 Temperature 36.8 C 36.8 C Heart Rate 74 74 Respiratory 16 16 Rate Blood Pressure 149/76 H 149/76 H O2 Saturation 100 100 Oxygen O2 Source Room air - Labs Labs: Laboratory Tests 03/29/23 03/29/23 03/29/23 18:44 18:44 18:44 WBC 5.5 RBC 3.96 L Hgb 11.5 L Hct 35.8 L MCV 90.4 MCH 29.0 MCHC 32.1 RDW 16.4 H Plt Count 134 MPV 9.2 Neut # (Auto) 2.5 Lymph # (Auto) 2.2 [place] # (Auto) 0.1 Eos # (Auto) 0.6 Baso # (Auto) 0.0 Absolute Nucleated RBC 0.00 Nucleated RBC % 0.0 VBG pH 7.336 VBG pCO2 65.4 H VBG pO2 26.0 VBG HCO3 34.2 H VBG Total CO2 36.2 H VBG O2 Saturation 41.8 L VBG Base Excess 6.4 H Sodium 137 Potassium 3.7 Chloride 96 L Carbon Dioxide 36 H Anion Gap 5.0 L BUN 20 Creatinine 0.7 Estimated GFR (MDRD) 109 Glucose 451 H POC Whole Bld Glucose Calcium 8.9 Phosphorus 2.6 Magnesium 1.2 L Total Bilirubin 0.7 AST 18 ALT 17 Alkaline Phosphatase 122 H Total Protein 6.6 Albumin 4.1 Globulin 2.5 Albumin/Globulin Ratio 1.6 Serum Ketones NEGATIVE 03/29/23 19:35 WBC RBC Hgb Hct MCV MCH MCHC RDW Plt Count MPV Neut # (Auto) Lymph # (Auto) [place] # (Auto) Eos # (Auto) Baso # (Auto) Absolute Nucleated RBC Nucleated RBC % VBG pH VBG pCO2 VBG pO2 VBG HCO3 VBG Total CO2 VBG O2 Saturation VBG Base Excess Sodium Potassium Chloride Carbon Dioxide Anion Gap BUN Creatinine Estimated GFR (MDRD) Glucose POC Whole Bld Glucose 335 H Calcium Phosphorus Magnesium Total Bilirubin AST ALT Alkaline Phosphatase Total Protein Albumin Globulin Albumin/Globulin Ratio Serum Ketones PD Medical Decision Making - ED course ED course: The arrived and admits that his blood glucose control is chronically poor. On a good day he is blood sugar is down in the 200s. His current insulin regimen is 7 units of Lantus in the morning and then a sliding scale of short acting with meals which the patient often refuses. agrees that he does not appear ill and has had no specific complaints of illness. For some reason she was unable to get him to take his insulin tonight. She was gone for a few hours so unclear if he also ate something he should not have. There is no evidence of DKA. CBC shows modest anemia, chronic. No acidosis on VBG, CMP unremarkable save for hyperglycemia and negative serum ketones. U he was administered 1 L of IV fluids and 8 units of regular insulin here with improvement in his blood glucose down to 335. Departure - Departure Disposition: 01 Home, Self Care Clinical Impression: Uncontrolled type 2 diabetes mellitus Qualifiers: Glycemic state: with hyperglycemia Qualified Code(s): E11.65 - Type 2 diabetes mellitus with hyperglycemia Condition: Good Record reviewed to determine appropriate education?: Yes Instructions: ED Hyperglycemia Diabetic Comments: Recommend you increase your dose of Lantus to at least 10 units in the morning, may need to go up from there if persistently blood sugars are over 200. Follow- up with your primary care physician, consider endocrinology referral and potential for insulin pump if appropriate. Return for new or worsening symptoms.
[2023-03-29 18:33] VITALS: O2SAT 100
[2023-03-29 18:49] LABS: BASOPHILS % (AUTO) 0.5 %; EOSINOPHILS # (AUTO) 0.6 10^3/uL (0.0-0.7); EOSINOPHILS % (AUTO) 11.6 %; HCT - HEMATOCRIT 35.8 % (42.0-52.0); HGB - HEMOGLOBIN 11.5 g/dL (14.0-18.0); LYMPHOCYTES # (AUTO) 2.2 10^3/uL (1.5-3.5); LYMPHOCYTES % (AUTO) 40.3 %; MEAN CORPUSCULAR HGB CONC 32.1 g/dL (32.0-36.0); MEAN CORPUSCULAR VOLUME 90.4 fL (80.0-94.0); MEAN PLATELET VOLUME 9.2 fL (7.4-11.4); MONOCYTES # (AUTO) 0.1 10^3/uL (0.0-1.0); MONOCYTES % (AUTO) 1.6 %; NEUTROPHILS # (AUTO) 2.5 10^3/uL (1.5-6.6); PLT - PLATELET COUNT 134 10^3/uL (130-450); RED BLOOD COUNT 3.96 10^6/uL (4.70-6.10); RED CELL DISTRIBUTION WIDTH 16.4 % (12.0-15.0); WHITE BLOOD COUNT 5.5 x10^3/uL (4.8-10.8)
[2023-03-29 18:54] LABS: VBG BASE EXCESS 6.4 mmol/L (-2 - +2); VBG HCO3 34.2 mmol/L (23-28); VBG PCO2 65.4 mmHg (41-51); VBG PH 7.336 (7.31-7.41); VBG TOTAL CO2 36.2 mmol/L (24-29)
[2023-03-29 18:55] LABS: VBG OXYGEN SATURATION 41.8 % (60-80)
[2023-03-29 19:07] LABS: ALBUMIN 4.1 g/dL (3.2-5.5); ALBUMIN/GLOBULIN RATIO 1.6 (1.0-2.2); ALKALINE PHOSPHATASE 122 IU/L (42-121); ALT ALANINE AMINOTRANSFERASE 17 IU/L (10-60); AST ASPARTATE AMINOTRANSFERASE 18 IU/L (10-42); BILIRUBIN,TOTAL 0.7 mg/dL (0.2-1.0); BUN - BLOOD UREA NITROGEN 20 mg/dL (6-20); CALCIUM 8.9 mg/dL (8.5-10.3); CARBON DIOXIDE - CO2 36 mmol/L (21-32); CHLORIDE 96 mmol/L (101-111); CREATININE 0.7 mg/dL (0.6-1.3); GFR - MDRD 109 (>89); GLUCOSE 451 mg/dL (74-104); MAGNESIUM 1.2 mg/dL (1.7-2.3); PHOSPHORUS 2.6 mg/dL (2.5-5.0); POTASSIUM 3.7 mmol/L (3.5-4.5); SODIUM 137 mmol/L (135-145); TOTAL PROTEIN 6.6 g/dL (6.4-8.9)
[2023-03-29 19:12] LABS: KETONES, SERUM (ACETEST) NEGATIVE (NEGATIVE)
[2023-03-29 20:12] VITALS: BP 147/87
== END 2023-03-29 20:07 | disposition home or self-care (01) ==
LOC: EDUNIT# → ED 18:17
DX: E11.65 Type 2 diabetes mellitus with hyperglycemia (principal); Z79.4 Long term (current) use of insulin; Z79.84 Long term (current) use of oral hypoglycemic drugs; Z66 Do not resuscitate
CPT/HCPCS: 36415; 80053; 82009; 82803; 83735; 84100; 85025; 99283; 99284; J1815

== ENCOUNTER 2023-04-28 12:14 | Emergency (ER) | payer MEDICARE, OTHER ==
[2023-04-28 12:47] VITALS: BP 107/57; O2SAT 99
--- NOTE | 2023-04-28 13:05 | ED Physician Documentation ---
PD HPI SKIN - Stated complaint Stated Complaint: LT LEG PX,SWELLING - Chief complaint Chief Complaint: Wound - History obtained from History obtained from: Patient, Family - Additional information Additional information: 77-year-old male with history of congestive heart failure, diabetes presents for wound evaluation. History obtained with patient and at bedside. states that patient receives regular wound care for ulcers on his lower extremities. She checked the bandages today and they appear to be swollen with what appeared to be pus. He does not have wound care at the house until tomorrow and she is concerned there may be an underlying infection. At home it seems to be very painful. She gave him Tylenol and gabapentin prior to arrival. Review of Systems Constitutional: denies: Fever, Chills GI: denies: Abdominal Pain, Nausea, Vomiting : denies: Dysuria, Frequency, Hesitancy Skin: reports: Lesions. denies: Rash, Laceration (s) Musculoskeletal: reports: Extremity pain. denies: Neck pain, Back pain, Joint pain, Extremity swelling PD PAST MEDICAL HISTORY - Past Medical History Past Medical History: Yes Cardiovascular: Hypertension, High cholesterol, [place], Atrial fibrillation Respiratory: None Neuro: Dementia, Seizure disorder Endocrine/Autoimmune: Type 2 diabetes GI: None : None HEENT: Macular degeneration Psych: None Musculoskeletal: None Derm: None - Past Surgical History Past Surgical History: Yes Ortho: Rotator cuff repair Cardiovascular: Coronary stent - Present Medications Home Medications: Ambulatory Orders Medication Instructions Recorded Confirmed Aspirin [Aspir 81] 81 mg PO DAILY 06/07/14 02/19/23 Gabapentin [Neurontin] 200 mg PO BID 03/21/20 02/19/23 Losartan [Cozaar] 25 mg PO DAILY 03/21/20 02/19/23 Metformin HCl [Metformin HCl ER] 1,000 mg PO BID 03/21/20 02/19/23 Apixaban [Eliquis] 5 mg PO BID #60 tablet 03/22/20 02/19/23 Ergocalciferol (Vitamin D2) 1,250 mcg PO Q7D 01/23/23 02/19/23 [Drisdol] [place]-3S/Dha/Epa/Fish Oil [Fish 1 each PO BID 01/23/23 02/19/23 Oil 1,200 mg Softgel] Donepezil HCl [Aricept] 20 mg PO DAILY PM 02/19/23 02/19/23 Acetaminophen [Tylenol] 500 mg PO Q4-6H PRN 02/20/23 02/20/23 Levetiracetam [Keppra] 1,500 mg PO BID 02/20/23 02/20/23 Digoxin [Lanoxin] 125 mcg PO DAILY #30 tab 02/22/23 Furosemide [Lasix] 20 mg PO DAILY #30 tab 02/22/23 HYDROcod/ACETAM 5/325 [[place] 5/325] 1 tab PO Q12H PRN #6 tab 02/22/23 Insulin Lispro [Humalog Kwikpen 1 - 9 unit SUBQ 02/22/23 U-100] 0800,1200,1700,2100 #1 ea Magnesium Oxide [Mag Ox] 400 mg PO DAILY #30 tab 02/22/23 Metoprolol Succinate [Toprol Xl] 25 mg PO BID #30 tab 02/22/23 Midodrine [ProAmatine] 2.5 mg PO TIDWM #90 tab 02/22/23 Spironolactone [Aldactone] 25 mg PO 1200 #30 tab 02/22/23 - Allergies Allergies/Adverse Reactions: Allergies Allergy/AdvReac Type Severity Reaction Status Date / Time No Known Drug Allergies Allergy Verified 03/29/23 18:22 - Social History Does the pt smoke?: No Smoking Status: Never smoker Does the pt drink ETOH?: Yes Does the pt have substance abuse?: No - Immunizations Immunizations are current?: No Immunizations: TDAP current <10years - POLST Patient has POLST: Yes POLST Status: DNR PD ED PE NORMAL - Vitals Vital signs reviewed: Yes - General General: Alert and oriented X 3, No acute distress, Other (debilitated, appears chronically unwell) - HEENT HEENT: Atraumatic - Neck Neck: Supple, no meningeal sign - Cardiac Cardiac: RRR - Respiratory Respiratory: No respiratory distress, Clear bilaterally - Abdomen Abdomen: Soft, Non tender, Non distended - Derm Derm: Warm and dry, Other (ulcerated lesions anterior L mckeon, margins clear. No warmth, no fluctuance, no drainage) Results - Vitals Vitals: Vital Signs - 24 hr 04/28/23 12:37 Temperature 36.2 C L Heart Rate 80 Respiratory 15 Rate Blood Pressure 107/57 L O2 Saturation 99 Oxygen O2 Source Room air PD Medical Decision Making - ED course Complexity details: re-evaluated patient, considered differential, d/w patient, d/w family ED course: Patient presenting for wound check of the lesions on his left leg. He presented wearing to hydrocolloid bandages that did appear to have liquid underneath them, however when these bandages were removed there were moist sponges underneath overlying the ulcer. When the dressing was removed the ulcers were clean, margins were intact, there is no purulent material, fluctuance, surrounding erythema to suggest infection. Leg is no longer painful, he has full range of motion, pain was well controlled with Tylenol and gabapentin. inspected the ulcers and stated that they did appear to be healing well and did not appear to be infected. After inspecting the wounds in the emergency department is happy with her appearance and does not desire any further interventions. The wounds were redressed, he has a home health care appointment tomorrow where his wound will be redressed in his usual bandages. Departure - Departure Disposition: 01 Home, Self Care Clinical Impression: Visit for wound check Condition: Stable Instructions: ED Burn Wound Check No Infec Comments: CONTINUE TO FOLLOW WITH WOUND CARE/HOME HEALTH YOU NORMALLY WOULD. ELEVATE THE LEGS AT REST TO HELP WITH SWELLING. Forms: PCP List Discharge Date/Time: 04/28/23 13:21
== END 2023-04-28 13:21 | disposition home or self-care (01) ==
LOC: ED 12:14
DX: L97.929 Non-pressure chronic ulcer of unspecified part of left lower leg with unspecified severity (principal); L97.919 Non-pressure chronic ulcer of unspecified part of right lower leg with unspecified severity
CPT/HCPCS: 99281; 99282

== ENCOUNTER 2023-05-18 10:56 | Emergency (ER) | payer MEDICARE, OTHER ==
[2023-05-18 11:24] VITALS: BP 96/49; O2SAT 99
== END 2023-05-18 12:06 | disposition left against medical advice (07) ==
LOC: ED 10:56
DX: Z53.21 Procedure and treatment not carried out due to patient leaving prior to being seen by health care provider (principal)

== ENCOUNTER 2023-05-18 16:06 | Emergency (ER) | payer MEDICARE, OTHER ==
[2023-05-18 17:05] LABS: BASOPHILS # (AUTO) 0.1 10^3/uL (0.0-0.1); BASOPHILS % (AUTO) 0.8 %; EOSINOPHILS # (AUTO) 0.4 10^3/uL (0.0-0.7); EOSINOPHILS % (AUTO) 5.7 %; HCT - HEMATOCRIT 36.6 % (42.0-52.0); HGB - HEMOGLOBIN 11.8 g/dL (14.0-18.0); LYMPHOCYTES % (AUTO) 31.1 %; MEAN CORPUSCULAR HGB CONC 32.2 g/dL (32.0-36.0); MEAN CORPUSCULAR VOLUME 89.9 fL (80.0-94.0); MEAN PLATELET VOLUME 9.6 fL (7.4-11.4); MONOCYTES # (AUTO) 0.3 10^3/uL (0.0-1.0); MONOCYTES % (AUTO) 5.1 %; NEUTROPHILS # (AUTO) 3.7 10^3/uL (1.5-6.6); PLT - PLATELET COUNT 164 10^3/uL (130-450); RED BLOOD COUNT 4.07 10^6/uL (4.70-6.10); RED CELL DISTRIBUTION WIDTH 14.8 % (12.0-15.0); WHITE BLOOD COUNT 6.5 x10^3/uL (4.8-10.8)
[2023-05-18 17:17] LABS: CALCIUM 9.4 mg/dL (8.5-10.3); CREATININE 0.9 mg/dL (0.6-1.3); MAGNESIUM 1.1 mg/dL (1.7-2.3); POTASSIUM 4.1 mmol/L (3.5-4.5)
--- NOTE | 2023-05-18 17:52 | ED Physician Documentation ---
History of Present Illness - Stated complaint Stated Complaint: BILAT HAND SWELLING/PX - Chief complaint Chief Complaint: General - Additonal information Additional information: 77-year-old with a history of atrial fibrillation anticoagulated on Eliquis, hypertension and diabetes on insulin who just started glimepiride this week presents emergency department after he had complained of bilateral hand swelling and pain this morning. He has had no fevers. Denies chest pain or shortness of air. No abdominal pain vomiting or diarrhea. His reports that due to poor diabetic control his PCP initiated him on glimepiride this week which he has taken only 4 doses of. She said that he was complaining that both his hands hurt and she noticed that they were mildly swollen though there was no erythema or drainage noted. Review of Systems Constitutional: denies: Fever, Chills Throat: reports: Reviewed and negative Cardiac: reports: Reviewed and negative Respiratory: reports: Reviewed and negative GI: reports: Reviewed and negative Musculoskeletal: reports: Extremity swelling PD PAST MEDICAL HISTORY - Past Medical History Past Medical History: Yes Cardiovascular: Hypertension, High cholesterol, [place], Atrial fibrillation Respiratory: None Neuro: Dementia, Seizure disorder Endocrine/Autoimmune: Type 2 diabetes GI: None : None HEENT: Macular degeneration Psych: None Musculoskeletal: None Derm: None - Past Surgical History Past Surgical History: Yes Ortho: Rotator cuff repair Cardiovascular: Coronary stent - Present Medications Home Medications: Ambulatory Orders Medication Instructions Recorded Confirmed Aspirin [Aspir 81] 81 mg PO DAILY 06/07/14 02/19/23 Gabapentin [Neurontin] 200 mg PO BID 03/21/20 02/19/23 Losartan [Cozaar] 25 mg PO DAILY 03/21/20 02/19/23 Metformin HCl [Metformin HCl ER] 1,000 mg PO BID 03/21/20 02/19/23 Apixaban [Eliquis] 5 mg PO BID #60 tablet 03/22/20 02/19/23 Ergocalciferol (Vitamin D2) 1,250 mcg PO Q7D 01/23/23 02/19/23 [Drisdol] [place]-3S/Dha/Epa/Fish Oil [Fish 1 each PO BID 01/23/23 02/19/23 Oil 1,200 mg Softgel] Donepezil HCl [Aricept] 20 mg PO DAILY PM 02/19/23 02/19/23 Acetaminophen [Tylenol] 500 mg PO Q4-6H PRN 02/20/23 02/20/23 Levetiracetam [Keppra] 1,500 mg PO BID 02/20/23 02/20/23 Digoxin [Lanoxin] 125 mcg PO DAILY #30 tab 02/22/23 Furosemide [Lasix] 20 mg PO DAILY #30 tab 02/22/23 HYDROcod/ACETAM 5/325 [[place] 5/325] 1 tab PO Q12H PRN #6 tab 02/22/23 Insulin Lispro [Humalog Kwikpen 1 - 9 unit SUBQ 02/22/23 U-100] 0800,1200,1700,2100 #1 ea Magnesium Oxide [Mag Ox] 400 mg PO DAILY #30 tab 02/22/23 Metoprolol Succinate [Toprol Xl] 25 mg PO BID #30 tab 02/22/23 Midodrine [ProAmatine] 2.5 mg PO TIDWM #90 tab 02/22/23 Spironolactone [Aldactone] 25 mg PO 1200 #30 tab 02/22/23 05/14/23 Glimepiride 1 tab PO DAILY 05/14/23 05/14/23 - Allergies Allergies/Adverse Reactions: Allergies Allergy/AdvReac Type Severity Reaction Status Date / Time No Known Drug Allergies Allergy Verified 05/18/23 16:23 - Social History Does the pt smoke?: No Smoking Status: Never smoker Does the pt drink ETOH?: Yes Does the pt have substance abuse?: No - Immunizations Immunizations are current?: No Immunizations: TDAP current <10years - POLST Patient has POLST: Yes POLST Status: DNR PD ED PE NORMAL - General General: No acute distress, Well developed/nourished. No: Alert and oriented X 3 (Confusion in the setting of dementia) - HEENT HEENT: Atraumatic - Respiratory Respiratory: No respiratory distress, Clear bilaterally - Abdomen Abdomen: Normal bowel sounds, Soft - Extremities Extremities: No: No edema (Mild edema of both hands mostly of the fingers. Brisk cap refill warm extremities. Neurovascularly intact. 2+ radial pulse each side. Much of the swelling dissipates in the palm bilaterally.) Results - Vitals Vitals: Vital Signs - 24 hr 05/18/23 16:18 Temperature 36.4 C L Heart Rate 85 Respiratory 20 Rate Blood Pressure 116/81 H O2 Saturation 100 Oxygen O2 Source Room air - Labs Labs: Laboratory Tests 05/18/23 05/18/23 16:56 16:56 WBC 6.5 RBC 4.07 L Hgb 11.8 L Hct 36.6 L MCV 89.9 MCH 29.0 MCHC 32.2 RDW 14.8 Plt Count 164 MPV 9.6 Neut # (Auto) 3.7 Lymph # (Auto) 2.0 [place] # (Auto) 0.3 Eos # (Auto) 0.4 Baso # (Auto) 0.1 Absolute Nucleated RBC 0.00 Nucleated RBC % 0.0 Sodium 135 Potassium 4.1 Chloride 93 L Carbon Dioxide 35 H Anion Gap 7.0 BUN 37 H Creatinine 0.9 Estimated GFR (MDRD) 81 L Glucose 408 H Calcium 9.4 Magnesium 1.1 L PD Medical Decision Making - ED course Complexity details: d/w patient, d/w family ED course: 77-year-old male who has a history of A-fib anticoagulated on Eliquis, hypertension and diabetes presents to the ER for evaluation of bilateral hand pain and mild swelling of the digits. Was noted this morning. Clinically there is no fever erythema or induration to suggest a cellulitis. It would also be unlikely given the bilateral nature. Again he is anticoagulated and clinically I am not suspicious for thromboembolic event given the bilateral nature and the presence of anticoagulation. He is neurovascularly intact. CBC and electrolytes were obtained. Per my interpretation he has mildly elevated BUN which is unchanged from baseline. He has chronic hypomagnesemia which I do not think is contributing to the symptoms. He also has an elevated blood glucose. His admits that she did not give him his insulin or the glimepiride today as she was concerned the glimepiride could be contributing to the hand swelling. Given no findings suggest infection, thromboembolic event, heart failure I am going to discharge the patient. The etiology of the hand swelling is not clear though the timing coincides with the glimepiride and I advised the patient to discuss this with her physician on Saturday for which there is already a scheduled appointment. Patient is discharged home in stable condition with usual emergent return precautions discussed. Departure - Departure Disposition: 01 Home, Self Care Clinical Impression: Bilateral hand swelling, History of diabetes mellitus Condition: Stable Record reviewed to determine appropriate education?: Yes Comments: Alfred was seen today because of swelling in both his hands. As discussed at the bedside clinically this does not fit the picture of having cellulitis or infection. It is also extremely unlikely that this is due to a blood clot in his extremities as he is already anticoagulated and this swelling has included both arms. He does not appear to have signs of overwhelming heart failure either. His labs today did not show any new changes from his known baseline. The timing of the hand swelling does coincide with the initiation of the glimepiride. However, it is an unlikely adverse event to this medication. I encourage you to discuss this ED visit with his physician on Saturday at the appointment already scheduled. In the interim he can continue his usual care and medications. He may benefit from keeping his hands slightly elevated. Return to the ER for any new or worsening symptoms
[2023-05-18 18:18] VITALS: BP 123/75; O2SAT 98
== END 2023-05-18 18:12 | disposition home or self-care (01) ==
LOC: ED 16:06
DX: M79.89 Other specified soft tissue disorders (principal); I48.91 Unspecified atrial fibrillation; Z79.01 Long term (current) use of anticoagulants; E11.9 Type 2 diabetes mellitus without complications; Z79.4 Long term (current) use of insulin
CPT/HCPCS: 36415; 80048; 83735; 85025; 99283

== ENCOUNTER 2023-08-15 12:24 | Outpatient (CLI) | payer MEDICARE, OTHER | END 2023-08-15 12:25 | disposition EMS.NT | LOC: EMS 12:24 | DX: E11.65 Type 2 diabetes mellitus with hyperglycemia (principal); T38.3X6A Underdosing of insulin and oral hypoglycemic [antidiabetic] drugs, initial encounter; Z91.148 Patient's other noncompliance with medication regimen for other reason; R53.1 Weakness; R53.83 Other fatigue; Z79.4 Long term (current) use of insulin ==

== ENCOUNTER 2023-09-07 09:18 | Outpatient (CLI) | payer MEDICARE, OTHER | END 2023-09-07 23:59 | disposition EMS.NT | LOC: EMS 09:18 | DX: Z03.89 Encounter for observation for other suspected diseases and conditions ruled out (principal); Z79.01 Long term (current) use of anticoagulants ==

== ENCOUNTER 2023-09-28 04:24 | Outpatient (CLI) | payer MEDICARE, OTHER | END 2023-09-28 23:59 | disposition EMS.NT | LOC: EMS 04:24 | DX: Z03.89 Encounter for observation for other suspected diseases and conditions ruled out (principal) ==

== ENCOUNTER 2023-09-28 21:34 | Outpatient (CLI) | payer MEDICARE, OTHER | END 2023-09-28 21:35 | disposition critical access hospital (66) | LOC: EMS 21:34 | DX: E11.65 Type 2 diabetes mellitus with hyperglycemia (principal); Z79.4 Long term (current) use of insulin; R41.0 Disorientation, unspecified; I48.91 Unspecified atrial fibrillation | CPT/HCPCS: A0425; A0427 ==

== ENCOUNTER 2023-09-28 21:48 | Emergency (ER) | payer MEDICARE, OTHER ==
[2023-09-28 22:18] LABS: VBG HCO3 30.1 mmol/L (23-28); VBG PCO2 54.9 mmHg (41-51); VBG PH 7.357 (7.31-7.41); VBG PO2 34.3 mmHg (25-47); VBG TOTAL CO2 31.8 mmol/L (24-29)
[2023-09-28 22:19] LABS: VBG BASE EXCESS 3.5 mmol/L (-2 - +2)
[2023-09-28 22:20] LABS: BASOPHILS # (AUTO) 0.1 10^3/uL (0.0-0.1); BASOPHILS % (AUTO) 0.9 %; EOSINOPHILS # (AUTO) 0.1 10^3/uL (0.0-0.7); EOSINOPHILS % (AUTO) 2.5 %; HCT - HEMATOCRIT 36.2 % (42.0-52.0); HGB - HEMOGLOBIN 11.2 g/dL (14.0-18.0); LYMPHOCYTES # (AUTO) 1.4 10^3/uL (1.5-3.5); LYMPHOCYTES % (AUTO) 24.1 %; MEAN CORPUSCULAR HEMOGLOBIN 29.1 pg (27.0-31.0); MEAN CORPUSCULAR HGB CONC 30.9 g/dL (32.0-36.0); MEAN PLATELET VOLUME 10.1 fL (7.4-11.4); MONOCYTES # (AUTO) 0.4 10^3/uL (0.0-1.0); MONOCYTES % (AUTO) 7.1 %; NEUTROPHILS # (AUTO) 3.7 10^3/uL (1.5-6.6); PLT - PLATELET COUNT 201 10^3/uL (130-450); RED BLOOD COUNT 3.85 10^6/uL (4.70-6.10); RED CELL DISTRIBUTION WIDTH 13.9 % (12.0-15.0); VBG OXYGEN SATURATION 60.3 % (60-80); WHITE BLOOD COUNT 5.7 x10^3/uL (4.8-10.8)
[2023-09-28 22:30] LABS: KETONES, SERUM (ACETEST) NEGATIVE (NEGATIVE)
[2023-09-28 22:33] LABS: MAGNESIUM 1.2 mg/dL (1.7-2.3); PHOSPHORUS 3.6 mg/dL (2.5-5.0)
[2023-09-28 22:37] LABS: ALBUMIN 3.7 g/dL (3.2-5.5); ALBUMIN/GLOBULIN RATIO 1.3 (1.0-2.2); ALKALINE PHOSPHATASE 97 IU/L (42-121); ALT ALANINE AMINOTRANSFERASE 21 IU/L (10-60); AST ASPARTATE AMINOTRANSFERASE 22 IU/L (10-42); BILIRUBIN,TOTAL 1.6 mg/dL (0.2-1.0); BUN - BLOOD UREA NITROGEN 20 mg/dL (6-20); CALCIUM 9.3 mg/dL (8.5-10.3); CARBON DIOXIDE - CO2 30 mmol/L (21-32); CHLORIDE 92 mmol/L (101-111); CREATININE 0.9 mg/dL (0.6-1.3); GFR - MDRD 81 (>89); GLUCOSE 561 mg/dL (74-104); LIPASE < 10 U/L (11-82); POTASSIUM 4.2 mmol/L (3.5-4.5); SODIUM 131 mmol/L (135-145); TOTAL PROTEIN 6.5 g/dL (6.4-8.9)
--- NOTE | 2023-09-28 22:41 | ED Physician Documentation ---
PD HPI ALTERED MENTAL STATUS - Stated complaint Stated Complaint: AMS - Chief complaint Chief Complaint: Neuro - History obtained from History obtained from: Patient, Family ( of patient) - Additional information Additional information: Patient is amnestic for event but able to provide some HPI as well as ROS. HPI for event is from . Patient and came home from dinner tonight. says the dinner was uneventful but shortly after returning home, patient suddenly became confused, making odd statements such as saying he wanted to go out to eat (when they had just returned from dinner). This was at approximately 7 PM tonight. says patient's baseline is AAOx3 with mild forgetfulness; tonight was far off his baseline mental status. FSBS for EMS was over 500. says he has not been non-compliant with taking his insulin and checking his blood sugar Patient is calm, cooperative on my exam, answers questions with seeming accuracy but some hesitancy. Follows commands rapidly and appropriately. He is oriented x 3. Review of Systems Constitutional: denies: Fever, Chills, Sweats Cardiac: reports: Reviewed and negative Respiratory: reports: Reviewed and negative GI: reports: Reviewed and negative Neurologic: reports: Confused, Altered mental status. denies: Generalized weakness, Focal weakness, Numbness, Headache PD PAST MEDICAL HISTORY - Past Medical History Cardiovascular: Hypertension, High cholesterol, [place], Atrial fibrillation Respiratory: None Neuro: Dementia, Seizure disorder Endocrine/Autoimmune: Type 2 diabetes GI: None : None HEENT: Macular degeneration Psych: None Musculoskeletal: None Derm: None - Past Surgical History Past Surgical History: Yes Ortho: Rotator cuff repair Cardiovascular: Coronary stent - Present Medications Home Medications: Ambulatory Orders Medication Instructions Recorded Confirmed Aspirin [Aspir 81] 81 mg PO DAILY 06/07/14 02/19/23 Gabapentin [Neurontin] 200 mg PO BID 03/21/20 02/19/23 Losartan [Cozaar] 25 mg PO DAILY 03/21/20 02/19/23 Metformin HCl [Metformin HCl ER] 1,000 mg PO BID 03/21/20 02/19/23 Apixaban [Eliquis] 5 mg PO BID #60 tablet 03/22/20 02/19/23 Ergocalciferol (Vitamin D2) 1,250 mcg PO Q7D 01/23/23 02/19/23 [Drisdol] [place]-3S/Dha/Epa/Fish Oil [Fish 1 each PO BID 01/23/23 02/19/23 Oil 1,200 mg Softgel] Donepezil HCl [Aricept] 20 mg PO DAILY PM 02/19/23 02/19/23 Acetaminophen [Tylenol] 500 mg PO Q4-6H PRN 02/20/23 02/20/23 Levetiracetam [Keppra] 1,500 mg PO BID 02/20/23 02/20/23 Digoxin [Lanoxin] 125 mcg PO DAILY #30 tab 02/22/23 Furosemide [Lasix] 20 mg PO DAILY #30 tab 02/22/23 HYDROcod/ACETAM 5/325 [[place] 5/325] 1 tab PO Q12H PRN #6 tab 02/22/23 Insulin Lispro [Humalog Kwikpen 1 - 9 unit SUBQ 02/22/23 U-100] 0800,1200,1700,2100 #1 ea Magnesium Oxide [Mag Ox] 400 mg PO DAILY #30 tab 02/22/23 Metoprolol Succinate [Toprol Xl] 25 mg PO BID #30 tab 02/22/23 Midodrine [ProAmatine] 2.5 mg PO TIDWM #90 tab 02/22/23 Spironolactone [Aldactone] 25 mg PO 1200 #30 tab 02/22/23 05/14/23 Glimepiride 1 tab PO DAILY 05/14/23 05/14/23 Gentamicin Sulfate See Rx Instructions .ROUTE 07/17/23 .COMPLEX #30 gm Linezolid [Zyvox] 600 mg PO BID 10 Days #20 tablet 07/19/23 - Allergies Allergies/Adverse Reactions: Allergies Allergy/AdvReac Type Severity Reaction Status Date / Time No Known Drug Allergies Allergy Verified 09/28/23 21:53 - Social History Does the pt smoke?: No Smoking Status: Never smoker Does the pt drink ETOH?: Yes Does the pt have substance abuse?: No - Immunizations Immunizations are current?: No Immunizations: TDAP current <10years - POLST Patient has POLST: Yes POLST Status: DNR PD ED PE NORMAL - Vitals Vital signs reviewed: Yes - General General: Alert and oriented X 3, No acute distress, Well developed/nourished - HEENT HEENT: Atraumatic, PERRL, EOMI, Moist mucous membranes - Neck Neck: Supple, no meningeal sign - Respiratory Respiratory: No respiratory distress, Clear bilaterally - Abdomen Abdomen: Soft, Non tender - Back Back: No CVA TTP - Derm Derm: Normal color, Warm and dry - Extremities Extremities: No edema - Neuro Neuro: Alert and oriented X 3, field hand 2-12 intact, No motor deficit, No sensory deficit, Normal speech (quiet, occasionally hesitates with answers yet provides accurate answers; amnestic for period of AMS from earlier tonight) Eye Opening: Spontaneous Motor: Obeys Commands Verbal: Oriented GCS Score: 15 PD ED PE EXPANDED - Cardiac Cardiac: Regular Rate, Irregularly irregular NIHSS - Level of Consciousness Level of consciousness: (0) Alert, Keenly responsive LOC Questions: (0) Answers both Q's correct LOC Commands: (0) Performs both correctly - Gaze Best Gaze: (0) Normal - Visual Visual: (0) No loss - Facial Palsy Facial Palsy: (0) Normal, symmetrical movement - Motor Arms (both separate) Motor Arm (right): (0) No drift Motor Arm (left): (0) No drift - Motor Legs (both separate) Motor Leg (right): (0) No drift Motor Leg (left): (0) No drift - Limb Ataxia Limb Ataxia: (0) Absent - Sensory Sensory: (0) Normal - Best Language Best Language: (0) No aphasia - Dysarthria Dysarthria: (0) Normal - Extinction and Inattention (formally neg Extinction and inattention: (0) No abnormality - Total Score/Results Total Score/Result: 0 Results - Vitals Vitals: Vital Signs - 24 hr 09/28/23 09/28/23 09/28/23 21:54 21:59 23:44 Temperature 36.4 C L Heart Rate 82 60 64 Respiratory 17 16 16 Rate Blood Pressure 119/100 H 145/72 H O2 Saturation 96 98 99 09/29/23 09/29/23 01:00 02:26 Temperature Heart Rate 83 78 Respiratory 16 16 Rate Blood Pressure 137/80 H 135/83 H O2 Saturation 98 99 Oxygen O2 Source Room air - Labs Labs: Laboratory Tests 09/28/23 09/28/23 09/28/23 21:54 21:54 21:54 WBC 5.7 RBC 3.85 L Hgb 11.2 L Hct 36.2 L MCV 94.0 MCH 29.1 MCHC 30.9 L RDW 13.9 Plt Count 201 MPV 10.1 Neut # (Auto) 3.7 Lymph # (Auto) 1.4 L [place] # (Auto) 0.4 Eos # (Auto) 0.1 Baso # (Auto) 0.1 Absolute Nucleated RBC 0.00 Nucleated RBC % 0.0 VBG pH 7.357 VBG pCO2 54.9 H VBG pO2 34.3 VBG HCO3 30.1 H VBG Total CO2 31.8 H VBG O2 Saturation 60.3 VBG Base Excess 3.5 H Sodium 131 L Potassium 4.2 Chloride 92 L Carbon Dioxide 30 Anion Gap 9.0 BUN 20 Creatinine 0.9 Estimated GFR (MDRD) 81 L Glucose 561 H* POC Whole Bld Glucose Calcium 9.3 Phosphorus 3.6 Magnesium 1.2 L Total Bilirubin 1.6 H AST 22 ALT 21 Alkaline Phosphatase 97 Total Protein 6.5 Albumin 3.7 Globulin 2.8 Albumin/Globulin Ratio 1.3 Lipase < 10 L Urine Color Urine Clarity Urine pH Ur Specific [place] Urine Protein Urine Glucose (UA) Urine Ketones Urine Occult Blood Urine Nitrite Urine Bilirubin Urine Urobilinogen Ur Leukocyte Esterase Ur Microscopic Review Urine Culture Comments Serum Ketones NEGATIVE 09/29/23 09/29/23 09/29/23 00:07 00:23 01:25 WBC RBC Hgb Hct MCV MCH MCHC RDW Plt Count MPV Neut # (Auto) Lymph # (Auto) [place] # (Auto) Eos # (Auto) Baso # (Auto) Absolute Nucleated RBC Nucleated RBC % VBG pH VBG pCO2 VBG pO2 VBG HCO3 VBG Total CO2 VBG O2 Saturation VBG Base Excess Sodium Potassium Chloride Carbon Dioxide Anion Gap BUN Creatinine Estimated GFR (MDRD) Glucose POC Whole Bld Glucose 477 H 391 H Calcium Phosphorus Magnesium Total Bilirubin AST ALT Alkaline Phosphatase Total Protein Albumin Globulin Albumin/Globulin Ratio Lipase Urine Color YELLOW Urine Clarity CLEAR Urine pH 6.0 Ur Specific [place] 1.010 Urine Protein NEGATIVE Urine Glucose (UA) >=1000 H Urine Ketones NEGATIVE Urine Occult Blood TRACE-LYSE Urine Nitrite NEGATIVE Urine Bilirubin NEGATIVE Urine Urobilinogen 1 (NORMAL) Ur Leukocyte Esterase NEGATIVE Ur Microscopic Review NOT INDICATED Urine Culture Comments NOT INDICATED Serum Ketones - Rads (name of study) CTH Relevant Findings:: Prelim report reviewed, See rad report CTA head/neck Relevant Findings:: Prelim report reviewed, See rad report chest xray Relevant Findings:: Prelim report reviewed, See rad report PD Medical Decision Making - ED course Complexity details: reviewed results, re-evaluated patient, considered differential, d/w patient, d/w family ED course: Episode of AMS which appears to have resolved by the time of ED arrival. NIHSS s core of zero. No concerning/diagnostic findings on CTH including CTA head/neck. Hyperglycemia with 561 serum glucose on BMP, improved to 477 after 10 units IVP regular insulin and 1 liter NS and then 391 after another 10 units regular insulin and second liter of NS IV. Despite the hyperglycemia, there is no evidence of DKA: pH 7.38 on VBG, CO2 30 and AG 9 on BMP, and negative serum ketones. Good kidney function with BUN 20, creatinine 0.9, normal WBC (5.7). Results d/w patient and his . The cause of his episode of AMS is not apparent at this time; hyperglycemia alone would not account for this in absence of DKA and/or other electrolyte abnormalities , and there is no evidence of infectious cause. TIA remains on differential diagnosis. Return precautions are reviewed. Advised to contact PCP to arrange for follow- up/reevaluation, next available appointment. Departure - Departure Disposition: 01 Home, Self Care Clinical Impression: Hyperglycemia Altered mental status Qualifiers: Altered mental status type: delirium Qualified Code(s): R41.0 - Disorientation, unspecified Condition: Good Instructions: ED Confusion, ED Hyperglycemia Diabetic, ED Transient Ischemic Attack Comments: Your blood sugar was particularly high tonight in the emergency department. After a few doses of IV insulin, your blood sugar gradually improved to 390. While this is still very high, it is trending downwards, and you were given 1 last dose of (7 units) regular insulin through the IV prior to discharge. Obviously, the blood sugar should continue to improve after you are discharged home provided you adhere to a diabetic-appropriate diet. It is of paramount importance that you resume your prescribed insulin regimen and check your blood sugar on a regular basis as per your provider's instructions. The cause of your episode of confusion is not apparent at this time. Your high blood sugar alone would not account for the confusion. The CT scans of your head and neck were unremarkable; there were no findings on the studies that would explain your confusion. As we discussed, one possible explanation would be transient ischemic attack (TIA). A TIA is a stroke that resolves, typically within hours, and does not leave behind any evidence of a problem on any tests such as CT scans. Contact your primary care provider when the office is next open to arrange for the next available appointment for follow-up/reevaluation. Discharge Date/Time: 09/29/23 02:26
--- NOTE | 2023-09-28 22:56 | XRAY Report ---
PROCEDURE: Chest 1V INDICATIONS: AMS TECHNIQUE: One view of the chest was acquired. COMPARISON: None. FINDINGS: Surgical changes and devices: Prior chest plain film dated 02/19/2023.. Lungs and pleura: No pleural effusions or pneumothorax. Lungs are unchanged with chronic asymmetric mild to moderate elevation of the right hemidiaphragm. Mediastinum: Mediastinal contours appear normal. Heart size is normal. Bones and chest wall: No suspicious bony lesions. Overlying soft tissues appear unremarkable. IMPRESSION: No acute cardiopulmonary process. Reviewed by: Prosper Disla MD on 09/28/2023 10:54 PM PDT Approved by: Prosper Disla MD on 09/28/2023 10:54 PM PDT Station ID: [id number]
[2023-09-28] MEDS ORDERED: iohexoL-300 100 ML VIAL ONE (23:09)
[2023-09-28] MEDS: INSULIN REGULAR HUMAN 300 UNIT/3 ML VIAL IVP STA (23:27)
[2023-09-28] MEDS: SODIUM CHLORIDE 0.9% 1,000 ML IV STA (23:29)
[2023-09-28] MEDS: iohexoL-300 100 ML VIAL IVP ONE (23:50)
--- NOTE | 2023-09-28 23:55 | CT Report ---
PROCEDURE: Head W/O Stroke Protocol INDICATIONS: acute AMS TECHNIQUE: Noncontrast 4.5 mm thick angled axial sections acquired from the foramen magnum to the vertex, with c oronal reformats. For radiation dose reduction, the following was used: automated exposure control, adjustment of mA and/or kV according to patient size. COMPARISON: Head CT 10/14/2022.. FINDINGS: Image quality: Excellent. CSF spaces: Basal cisterns are patent. No extra-axial fluid collections. Ventricles are normal in size and shape. Brain: No midline shift. No intracranial masses or hemorrhage. Gallo-white matter interface is norm al. Skull and face: Calvarium and visualized facial bones are intact, without suspicious lesions. Sinuses: Visualized sinuses and mastoids are clear. IMPRESSION: No intracranial hemorrhage found, no area of ischemic injury is identified. The CT scan appears lakshmi l for age. This study fulfills neurological imaging criteria for inclusion or exclusion of acute stroke therapie s based on available published neurological imaging guidelines. Reviewed by: Prosper Disla MD on 09/28/2023 11:54 PM PDT Approved by: Prosper Disla MD on 09/28/2023 11:54 PM PDT Station ID: [id number]
--- NOTE | 2023-09-28 23:59 | CT Report ---
PROCEDURE: Angio Head/Neck INDICATIONS: acute AMS TECHNIQUE: After the administration of intravenous contrast, 1 mm thick sections acquired from the aortic arch t hrough the [place] of [place]. 3-dimensional mptvloj-eshsiqbtm-lcknrjuprt (MIP) and/or volume renderin g reformats were acquired of the central intracranial vasculature and neck separately. For radiation dose reduction, the following was used: automated exposure control, adjustment of mA and/or kV acco rding to patient size. CONTRAST: 100 ML OMNI 300 COMPARISON: Head CT earlier same day, prior head CT 10/14/2022.. FINDINGS: Image quality: Diagnostic. HEAD CT: CSF Spaces: Basal cisterns are patent. No extra-axial fluid collections. Ventricles are normal in size and shape. Brain: No significant abnormality is seen for scanning technique. Skull and face: Calvarium and visualized facial bones appear intact, without suspicious lesions. Sinuses: Visualized sinuses and mastoids are clear. HEAD CT ANGIOGRAPHY: Anterior circulation: Intracranial internal carotid arteries are normal in size and flow. The flow within the paired anterior cerebral arteries is normal and symmetric. The flow within the middle cer ebral arteries is normal and symmetric. The anterior communicating artery is seen. No aneurysms are seen. Posterior circulation: Visualized portions of the vertebral arteries demonstrate normal caliber, and join to form a normal appearing basilar artery. Flow within the posterior cerebral arteries is norm al and symmetric. No aneurysms are seen. NECK CT ANGIOGRAPHY: Carotid system: The great vessels demonstrate a conventional anatomy as they arise from the aortic a rch. The origins of the common carotid arteries appear patent. The common carotid arteries demonstr ate normal caliber and courses. The bifurcation regions are both widely patent. The internal caroti d arteries demonstrate normal calibers and courses. Posterior circulation: The origins of the vertebral arteries both appear widely patent. The more zamora perior extracranial portions of both vertebral arteries also demonstrate normal courses and calibers. They join to form a normal appearing basilar artery. Soft tissues: Visualized neck soft tissues demonstrate no suspicious abnormalities. Bones: No suspicious bony lesions. Visualized cervical spine appears normally aligned. IMPRESSION: No significant intracranial arterial abnormality is seen. No significant abnormality is seen within the arteries of the neck. The estimate of stenosis included in the report of the imaging study was calculated using the NASCET method Reviewed by: Prosper Disla MD on 09/28/2023 11:57 PM PDT Approved by: Prosper Disla MD on 09/28/2023 11:57 PM PDT Station ID: [id number]
[2023-09-29 00:15] LABS: BILIRUBIN,URINE NEGATIVE (NEGATIVE); GLUCOSE, URINE (UA) >=1000 mg/dL (NEGATIVE); KETONES,URINE (UA) NEGATIVE (NEGATIVE); LEUKOCYTE ESTERASE, URINE NEGATIVE (NEGATIVE); NITRITE,URINE NEGATIVE (NEGATIVE); OCCULT BLOOD,URINE TRACE-LYSE (NEGATIVE); PROTEIN,URINE NEGATIVE (NEGATIVE); UROBILINOGEN,URINE 1 (NORMAL) E.U./dL (NORMAL)
[2023-09-29 00:18] LABS: CLARITY,URINE CLEAR (CLEAR)
[2023-09-29] MEDS: INSULIN REGULAR HUMAN 300 UNIT/3 ML VIAL IVP STA ×2 (00:42→02:04)
[2023-09-29] MEDS: SODIUM CHLORIDE 0.9% 1,000 ML IV STA (00:46)
[2023-09-29 02:30] VITALS: BP 135/83; O2SAT 99
== END 2023-09-29 02:26 | disposition home or self-care (01) ==
LOC: EDUNIT# → ED 21:48
DX: F03.90 Unspecified dementia, unspecified severity, without behavioral disturbance, psychotic disturbance, mood disturbance, and anxiety (principal); E11.65 Type 2 diabetes mellitus with hyperglycemia; I10 Essential (primary) hypertension; I48.91 Unspecified atrial fibrillation; Z79.4 Long term (current) use of insulin; Z79.01 Long term (current) use of anticoagulants; Z79.84 Long term (current) use of oral hypoglycemic drugs
CPT/HCPCS: 36415; 70450; 70496; 70498; 71045; 80053; 81003; 82009; 82803; 83690; 83735; 84100; 85025; 96360; 96361; 99284; J1815; Q9967; 81001; 87086